=== PATIENT | male | born 1950 | race Caucasian/White ===

== ENCOUNTER 2024-08-19 20:29 | Emergency (ER) | payer OTHER, SELFPAY ==
[2024-08-19 20:30] VITALS: BMI 20.9
[2024-08-19 21:09] VITALS: BP 119/71; PULSE 85; RESP 18; TEMP 37.1; O2SAT 99
--- NOTE | 2024-08-19 22:33 | EDNOTE_ITS ---
ED General RME/HPI General Chief complaint: General Adult/Misc Complain Stated complaint: SENT BY PCP FOR BLOOD TRANSFUSION Time Seen by Provider: 08/19/24 21:24 Arrival date/time: 08/19/24 20:29 73M with no known PMH presents to ED with sister for blood transfusion after outpatient Hgb was 6.5. Patient has outpatient EGD/colonoscopy and other evaluation in the process. Patient has no complaints and does not want to be admitted. Sister does note he's had increased weakness and unintentional weight loss in the past year. Patient does not note his stool to be abnormal. Limitations: no limitations Related Data Allergies Allergy/AdvReac Type Severity Reaction Status Date / Time No Known Allergies Allergy Verified 08/19/24 20:30 Review of Systems Review of Systems Systems Reviewed: All systems reviewed, normal except as documented Constitutional Constitutional: Reports system reviewed and no additional complaints, except as documented, Denies fever(s), Denies headache(s) and Reports weakness ENT Ears, Nose, Mouth, and Throat: Denies disequilibrium and Denies headache(s) Cardiovascular Cardiovascular: Reports system reviewed and no additional complaints, except as documented, Denies chest pain and Denies dyspnea Respiratory Respiratory: Reports system reviewed and no additional complaints, except as documented, Denies cough and Denies dyspnea Gastrointestinal Gastrointestinal: Reports system reviewed and no additional complaints, except as documented, Denies abdominal pain, Denies nausea and Denies vomiting Neurologic Neurologic: Reports system reviewed and no additional complaints, except as documented, Reports as per HPI, Denies confusion, Denies disequilibrium, Denies headache(s) and Reports weakness Psychiatric Psychiatric: Denies confusion Past Medical History Social History SMOKING STATUS: Current every day smoker ED Exam General Limitations: Present no limitations General appearance: Present alert and in no apparent distress Head Head exam: Present atraumatic Eye Eye exam: Present normal appearance, PERRL and EOMI ENT ENT exam: Present normal exam, normal oropharynx and mucous membranes moist Neck Neck exam: Present normal inspection, full ROM and trachea midline Chest Chest inspection: Present normal inspection and symmetric chest wall rise Respiratory Respiratory exam: Present normal lung sounds bilaterally Cardiovascular Cardiovascular exam: Present regular rate, normal rhythm and normal heart sounds Abdominal Exam Abdominal exam: Present soft and normal bowel sounds Extremities Exam Extremities exam: Present normal inspection and full ROM Back Exam Back exam: Present normal inspection and full ROM Neurological Exam Neurological exam: Present alert, oriented X3 and CN II-XII intact Psychiatric Psychiatric exam: Present normal affect and normal mood Skin Skin exam: Present warm, dry, intact and normal color Course Course Course Narrative: 73M with no known PMH presents to ED with sister for blood transfusion after outpatient Hgb was 6.5. Patient has outpatient EGD/colonoscopy and other evaluation in the process. Patient has no complaints and does not want to be a dmitted. Sister does note he's had increased weakness and unintentional weight loss in the past year. Patient does not note his stool to be abnormal. Physical exam reveals no ab tenderness/mass. Patient is afebrile, calm, and alert. Patient given 2 units. Patient again wants to be discharged and will follow-up outpatient. Patient and his sister would prefer another GI specialist. Quality Measures none Orders Category Date Time Status Insert IV NOW Care 08/19/24 21:25 Active Transfuse,blood/blood products ONCE Care 08/19/24 22:49 Active Type and Screen Stat Lab 08/19/24 21:47 Completed prbc [Red Blood Cells] Stat Lab 08/19/24 21:47 Completed Vital Signs Vital signs: Vital Signs Temperature 98.8 F 08/19/24 21:09 Pulse Rate 85 08/19/24 21:09 Respiratory Rate 18 08/19/24 21:09 Blood Pressure 119/71 08/19/24 21:09 Pulse Oximetry (%) 99 08/19/24 21:09 Oxygen Delivery Method Room Air 08/19/24 21:09 O2 at 99% on RA and WNLs MDM Patient data External records reviewed:: [facility] previous records Clinical information provided by:: patient and family Social determinants that could affect healthcare access:: none Patient has the following chronic illnesses:: none How is presenting disease/condition affected by chronic disease/condition?: no chronic disease Evaluation data The following diagnostics were reviewed and interpreted by me:: lab results Lab and/or radiology exams considered but not ordered:: ordered Interpretation Summary: above Medications Medications considered but not ordered:: not ordered Medication administrations:: n/a Consultations Consultation(s) initiated? (list below): No Diagnosis Differential Diagnosis ED Complaint MDM: anemia, colon cancer, GERALD, gastritis Most likely diagnosis given after review of the tests above:: anemia Admission Indicated Admission indicated?: not indicated Explain why admission is indicated or not indicated:: outpatient Admission Request Was there a request for admission?: No Disposition Plan Disposition Plan: Discharge Discharge Attestation Discharge Attestation: The patient and all family members were given an opportunity to ask questions and understood the discharge instructions. Discharge instructions specifically effects, indications for sooner follow up or return to the emergency department, and the expected course of current diagnosis. Patient condition: Stable Medical Decision Making Differential Diagnosis Differential Diagnosis: anemia, colon cancer, GERALD, gastritis Lab Data Labs: Lab Results 08/19/24 Range/Units 21:47 Blood Type O Positive Antibody Screen NEGATIVE Crossmatch See Detail Blood Bank Wristband ID Yes Discharge Plan Plan Patient Disposition: HOME (Self Care) Disposition Comment: Stable Prescriptions/Referrals Referrals: Ashwin Hammer MD [Primary Care Provider] - In 1 week Problem List Clinical Impression: Anemia Patient/Caregiver Discharge Instructions Education Materials: Anemia Additional Instructions: Please follow-up with PCP within 24-48 hours and return immediately if symptoms worsen. Print Language: Uzbek Stand Alone Forms: Patient Portal Info Letter TAMY/WILDA Supervising Physician YECENIA Supervising Physician: Dr. Sandy
[2024-08-20] VITALS (8 sets, daily range): BP systolic 101–168; BP diastolic 48–90; PULSE 64–75; RESP 18; TEMP 36.8–37.1; O2SAT 99–100
--- NOTE | 2024-08-20 06:40 | PC.NURSE ---
pt tolerated 2 units of blood. No advers reactions. Pt feels better.
== END 2024-08-20 06:43 | disposition home or self-care (01) ==
PROVIDERS: Emergency Provider Emergency Medicine; PCP Family Medicine
DX: D64.9 Anemia, unspecified (principal)
CPT/HCPCS: 36415; 36430; 86850; 86900; 86901; 86923; 99285; P9016

== ENCOUNTER → 2024-08-19 | Outpatient (CLI) | payer MEDICARE, SELFPAY ==
--- NOTE | 2024-08-19 16:08 | XR_ITS ---
Examination: Lumbar spine, 5 views Technique: Lumbar spine AP, lateral, coned lateral lower lumbar spine, bilateral obliques 5 views Exam date and time: August 19, 2024 1620 hours INDICATIONS: Patient fell last year with injury to the lower back, lower back pain FINDINGS: Moderate narrowing hip joints Moderate to advanced diffuse facet arthropathy Grade 1 anterolisthesis L4 on L5 No lumbar fracture Mild lumbar spondylosis Mild to moderate diffuse lumbar degenerative disc disease, most prominent L4-L5, L5-S1 IMPRESSION: Mild to moderate diffuse lumbar degenerative disc disease, most prominent L4-L5, L5-S1 with significant spinal stenosis
[2024-08-19 17:11] LABS: Collection Type, Urine Clean Catch; Squamous Epithelial Cell,Urine 0 /hpf (0-5)
[2024-08-19 17:31] LABS: Basophils # (Auto) 0.1 Thou/mm3 (0.0-0.2); Basophils % (Auto) 1 % (0-2.5); Eosinophils # (Auto) 0.1 Thou/mm3 (0.0-0.5); Eosinophils % (Auto) 1 % (0-10); Hematocrit 22.3 % (41.0-53.0); Immature Granulocytes % (Auto) 0 % (0-0); Immature Granulocytes Auto 0.05 Thou/mm3 (0.00-0.00); Lymphocytes # (Auto) 1.5 Thou/mm3 (1.0-4.8); Lymphocytes % (Auto) 13 % (10-50); Mean Corpuscular HGB Conc 29.1 g/dl (31.0-37.0); Mean Corpuscular Hemoglobin 19.3 pg (25.0-35.0); Mean Corpuscular Volume 66 fL (80-100); Monocytes # (Auto) 0.8 Thou/mm3 (0.0-0.8); Monocytes % (Auto) 7 % (0-12); Neutrophils # (Auto) 8.8 Thou/mm3 (1.8-7.7); Neutrophils % (Auto) 78 % (37-80); Nucleated Red Blood Cell % 0 /100 WBC (0); Platelet Count 353 Thou/mm3 (140-440); RDW Standard Deviation 42.5 fL (35.1-43.9); Red Blood Count 3.37 Miln/mm3 (4.50-5.90); White Blood Count 11.4 Thou/mm3 (3.8-10.6)
[2024-08-19 17:55] LABS: Bilirubin,Urine Negative (Negative); Blood,Urine Negative (Negative); Clarity,Urine Clear (Clear/Hazy); Color,Urine Colorless (Lt Yel-Yel); Culture Indicated,Urine Not Indicated; Glucose, Urine Negative (Negative); Hyaline Casts,Urine < 1 /hpf (0-1); Ketones,Urine Negative (Negative); Leukocyte Esterase,Urine Negative (Negative); Nitrite,Urine Negative (Negative); Protein,Urine Trace (Neg - Trace); RBC,Urine < 1 /hpf (0-3); Specific Gravity,Urine 1.008 (1.001-1.035); Urobilinogen,Urine Negative mg/dL (0.0-1.0); WBC,Urine < 1 /hpf (0-5)
[2024-08-19 18:02] LABS: Alanine Aminotransferase < 7 U/L (10-49); Albumin, Serum 3.9 gm/dL (3.4-4.8); Albumin/Globulin Ratio 1.9 (1.2-2.2); Alkaline Phosphatase 90 U/L (46-116); Anion Gap 10 (7-16); Aspartate Amino Transferase 11 U/L (0-34); BUN/Creatinine Ratio 13 Ratio (12-20); Bilirubin,Total 0.4 mg/dL (0.3-1.2); Blood Urea Nitrogen 12 mg/dL (9-23); Calcium 9.3 mg/dL (8.3-10.6); Calcium (Corrected) 9.4 mg/dL (8.5-10.1); Carbon Dioxide 25.6 mMol/L (20.0-31.0); Chloride 104 mMol/L (98-107); Creatinine (Component) 0.9 mg/dL (0.6-1.3); Globulin 2.1 gm/dL (2.3-3.5); Glucose 197 mg/dL (74-106); Osmolality,Calculated 284 (275-295); Potassium 3.7 mMol/L (3.4-5.1); Sodium 140 mMol/L (136-145); eGFR > 60 See Note
[2024-08-19 18:03] LABS: AFP Non-Pregnant < 1.30 ng/mL (<8.10); CA 15-3 5.4 U/mL (<32.4); Carcinoembryonic Antigen 2.2 ng/mL (0.0-5.0)
[2024-08-19 18:03] LABS: Creatinine MALB Rnd Ur 32 mg/dL (30-125); Microalbumin Creat Ratio 309 mg/gCrea (<30); Microalbumin, Random Urine 99 mg/L (0-300)
[2024-08-19 18:11] LABS: Glucose Estimated Average 146 mg/dL (80-131); Hemoglobin A1C 6.7 % Hgb (4.8-6.0)
[2024-08-19 18:27] LABS: Hemoglobin 6.5 g/dL (13.5-16.0)
[2024-08-19 18:56] LABS: PSA Medicare Annual Scrn 1.34 ng/mL (0-4.00)
[2024-08-29 06:47] LABS: CA 19-9 Antigen* 54 U/mL (<34)
== END | disposition home or self-care (01) ==
LOC: CDIM 16:02 → COPL 16:42
PROVIDERS: Referring Provider Internal Medicine; Visit Provider Radiology Diagnostic Radiology
DX: M51.369 Other intervertebral disc degeneration, lumbar region without mention of lumbar back pain or lower extremity pain (principal); M48.061 Spinal stenosis, lumbar region without neurogenic claudication; R63.4 Abnormal weight loss; R05.3 Chronic cough; R42 Dizziness and giddiness; R32 Unspecified urinary incontinence; E11.65 Type 2 diabetes mellitus with hyperglycemia
CPT/HCPCS: 36415; 72110; 80053; 81001; 82043; 82105; 82378; 82570; 83036; 84153; 85025; 86300; 86301; G0103

== ENCOUNTER → 2024-08-26 | Outpatient (CLI) | payer OTHER, SELFPAY ==
--- NOTE | 2024-08-26 | XR_ITS ---
Examination: CT chest, without intravenous contrast. Sagittal and coronal 2-D reconstructions. Exam date and time: August 26, 2024 1536 hours INDICATIONS: Smoking history 60 years D dependence CTDI:vol (mGy) 10.3 DLP: (mGycm) 415 Technique: Multiple 3.0 mm axial sections of the chest to been obtained. Bone and lung density settings are obtained. Sagittal and coronal 2-D reconstructions have been obtained. Low dose protocols were performed. One or more of the following dose reduction techniques were used; automated exposure control, adjustment of the mA and/or KV according to patient size, use of iterative reconstruction technique. Findings: Thoracic aortic calcification no aneurysmal dilatation Pulmonary artery segments are not enlarged No paratracheal tracheobronchial or bronchopulmonary adenopathy 4 mm pleural-based pulmonary nodule left upper lobe image 17 2 mm pulmonary nodule left upper lobe image 20 2 mm pulmonary nodule right upper lobe image 40 3 mm pulmonary nodule left lower lobe image 54 COPD with areas of airspace destruction No focal liver or splenic lesion Please see the CT abdomen pelvis report IMPRESSION: COPD Noncalcified pulmonary nodules as above, with this study as baseline recommend 6 month follow-up CT chest without contrast
--- NOTE | 2024-08-26 15:13 | XR_ITS ---
Examination: CT abdomen and pelvis without contrast. Coronal 3-D reconstructions. Sagittal 2-D reconstructions. Date and time of exam:August 26, 2024 1536 hours INDICATIONS: 30 pound Weight loss in 3 months, abdominal pain beginning one week ago CTDI: vol (mGy): 6.52 DLP: (mGycm): 396 Technique: Axial images of the abdomen have been obtained, 3 mm slice thickness Intravenous contrast material has not been administered. Low dose protocols were performed. One or more of the following dose reduction techniques were used; automated exposure control, adjustment of the mA and/or KV according to patient size, use of iterative reconstruction technique. Findings: Liver mildly irregular in contour No focal liver or splenic lesions Possible gallbladder wall thickening Retrocardiac gastric hernia No pancreatic mass No renal or ureteral calculi Mild ascites 3 cm fat-containing umbilical hernia Normal appendix No bladder mass or bladder calculi Moderate osteopenia IMPRESSION: Suspect primary hepatocellular disease Mild ascites Recommend hepatobiliary sonography to exclude gallbladder wall thickening Normal appendix No bowel obstruction Suspicious for bilateral hydroceles, consider testicular sonography follow-up
[2024-08-26 15:17] LABS: Basophils # (Auto) 0.1 Thou/mm3 (0.0-0.2); Basophils % (Auto) 1 % (0-2.5); Eosinophils # (Auto) 0.2 Thou/mm3 (0.0-0.5); Eosinophils % (Auto) 2 % (0-10); Hematocrit 29.1 % (41.0-53.0); Immature Granulocytes % (Auto) 1 % (0-0); Immature Granulocytes Auto 0.06 Thou/mm3 (0.00-0.00); Lymphocytes # (Auto) 2.1 Thou/mm3 (1.0-4.8); Lymphocytes % (Auto) 16 % (10-50); Mean Corpuscular HGB Conc 29.6 g/dl (31.0-37.0); Mean Corpuscular Hemoglobin 21.1 pg (25.0-35.0); Mean Corpuscular Volume 71 fL (80-100); Monocytes # (Auto) 0.8 Thou/mm3 (0.0-0.8); Monocytes % (Auto) 6 % (0-12); Neutrophils # (Auto) 9.7 Thou/mm3 (1.8-7.7); Neutrophils % (Auto) 75 % (37-80); Nucleated Red Blood Cell % 0 /100 WBC (0); Platelet Count 340 Thou/mm3 (140-440); RDW Standard Deviation 57.2 fL (35.1-43.9); Red Blood Count 4.08 Miln/mm3 (4.50-5.90)
[2024-08-26 15:58] LABS: Hemoglobin 8.6 g/dL (13.5-16.0)
== END | disposition home or self-care (01) ==
PROVIDERS: PCP Internal Medicine; Referring Provider Internal Medicine; Visit Provider Radiology Diagnostic Radiology
DX: R18.8 Other ascites (principal); J44.9 Chronic obstructive pulmonary disease, unspecified; R91.1 Solitary pulmonary nodule; D64.9 Anemia, unspecified
CPT/HCPCS: 36415; 71271; 74176; 85025

== ENCOUNTER 2024-09-01 21:30 | Inpatient (IN) | payer OTHER, MEDICARE, SELFPAY ==
[2024-09-01 21:34] VITALS: BP 139/66; PULSE 72; RESP 19; TEMP 36.8; O2SAT 98
--- NOTE | 2024-09-01 22:47 | EKG_ITS ---
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
[2024-09-01 23:36] LABS: Basophils # (Auto) 0.1 Thou/mm3 (0.0-0.2); Basophils % (Auto) 1 % (0-2.5); Eosinophils # (Auto) 0.3 Thou/mm3 (0.0-0.5); Eosinophils % (Auto) 2 % (0-10); Hematocrit 26.7 % (41.0-53.0); Immature Granulocytes % (Auto) 0 % (0-0); Immature Granulocytes Auto 0.05 Thou/mm3 (0.00-0.00); Lymphocytes # (Auto) 2.2 Thou/mm3 (1.0-4.8); Lymphocytes % (Auto) 20 % (10-50); Mean Corpuscular Hemoglobin 21.6 pg (25.0-35.0); Mean Corpuscular Volume 72 fL (80-100); Monocytes # (Auto) 0.8 Thou/mm3 (0.0-0.8); Monocytes % (Auto) 7 % (0-12); Neutrophils # (Auto) 7.9 Thou/mm3 (1.8-7.7); Neutrophils % (Auto) 70 % (37-80); Nucleated Red Blood Cell % 0 /100 WBC (0); Platelet Count 323 Thou/mm3 (140-440); RDW Standard Deviation 61.3 fL (35.1-43.9); White Blood Count 11.4 Thou/mm3 (3.8-10.6)
[2024-09-01 23:46] VITALS: BMI 23.1
[2024-09-01 23:54] LABS: Partial Thromboplastin Time 23.9 Seconds (22.0-36.0); Prothrombin Time 11.3 Seconds (9.0-12.2)
[2024-09-02] VITALS (17 sets, daily range): BP systolic 104–163; BP diastolic 49–92; PULSE 65–90; RESP 12–19; TEMP 36.2–36.6; O2SAT 94–100; BMI 23.6
[2024-09-02 00:05] LABS: Alanine Aminotransferase 7 U/L (10-49); Albumin, Serum 3.8 gm/dL (3.4-4.8); Albumin/Globulin Ratio 1.7 (1.2-2.2); Alkaline Phosphatase 89 U/L (46-116); Anion Gap 8 (7-16); Aspartate Amino Transferase 12 U/L (0-34); BUN/Creatinine Ratio 19 Ratio (12-20); Bilirubin,Total 0.3 mg/dL (0.3-1.2); Blood Urea Nitrogen 15 mg/dL (9-23); Calcium 9.1 mg/dL (8.3-10.6); Calcium (Corrected) 9.3 mg/dL (8.5-10.1); Chloride 101 mMol/L (98-107); Creatinine (Component) 0.8 mg/dL (0.6-1.3); Estimated Creatinine Clearance 79.6 mL/min (>60); Globulin 2.3 gm/dL (2.3-3.5); Glucose 194 mg/dL (74-106); Osmolality,Calculated 277 (275-295); Potassium 3.5 mMol/L (3.4-5.1); Sodium 136 mMol/L (136-145); Total Protein 6.1 gm/dL (5.7-8.2); Troponin I < 0.020 ng/mL (0.0-0.045); eGFR > 60 See Note
--- NOTE | 2024-09-02 00:40 | PD.EDADDENDU ---
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 Heme positive dark stool No hemorrhoids.
--- NOTE | 2024-09-02 00:48 | PD.EDADULT ---
ED General RME/HPI General Chief complaint: Dizziness Stated complaint: DIZZINESS/LOW HR/HYPOTENSION Time Seen by Provider: 09/01/24 22:47 Arrival date/time: 09/01/24 21:30 73M with history of afib (doesn't take meds) presents to ED with son for low HgB outpatient. Patient was here 2 weeks ago with HgB 6.5 and was given 2 units. At that time, patient did not want to be admitted for EGD/colonoscopy and wanted to wait for outpatient process. Family was able to convince him today. Patient has no complaints but does note that he's been feeling increased weakness and unintentional weight loss in the past year. Recent outpatient CT w/o contrast was unremarkable. Limitations: no limitations Related Data Allergies Allergy/AdvReac Type Severity Reaction Status Date / Time No Known Allergies Allergy Verified 09/01/24 21:36 Review of Systems Review of Systems Systems Reviewed: All systems reviewed, normal except as documented Constitutional Constitutional: Reports system reviewed and no additional complaints, except as documented, Reports as per HPI, Denies fever(s), Denies headache(s), Reports weakness and Reports weight loss ENT Ears, Nose, Mouth, and Throat: Denies disequilibrium and Denies headache(s) Cardiovascular Cardiovascular: Reports system reviewed and no additional complaints, except as documented, Denies chest pain and Denies dyspnea Respiratory Respiratory: Reports system reviewed and no additional complaints, except as documented, Denies cough and Denies dyspnea Gastrointestinal Gastrointestinal: Reports system reviewed and no additional complaints, except as documented, Denies abdominal pain, Denies nausea and Denies vomiting Neurologic Neurologic: Reports system reviewed and no additional complaints, except as documented, Reports as per HPI, Denies confusion, Denies disequilibrium, Denies headache(s) and Reports weakness Psychiatric Psychiatric: Denies confusion Past Medical History Past Medical History CARDIAC: Positive Atrial Fibrillation and Hypertension; Negative Congestive Heart Failure RESPIRATORY: Negative Chronic Obstructive Pulmonary Disease (COPD) GENITOURINARY: Negative Renal Disease ENDOCRINE: Negative Diabetes Mellitus Type 1 or Diabetes Mellitus Type 2 Social History SMOKING STATUS: Light (< 1 pack/day) ED Exam General Limitations: Present no limitations General appearance: Present alert and in no apparent distress Head Head exam: Present atraumatic Eye Eye exam: Present normal appearance, PERRL and EOMI ENT ENT exam: Present normal exam, normal oropharynx and mucous membranes moist Neck Neck exam: Present normal inspection, full ROM and trachea midline Chest Chest inspection: Present normal inspection and symmetric chest wall rise Respiratory Respiratory exam: Present normal lung sounds bilaterally Cardiovascular Cardiovascular exam: Present regular rate, normal rhythm and normal heart sounds Abdominal Exam Abdominal exam: Present soft and normal bowel sounds Extremities Exam Extremities exam: Present normal inspection and full ROM Back Exam Back exam: Present normal inspection and full ROM Neurological Exam Neurological exam: Present alert, oriented X3 and CN II-XII intact Psychiatric Psychiatric exam: Present normal affect and normal mood Skin Skin exam: Present warm, dry, intact and normal color Course Course Course Narrative: 73M with history of afib (doesn't take meds) presents to ED with son for low HgB outpatient. Patient was here 2 weeks ago with HgB 6.5 and was given 2 units. At that time, patient did not want to be admitted for EGD/colonoscopy and wanted to wait for outpatient process. Family was able to convince him today. Patient has no complaints but does note that he's been feeling increased weakness and unintentional weight loss in the past year. Recent outpatient CT w/o contrast was unremarkable. Physical exam reveals no ab tenderness/mass. Patient is afebrile, calm, and alert. Hgb 8.0 today. Coags and CMP unremarkable. Guaiac stool positive. EKG shows afib w/o RVR. Trop normal. Spoke to Dr. Rapp who will consult and IM (spoke to Dr. Huerta) will admit. Quality Measures none Orders Category Date Time Status COVID-19 Screening Questionnaire NOW Care 09/02/24 00:58 Active Decision to Admit X1 Care 09/02/24 00:58 Active EKG (ED ONLY) *Do not use* NOW Care 09/01/24 22:47 Completed Insert IV NOW Care 09/01/24 22:47 Active guaiac [Occult Blood,Stool (Nursing)] NOW Care 09/02/24 00:33 Active Consult to Gastroenterology Stat Cons 09/02/24 00:58 Ordered EKG (ED Only) Stat Exams 09/01/24 22:47 Draft CBC Stat Lab 09/01/24 23:11 Completed CMP [Comprehensive Metabolic Panel] Stat Lab 09/01/24 23:11 Completed INR [Prothrombin Time with INR] Stat Lab 09/01/24 23:11 Completed PTT [Partial Thromboplastin Time] Stat Lab 09/01/24 23:11 Completed Troponin I Stat Lab 09/01/24 23:11 Completed Type and Screen Stat Lab 09/01/24 23:11 Results Vital Signs Vital signs: Vital Signs Temperature 98.3 F 09/01/24 21:34 Pulse Rate 72 09/01/24 21:34 Respiratory Rate 19 09/01/24 21:34 Blood Pressure 139/66 H 09/01/24 21:34 Pulse Oximetry (%) 98 09/01/24 21:34 Oxygen Delivery Method Room Air 09/01/24 21:34 O2 at 98% on RA and WNLs MDM Patient data External records reviewed:: [facility] previous records Clinical information provided by:: patient Social determinants that could affect healthcare access:: none Patient has the following chronic illnesses:: afib How is presenting disease/condition affected by chronic disease/condition?: exacerbated by Evaluation data The following diagnostics were reviewed and interpreted by me:: lab results and EKG tracing(s) Lab and/or radiology exams considered but not ordered:: ordered Interpretation Summary: above Medications Medications considered but not ordered:: ordered Medication administrations:: above Consultations Consultation(s) initiated? (list below): Yes Diagnosis Differential Diagnosis ED Complaint MDM: GI bleed, CKD, anemia Most likely diagnosis given after review of the tests above:: anemia Admission Indicated Admission indicated?: indicated Explain why admission is indicated or not indicated:: low hGB and GI bleed Admission Request Was there a request for admission?: Yes Admission Attestation Admission request attestation: Discussed case with [Bradley] from Hospitalist service regarding admission. Discussed patients ED course, exam findings, labs, and radiology results. The Hospitalist [agrees] to accept the patient for admission. Disposition Plan Disposition Plan: Admit Medical Decision Making Differential Diagnosis Differential Diagnosis: GI bleed, CKD, anemia Lab Data 09/01/24 23:11 09/01/24 23:11 Labs: Lab Results 09/01/24 Range/Units 23:11 WBC 11.4 H (3.8-10.6) Thou/mm3 RBC 3.70 L (4.50-5.90) Miln/mm3 Hgb 8.0 L (13.5-16.0) g/dL Hct 26.7 L (41.0-53.0) % MCV 72 L (80-100) fL MCH 21.6 L (25.0-35.0) pg MCHC 30.0 L (31.0-37.0) g/dl RDW Std Deviation 61.3 H (35.1-43.9) fL Plt Count 323 (140-440) Thou/mm3 Neut % (Auto) 70 (37-80) % Lymph % (Auto) 20 (10-50) % [place] % (Auto) 7 (0-12) % Eos % (Auto) 2 (0-10) % Baso % (Auto) 1 (0-2.5) % Neut # (Auto) 7.9 H (1.8-7.7) Thou/mm3 Lymph # (Auto) 2.2 (1.0-4.8) Thou/mm3 [place] # (Auto) 0.8 (0.0-0.8) Thou/mm3 Eos # (Auto) 0.3 (0.0-0.5) Thou/mm3 Baso # (Auto) 0.1 (0.0-0.2) Thou/mm3 Immature Gran # (Auto) 0.05 H (0.00-0.00) Thou/mm3 Absolute Nucleated RBC 0.00 (0.00-0.00) Thou/mm3 Immature Gran % 0 (0-0) % Nucleated RBC % 0 (0) /100 WBC PT 11.3 (9.0-12.2) Seconds INR 1.0 (0.9-1.3) APTT 23.9 (22.0-36.0) Seconds Sodium 136 (136-145) mMol/L Potassium 3.5 (3.4-5.1) mMol/L Chloride 101 (98-107) mMol/L Carbon Dioxide 27.0 (20.0-31.0) mMol/L Anion Gap 8 (7-16) BUN 15 (9-23) mg/dL Creatinine 0.8 (0.6-1.3) mg/dL Estim Creat Clear Calc 79.6 (>60) mL/min eGFR > 60 (60 - ) See Note BUN/Creatinine Ratio 19 (12-20) Ratio Glucose 194 H (74-106) mg/dL Calculated Osmolality 277 (275-295) Calcium 9.1 (8.3-10.6) mg/dL Corrected Calcium 9.3 (8.5-10.1) mg/dL Total Bilirubin 0.3 (0.3-1.2) mg/dL AST 12 (0-34) U/L ALT 7 L (10-49) U/L Alkaline Phosphatase 89 (46-116) U/L Troponin I < 0.020 (0.0-0.045) ng/mL Total Protein 6.1 (5.7-8.2) gm/dL Albumin 3.8 (3.4-4.8) gm/dL Globulin 2.3 (2.3-3.5) gm/dL Albumin/Globulin Ratio 1.7 (1.2-2.2) Blood Bank Wristband ID Yes Discharge Plan Plan Patient Disposition: Admit Acute Care w/in Hospital Problem List Clinical Impression: Anemia Patient/Caregiver Discharge Instructions Print Language: Taiwanese Stand Alone Forms: Jodie Award Info., Patient Portal Info Letter
--- NOTE | 2024-09-02 01:39 | ESHP_ITS ---
Documentation for date of: 09/02/24 [facility] History of Present Illness History of present illness: This is a 73-year-old male with PMHx of A-fib, currently not medicated, presenting after ground-level fall and history of dark stool. He is hard of hearing, lives at home with his son. Stated he has been feeling dizzy and lightheaded while getting up from a seated position. Evidently last night he fell while getting up from his couch. He did not hit his head or lose consciousness. States he remembers the event, did not pass out or lose consciousness. However, history is unclear, he is a poor historian, and will need to discuss this with his son in the AM. Had history of ongoing dark stool over the last few months. He was in the ED 2 weeks ago with a hemoglobin of 6.5. He was transfused 2 units in the ED, posttransfusion hemoglobin was 8.6, he refused admission for workup at that time. He is still having daily dark stool. He was seen by his PCP earlier today who recommended hospital visit. He has a history of A-fib but currently not taking any medication. Has a longstanding history of tobacco smoking, about 3 pack a day, recently cut down to 1 pack daily. He previously used to drink alcohol, but not currently. Denies or illicit drug use. Reports substantial weight loss since his daughter 1 year ago. Evidently he is to weigh 250 lbs, his current weight is 152 lbs. I did ask if this was unintentional, purposeful, or due to lack of appetite, but he refused to comment, stated he is not depressed, denied night sweats or chills. Denied fever, chills, head trauma, chest pain, shortness of breath, palpitation, abdominal pain, N/V/D/C, dysuria, hematuria, urinary frequency or urgency. ED COURSE: Afebrile, BP 139/66, HR 72, RR 19, satting 98% on room air. Hgb 8.0, MCV 72, HCT 26.7, WBC 11.4, platelets 323. Normal coag studies. CHEM panel significant for GLUCOSE 194, otherwise normal including LFTs, troponin, and creatinine. EKG showed A-fib, HR 84, no acute ST changes. PMHx: A-fib. PSHx: Left pinky partial amputation. MEDS: None. ALLERGIES: NKA. FHx: No significant history. SH: Current heavy smoker, previous alcohol use, no marijuana or illicit drug use. Exam Vital Signs Temp Pulse Resp BP Pulse Ox O2 Del Method 98.3 F 70 16 156/81 H 97 Room Air 09/01/24 21:34 09/02/24 00:29 09/02/24 00:29 09/02/24 00:29 09/02/24 00:29 09/02/24 00:29 Narrative Exam GENERAL * Normal appearing adult male, no apparent distress. HEENT * NCAT.?SUGAR. Oral mucosa is moist. Patent Nares NECK * Supple, nontender, no thyromegaly, no meningismus, no JVD, no step offs CHEST * RRR, no m/g/r * CTAB, no w/r/r. Symmetrical chest rise. No intercostal subcostal retraction * Atraumatic, nontender, no crepitus, symmetrical expansion. ABDOMEN * Soft, flat, nontender. No guarding/rebound tenderness/masses. * Bowel sounds presents EXTREMITIES * No edema/cyanosis.? SKIN * Warm and dry, no jaundice/rashes. * Chronic senile purpura. NEUROMUSCULAR * No lumbar or midline, no CVA, no paraspinal muscle spasm or tenderness. * Moves all 4 extremities well, with full ROM and good CSM. * PIZANO x4, CN II-XII grossly intact. * No focal neurologic deficits. PSYCHIATRY * Normal mood and affect, cooperative, no SI or HI or hallucinations. Results: Labs 09/02/24 05:14 09/01/24 23:11 Labs: Short CBC 09/01/24 Range/Units 23:11 WBC 11.4 H (3.8-10.6) Thou/mm3 Hgb 8.0 L (13.5-16.0) g/dL Hct 26.7 L (41.0-53.0) % Plt Count 323 (140-440) Thou/mm3 BMP 09/01/24 23:11 Sodium 136 Potassium 3.5 Chloride 101 Carbon Dioxide 27.0 BUN 15 Creatinine 0.8 Glucose 194 H Calcium 9.1 Cardiac Enzymes 09/01/24 Range/Units 23:11 Troponin I < 0.020 (0.0-0.045) ng/mL Liver Function 09/01/24 Range/Units 23:11 Total Bilirubin 0.3 (0.3-1.2) mg/dL AST 12 (0-34) U/L ALT 7 L (10-49) U/L Alkaline Phosphatase 89 (46-116) U/L Albumin 3.8 (3.4-4.8) gm/dL Quality Measures Quality Measures none Advance care planning discussed with:: patient Medications Home Medications and Allergies Allergies Allergy/AdvReac Type Severity Reaction Status Date / Time No Known Allergies Allergy Verified 09/01/24 21:36 Visit Medications Acetaminophen (Acetaminophen 325 Mg Tablet) 650 mg PO Q6H PRN PRN Reason: PAIN SCALE 1-3 (mild Stop: 10/02/24 01:26 Acetaminophen (Acetaminophen 325 Mg Tablet) 650 mg PO Q6H PRN PRN Reason: Fever >100.4 Stop: 10/02/24 01:26 Ondansetron HCl (Ondansetron Inj 2 Mg/Ml Inj 2 Ml) 4 mg IV Q6H PRN; Protocol PRN Reason: NAUSEA OR VOMITING Stop: 10/02/24 01:26 Pantoprazole Sodium (Pantoprazole Inj 40 Mg Vial) 40 mg IVP QDAY ANTONI Stop: 10/02/24 08:59 Assessment & Plan Plan In summary: 73-year-old male with past medical history of atrial fibrillation, admitted for presyncope in settings of GI blood loss anemia. Appreciate recommendation from GI team. Presyncope DDx: Orthostatics 2/2 blood loss, possible arrhythmia. Reports ongoing dizziness and lightheadedness when rising from seated position. Presyncopal episode last night while getting up from couch. Denied head trauma, loss consciousness. Remember events clearly, no seizure-like activities, no postictal symptoms or confusion. Vitals and labs relatively WNL except for WBC 11.4, Hgb 8.0 and GLUCOSE 196. No focal neurological deficits, low suspicion for CVA. ? Treating underlying cause as below ? Refer to physical therapy when able ? Pending lipid panel ? Pending TSH, T4 ? Consider echocardiogram Acute GI blood loss anemia Unintentional weight loss He has history of dark stool, was in the ED 2 weeks ago with hemoglobin 6.4, transfuse 1 unit, refused admission at that time, discharged with hemoglobin 8.6 Returning with persistent dark stool, Hgb 8.0. Reports 100 lb weight loss over the last year, following the of his daughter. FOBT positive. Normal coag studies. Abdominal CT from last week showed no evidence of acute GI bleed. No previous endoscopy or colonoscopy. No B symptoms. Dr. Rapp was consulted by ED, recommended admission for endoscopy. ? NPO ? Ordered type and screening, and 1 unit PRBC ? Transfuse if Hgb less than 7 ? Continue PROTONIX 40 mg BID ? Pending GI recommendations Atrial fibrillation, rate controlled Seen on EKG, HR 84. Currently does not take any medications. Possibly contributing to [id number] 2 indicate 2-5% CVA risk annually. HAS-BLED to indicate 4.1% risk of bleed. ? Consider anticoagulation once anemia resolved Elevated GLUCOSE Admission GLUCOSE 194. A1c 6.7 from last week. No home glycemic control agents. ? INSULIN sliding scale ? Accu-Cheks Health maintenance Diet: NPO GI prophylaxis: PROTONIX DVT prophylaxis: SCD Antibiotics: Not indicated CODE STATUS: DNR Disposition: Presyncope workup, acute GI bleed, GI recommendations. Patient case was discussed with attending, Aldo Peterson MD. Myrtle Butler DO PGYI Attending Provider Attestation/Addendum I attest that I was physically present for the evaluation, physical examination, lab and imaging review of the patient with the residents. I discussed the case with the residents and agree with the findings and plans of care as documented above. Patient is a 73-year-old male with past medical history of A-fib presented to the ED following ground-level fall. Patient had a fall yesterday while getting up from the couch. Denies hitting his head. Patient had a recent visit to the ED about 2 weeks ago where he was found to have hemoglobin of 6.5. He received 2 units of PRBC, refused admission at that time. He does have a history of dark stool, was seen by his PCP earlier today who recommended to visit the ED. He also mentioned about weight loss from 250 to 150 pounds over last few years since his daughter . In the ED, vital signs are within normal limits. Hemoglobin is 8.0. Glucose level at 194, rest of the labs are nonconcerning. EKG was obtained in the ED which shows A-fib, rate controlled. GI was consulted by the ED, who recommended admission for further management. We will admit the patient for acute blood loss anemia secondary to GI bleeding. We will keep patient n.p.o., obtain type and cross, start on Protonix IV and obtain GI consult. We will also obtain orthostatic vitals, TSH, physical therapy for possible presyncope. Patient is currently not on any medication for A-fib. His [id number] score is 2, unable to anticoagulate for due to GI bleed. Started on insulin sliding scale for elevated glucose. Denice Peterson MD
--- NOTE | 2024-09-02 03:00 | PC.NURSE ---
0300 Hold PRBC for HG below 7.[address] Butler
[2024-09-02 05:53] LABS: Basophils # (Auto) 0.1 Thou/mm3 (0.0-0.2); Basophils % (Auto) 1 % (0-2.5); Eosinophils # (Auto) 0.4 Thou/mm3 (0.0-0.5); Eosinophils % (Auto) 4 % (0-10); Hematocrit 24.3 % (41.0-53.0); Immature Granulocytes % (Auto) 0 % (0-0); Immature Granulocytes Auto 0.03 Thou/mm3 (0.00-0.00); Lymphocytes # (Auto) 2.1 Thou/mm3 (1.0-4.8); Lymphocytes % (Auto) 19 % (10-50); Mean Corpuscular Hemoglobin 21.5 pg (25.0-35.0); Mean Corpuscular Volume 72 fL (80-100); Monocytes % (Auto) 9 % (0-12); Neutrophils # (Auto) 7.9 Thou/mm3 (1.8-7.7); Neutrophils % (Auto) 68 % (37-80); Nucleated Red Blood Cell % 0 /100 WBC (0); Platelet Count 294 Thou/mm3 (140-440); RDW Standard Deviation 60.9 fL (35.1-43.9); Red Blood Count 3.39 Miln/mm3 (4.50-5.90); White Blood Count 11.6 Thou/mm3 (3.8-10.6)
[2024-09-02 05:55] LABS: Hemoglobin 7.3 g/dL (13.5-16.0)
[2024-09-02 06:33] LABS: Alanine Aminotransferase < 7 U/L (10-49); Albumin, Serum 3.3 gm/dL (3.4-4.8); Albumin/Globulin Ratio 1.7 (1.2-2.2); Alkaline Phosphatase 78 U/L (46-116); Anion Gap 7 (7-16); Aspartate Amino Transferase 12 U/L (0-34); BUN/Creatinine Ratio 20 Ratio (12-20); Bilirubin,Total 0.3 mg/dL (0.3-1.2); Blood Urea Nitrogen 14 mg/dL (9-23); Calcium 8.6 mg/dL (8.3-10.6); Calcium (Corrected) 9.2 mg/dL (8.5-10.1); Carbon Dioxide 28.7 mMol/L (20.0-31.0); Cardiac Risk Estimate 2.2 RATIO (4.0-6.7); Chloride 103 mMol/L (98-107); Cholesterol 114 mg/dL (132-200); Creatinine (Component) 0.7 mg/dL (0.6-1.3); Estimated Creatinine Clearance 90.9 mL/min (>60); Free T4 (Free Thyroxine) 1.22 ng/dL (0.89-1.76); Glucose 115 mg/dL (74-106); HDL Cholesterol 53 mg/dL (40-60); LDL Cholesterol,Calculated 44 mg/dL (0-130); Magnesium 1.9 mg/dL (1.6-2.6); Osmolality,Calculated 279 (275-295); Phosphorous 3.3 mg/dL (2.4-5.1); Potassium 3.7 mMol/L (3.4-5.1); Sodium 139 mMol/L (136-145); Thyroid Stimulating Hormone 2.36 uIU/mL (0.55-4.78); Total Protein 5.3 gm/dL (5.7-8.2); Triglycerides 87 mg/dL (30-150); eGFR > 60 See Note
[2024-09-02] MEDS: PANTOPRAZOLE INJ 40 MG VIAL IVP ×2 (08:58→21:22)
--- NOTE | 2024-09-02 10:23 | ESPR_ITS ---
<Statement entered by Stacia Damon MD - 09/04/24 13:24> I reviewed above note and agree with findings and plans. I have also personally examined the patient with medicine team and went over assessment and plan with medical team including multicultural internship and resident physician. Documentation for date of: 09/02/24 Subjective Subjective Interval history: No overnight events. Patient seen and examined at bedside, resting comfortably. Patient denies weakness, fatigue, shortness of breath, chest pain, abdominal pain. Patient is minimally compliant with questioning. Expresses desire to get this over with . Recheck hemoglobin this afternoon, will transfuse if needed. Holding anticoagulation. Started on insulin sliding scale for diabetes. Follow-up with GI. Exam Vital Signs Temp Pulse Resp BP Pulse Ox O2 Del Method 97.8 F 76 18 135/49 H 96 Room Air 09/02/24 08:00 09/02/24 08:00 09/02/24 08:00 09/02/24 08:00 09/02/24 08:00 09/02/24 08:00 Narrative Exam PE: Gen: Well-developed and well-nourished. Minimally cooperative with exam. HEENT: NCAT, PERRLA, EOMI, MMM, anicteric conjunctivae. CVS: normal S1 and S2. RRR. No M/R/G. Resp: CTA B/L. No rhonchi, rales, crackles or wheezing. Abd: soft, non-tender, non-distended. Umbilical hernia. MSK: Good ROM in BUE & BLE. No edema or rash. Neuro: CN II-XII grossly intact. Strength 5/5 in BUE & BLE. Alert and oriented x3. Objective Labs 09/02/24 05:14 09/02/24 05:14 Labs: Laboratory Results - last 24 hr 09/01/24 09/02/24 23:11 05:14 WBC 11.4 H 11.6 H RBC 3.70 L 3.39 L Hgb 8.0 L 7.3 L Hct 26.7 L 24.3 L MCV 72 L 72 L MCH 21.6 L 21.5 L MCHC 30.0 L 30.0 L RDW Std Deviation 61.3 H 60.9 H Plt Count 323 294 Neut % (Auto) 70 68 Lymph % (Auto) 20 19 [place] % (Auto) 7 9 Eos % (Auto) 2 4 Baso % (Auto) 1 1 Neut # (Auto) 7.9 H 7.9 H Lymph # (Auto) 2.2 2.1 [place] # (Auto) 0.8 1.0 H Eos # (Auto) 0.3 0.4 Baso # (Auto) 0.1 0.1 Immature Gran # (Auto) 0.05 H 0.03 H Absolute Nucleated RBC 0.00 0.00 Immature Gran % 0 0 Nucleated RBC % 0 0 PT 11.3 INR 1.0 APTT 23.9 Sodium 136 139 Potassium 3.5 3.7 Chloride 101 103 Carbon Dioxide 27.0 28.7 Anion Gap 8 7 BUN 15 14 Creatinine 0.8 0.7 Estim Creat Clear Calc 79.6 90.9 eGFR > 60 > 60 BUN/Creatinine Ratio 19 20 Glucose 194 H 115 H D Calculated Osmolality 277 279 Calcium 9.1 8.6 Corrected Calcium 9.3 9.2 Phosphorus 3.3 Magnesium 1.9 Total Bilirubin 0.3 0.3 AST 12 12 ALT 7 L < 7 L Alkaline Phosphatase 89 78 Troponin I < 0.020 Total Protein 6.1 5.3 L Albumin 3.8 3.3 L D Globulin 2.3 2.0 L Albumin/Globulin Ratio 1.7 1.7 Triglycerides 87 Cholesterol 114 L LDL Cholesterol, Calc 44 HDL Cholesterol 53 Cholesterol/HDL Ratio 2.2 L TSH 2.36 Free T4 1.22 Blood Type O Positive Antibody Screen NEGATIVE Crossmatch See Detail Blood Bank Wristband ID Yes Quality Measures Quality Measures VTE prophylaxis Advance care planning discussed with:: patient Assessment & Plan Assessment Current Active Medications: Generic Name Dose Route Start Last Admin Trade Name Freq PRN Reason Stop Dose Admin Acetaminophen 650 mg 09/02/24 01:27 Acetaminophen 325 Mg Tablet PO 10/02/24 01:26 Q6H PRN PAIN SCALE 1-3 (mild Acetaminophen 650 mg 09/02/24 01:27 Acetaminophen 325 Mg Tablet PO 10/02/24 01:26 Q6H PRN Fever >100.4 Dextrose 25 ml 09/02/24 02:15 Dextrose 50%-Water Inj 50 Ml Syringe IV 10/02/24 02:14 Q15MIN PRN BG 50-70 responsive npo pt Dextrose 50 ml 09/02/24 02:15 Dextrose 50%-Water Inj 50 Ml Syringe IV 10/02/24 02:14 Q15MIN PRN BG <50 OR BG <70 & pt unresponsive Glucagon 1 mg 09/02/24 02:15 Glucagon Inj 1 Mg Vial IM Q15MIN PRN BG <70, and no IV access Insulin Human Lispro 0 unit 09/02/24 07:30 09/02/24 07:31 Insulin Lispro (Admelog) 1 Unit/0.01 Ml Unit SC 10/02/24 07:29 Not Given ACHS [facility] Protocol Ondansetron HCl 4 mg 09/02/24 01:27 Ondansetron Inj 2 Mg/Ml Inj 2 Ml IV 10/02/24 01:26 Q6H PRN NAUSEA OR VOMITING Protocol Pantoprazole Sodium 40 mg 09/02/24 09:00 09/02/24 08:58 Pantoprazole Inj 40 Mg Vial IVP 10/02/24 08:59 40 mg BID [facility] Administration Plan 73-year-old male with past medical history of atrial fibrillation without medications, admitted for presyncope in settings of GI blood loss anemia. #Symptomatic anemia, presyncope #Acute GI blood loss anemia He has history of dark stool, was in the ED 2 weeks ago with hemoglobin 6.4, transfuse 1 unit, refused admission at that time, discharged with hemoglobin 8.6. Returning with persistent dark stool, Hgb 8.0. Patient also with complaint of ongoing dizziness and lightheadedness when rising from seated position, had presyncopal episode prior to admission. Denies head trauma or loss of consciousness. FOBT positive. Normal coag studies. Abdominal CT from last week showed no evidence of acute GI bleed. No previous endoscopy or colonoscopy. No B symptoms. Dr. Rapp was consulted by ED, recommended admission for endoscopy. Patient hemoglobin dropped from 8.0 to 7.3. Will recheck hemoglobin in the afternoon and transfuse if needed. -NPO -Ordered type and screening, and 1 unit PRBC -Tansfuse if Hgb less than 7 -Continue PROTONIX 40 mg BID -Pending GI recommendations -Follow-up afternoon hemoglobin check. -Orthostatic vitals ordered, follow-up #Atrial fibrillation, rate controlled Seen on EKG, HR 84. Currently does not take any medications. Remains in rate control. [id number] 2 indicate 2-5% CVA risk annually. HAS-BLED to indicate 4.1% risk of bleed. -Holding anticoagulation due to acute GI bleed with symptomatic anemia #Diabetes Admission GLUCOSE 194. A1c 6.7 from last week. No home glycemic control agents, no previous diagnosis of diabetes. -INSULIN sliding scale -Accu-Cheks #Possible COPD on imaging Patient had a low-dose CT scan performed as screening for lung cancer due to long history of smoking. CT scan showed imaging findings potentially concerning for COPD. Patient denies shortness of breath, cough, wheeze. Lung sounds clear to auscultation bilaterally. -Follow-up outpatient DVT prophylaxis: SCDs GI prophylaxis: Protonix twice daily Diet: N.p.o. pending endoscopy Lines: Peripheral IV Code status: DNR Plan of care discussed with attending Dr. Damon. Mansoor Aleman MD PGY-1
--- NOTE | 2024-09-02 11:52 | PC.SS ---
Initial assessment: this is 73 year old male admitted for GI bleed. Patient's sister, Alexandria Contreras assisted with providing information. Patient's home address confirmed. Patient resides at home with son, Ankit. Patient's sister identified self as the emergency contact. Patient is reported to be normally independent with ADL's. Patient has a walker at home if necessary. Patient PCP is Dr. Arias at [facility]'s office. Patient pharmacy [facility] in [place]. Plan is for the patient to return home with home health, previously with [facility] health and wish to continue with them. Family able to transport patient at discharge. D/c plan: Home health- [facility] preferred Next of kin: sisterAlexandria
--- NOTE | 2024-09-02 12:01 | PC.SS ---
Initial assessment: this is 73 year old male admitted for GI bleed. Patient's sister, Alexandria Contreras assisted with providing information. Patient's home address confirmed. Patient resides at home with son, Ankit. Patient's sister identified self as the emergency contact. Patient is reported to be normally independent with ADL's. Patient has a walker at home if necessary. Patient PCP is Dr. Arias at [facility]'s office. Patient pharmacy [facility] in [place]. Plan is for the patient to return home with home health, previously with [facility] health and wish to continue with them. Family able to transport patient at discharge. D/c plan: Home health- [facility] preferred Next of kin: sisterAlexandria
--- NOTE | 2024-09-02 14:32 | PC.SS ---
Rounding note: Plan is to d/c in 1-2 days back home.
[2024-09-02 15:45] LABS: Hematocrit 25.6 % (41.0-53.0)
[2024-09-02 16:03] LABS: Hemoglobin 7.6 g/dL (13.5-16.0)
[2024-09-02] MEDS: ACETAMINOPHEN 325 MG TABLET 650 MG PO (17:07)
--- NOTE | 2024-09-02 18:43 | PC.NURSE ---
Patient transported to endoscopy via gurney per school bus mechanicMarge. Patient is awake, alert and oriented with no signs of acute distress. Patients sister is present.
--- NOTE | 2024-09-02 19:49 | PD.IMCONS ---
HPI Data of Consult Requesting Physician: Stacia Damon MD Primary Care Provider: Physician No Primary/Family Consult Narrative Reason for consult: Hemoccult positive stool, posthemorrhagic anemia History of present illness: 73-year-old male evaluated at the request of the internal medicine team and the ER physician Patient presented with the chief complaint of feeling weak hemoglobin [place] was 8.0 and 26% which is gone down to 7.6 and 21.8 2 weeks ago he came to the ER his hemoglobin hematocrit on 08/19/2024 was 6.5 and 22.3 he was given 2 units of blood At that time EGD and colonoscopy was recommended by the ER team but he chose to follow it as an outpatient which she did not CT scan of the abdomen pelvis without contrast on 08/26/2024 showed bilateral hydrocele mild ascites otherwise negative with mild hepatocellular disease Patient was found to be Hemoccult positive rectal examination by the ER physician licensed occupational therapy assistant cc:: cc: Stacia Damon MD Meds Home Medications and Allergies Home Medications ?Medication ?Instructions ?Recorded ?Confirmed ?Type No Known Home Medications 09/02/24 09/02/24 History Allergies Allergy/AdvReac Type Severity Reaction Status Date / Time No Known Allergies Allergy Verified 09/01/24 21:36 Exam Vital Signs Temp Pulse Resp BP Pulse Ox O2 Del Method O2 Flow Rate 97.6 F 68 17 163/92 H 98 Room Air 3 09/02/24 16:00 09/02/24 19:40 09/02/24 19:40 09/02/24 19:40 09/02/24 19:40 09/02/24 16:00 09/02/24 19:40 Constitutional Comments: Hard of hearing alert and oriented Routine Respiratory Exam Comments: Normal to auscultation Routine Abdominal Exam Comments: Soft nontender Results Labs 09/02/24 15:31 09/02/24 05:14 Labs: Short CBC 09/01/24 09/02/24 09/02/24 Range/Units 23:11 05:14 15:31 WBC 11.4 H 11.6 H (3.8-10.6) Thou/mm3 Hgb 8.0 L 7.3 L 7.6 L (13.5-16.0) g/dL Hct 26.7 L 24.3 L 25.6 L (41.0-53.0) % Plt Count 323 294 (140-440) Thou/mm3 BMP 09/01/24 09/02/24 23:11 05:14 Sodium 136 139 Potassium 3.5 3.7 Chloride 101 103 Carbon Dioxide 27.0 28.7 BUN 15 14 Creatinine 0.8 0.7 Glucose 194 H 115 H D Calcium 9.1 8.6 Cardiac Enzymes 09/01/24 Range/Units 23:11 Troponin I < 0.020 (0.0-0.045) ng/mL Liver Function 09/01/24 09/02/24 Range/Units 23:11 05:14 Total Bilirubin 0.3 0.3 (0.3-1.2) mg/dL AST 12 12 (0-34) U/L ALT 7 L < 7 L (10-49) U/L Alkaline Phosphatase 89 78 (46-116) U/L Albumin 3.8 3.3 L D (3.4-4.8) gm/dL Assessment and Plan Additional Assessment & Plan Additional Plan: # Acute posthemorrhagic anemia # Abnormal weight loss # Dysphagia Plan Consent obtained from the patient and the daughter in the room for fiberoptic esophagogastroduodenoscopy with possible guidewire savory dilatation possible biopsies under intravenous moderate sedation In case the EGD is negative we will consider doing a fibrotic colonoscopy prior to discharge Thank you for the opportunity to participate in care of this patient
--- NOTE | 2024-09-02 20:17 | SUR.PHASEI ---
2017: report received from OR via [employer]. received report from SONY Hernandez. pt sleepy but arousable when called his name. no s/s of pain or discomfort. no s/s of resp. distress or discomfort.
--- NOTE | 2024-09-02 20:55 | SUR.PHASEI ---
2054: pt transferred back to room via gurney. pt alert and oriented. son at the bedside. no s/s of pain or discomfort. no s/s of resp. distress or discomfort.
--- NOTE | 2024-09-02 21:00 | PC.NURSE ---
PT BACK FROM ENDO, AO3. SON AT BEDSIDE. NO SIGNS OF DISTRESS.
[2024-09-03] VITALS (11 sets, daily range): BP systolic 133–175; BP diastolic 68–86; PULSE 59–97; RESP 14–22; TEMP 36.1–36.6; O2SAT 0–100; BMI 22.4
[2024-09-03 05:41] LABS: Basophils # (Auto) 0.1 Thou/mm3 (0.0-0.2); Basophils % (Auto) 1 % (0-2.5); Eosinophils # (Auto) 0.3 Thou/mm3 (0.0-0.5); Eosinophils % (Auto) 3 % (0-10); Immature Granulocytes % (Auto) 0 % (0-0); Immature Granulocytes Auto 0.02 Thou/mm3 (0.00-0.00); Lymphocytes # (Auto) 2.4 Thou/mm3 (1.0-4.8); Lymphocytes % (Auto) 22 % (10-50); Mean Corpuscular HGB Conc 29.6 g/dl (31.0-37.0); Mean Corpuscular Hemoglobin 21.4 pg (25.0-35.0); Mean Corpuscular Volume 72 fL (80-100); Monocytes # (Auto) 0.9 Thou/mm3 (0.0-0.8); Monocytes % (Auto) 8 % (0-12); Neutrophils # (Auto) 7.4 Thou/mm3 (1.8-7.7); Neutrophils % (Auto) 67 % (37-80); Nucleated Red Blood Cell % 0 /100 WBC (0); Platelet Count 319 Thou/mm3 (140-440); RDW Standard Deviation 60.3 fL (35.1-43.9); Red Blood Count 3.32 Miln/mm3 (4.50-5.90); White Blood Count 11.1 Thou/mm3 (3.8-10.6)
[2024-09-03 05:42] LABS: Hemoglobin 7.1 g/dL (13.5-16.0)
[2024-09-03 06:20] LABS: Alanine Aminotransferase < 7 U/L (10-49); Albumin, Serum 3.2 gm/dL (3.4-4.8); Albumin/Globulin Ratio 1.6 (1.2-2.2); Alkaline Phosphatase 81 U/L (46-116); Anion Gap 5 (7-16); Aspartate Amino Transferase 12 U/L (0-34); BUN/Creatinine Ratio 16 Ratio (12-20); Bilirubin,Total 0.3 mg/dL (0.3-1.2); Blood Urea Nitrogen 13 mg/dL (9-23); Calcium 8.6 mg/dL (8.3-10.6); Calcium (Corrected) 9.2 mg/dL (8.5-10.1); Carbon Dioxide 28.2 mMol/L (20.0-31.0); Chloride 107 mMol/L (98-107); Creatinine (Component) 0.8 mg/dL (0.6-1.3); Estimated Creatinine Clearance 79.6 mL/min (>60); Glucose 122 mg/dL (74-106); Osmolality,Calculated 280 (275-295); Phosphorous 3.6 mg/dL (2.4-5.1); Potassium 3.3 mMol/L (3.4-5.1); Sodium 140 mMol/L (136-145); Total Protein 5.2 gm/dL (5.7-8.2); eGFR > 60 See Note
[2024-09-03] MEDS: PANTOPRAZOLE INJ 40 MG VIAL IVP ×2 (08:12→20:31)
[2024-09-03] MEDS: NICOTINE PATCH 21 MG/24 HR PATCH.TD24 TOP (08:12)
[2024-09-03] MEDS: POTASSIUM CHLORIDE 10% 20 MEQ/15 ML UDC 40 MEQ PO (08:16)
--- NOTE | 2024-09-03 11:12 | ESPR_ITS ---
<Statement entered by Stacia Damon MD - 09/08/24 04:07> I reviewed above note and agree with findings and plans. I have also personally examined the patient with medicine team and went over assessment and plan with medical team including photography intern and resident physician. Documentation for date of: 09/03/24 Subjective Subjective Interval history: Patient was seen and examined at the bedside. Patient was not appropriately responding to questions asked. He appeared to be mildly delirious in answering questions. Morning vitals showed blood pressure mildly elevated. Patient was afebrile and saturating well on room air. No acute overnight events were reported. Hemoglobin down trended as 7.1. WBC downtrending. Platelets stable. Chemistry panel showed mild hypokalemia which was repleted. 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 Gastritis characterized by erythema. Distal esophageal mass is circumferential. Polyp in proximal esophagus. Biopsies were taken. Recommendations were to have consult for oncology, Dr. Sandy. Currently transfusing 1 unit PRBC and will follow-up with H&H. Continuing current management with Protonix IV twice daily. All labs and orders were reviewed. Exam Vital Signs Temp Pulse Resp BP Pulse Ox O2 Del Method O2 Flow Rate 97.5 F 65 18 158/85 H 99 Room Air 3 09/03/24 11:09/03/24 11:09/03/24 11:09/03/24 11:09/03/24 11:09/03/24 11:09/02/24 20:05 Narrative Exam Gen: Well-developed and well-nourished. Minimally cooperative with exam. HEENT: NCAT, PERRLA, EOMI, MMM, anicteric conjunctivae. CVS: normal S1 and S2. RRR. No M/R/G. Resp: CTA B/L. No rhonchi, rales, crackles or wheezing. Abd: soft, non-tender, non-distended. Umbilical hernia. MSK: Good ROM in BUE & BLE. No edema or rash. Neuro: CN II-XII grossly intact. Strength 5/5 in BUE & BLE. Alert however not oriented to time and place. Objective Labs 09/03/24 04:54 09/03/24 04:54 Labs: Laboratory Results - last 24 hr 02/09/02/24 09/03/24 23:11 15:31 04:54 WBC 11.1 H RBC 3.32 L Hgb 7.6 L 7.1 L Hct 25.6 L 24.0 L MCV 72 L MCH 21.4 L MCHC 29.6 L RDW Std Deviation 60.3 H Plt Count 319 Neut % (Auto) 67 Lymph % (Auto) 22 [place] % (Auto) 8 Eos % (Auto) 3 Baso % (Auto) 1 Neut # (Auto) 7.4 Lymph # (Auto) 2.4 [place] # (Auto) 0.9 H Eos # (Auto) 0.3 Baso # (Auto) 0.1 Immature Gran # (Auto) 0.02 H Absolute Nucleated RBC 0.00 Immature Gran % 0 Nucleated RBC % 0 Sodium 140 Potassium 3.3 L Chloride 107 Carbon Dioxide 28.2 Anion Gap 5 L BUN 13 Creatinine 0.8 Estim Creat Clear Calc 79.6 eGFR > 60 BUN/Creatinine Ratio 16 Glucose 122 H Calculated Osmolality 280 Calcium 8.6 Corrected Calcium 9.2 Phosphorus 3.6 Magnesium 2.0 Total Bilirubin 0.3 AST 12 ALT < 7 L Alkaline Phosphatase 81 Total Protein 5.2 L Albumin 3.2 L Globulin 2.0 L Albumin/Globulin Ratio 1.6 Blood Type O Positive Antibody Screen NEGATIVE Crossmatch See Detail Blood Bank Wristband ID Yes Quality Measures Quality Measures VTE prophylaxis (SCDs) Advance care planning discussed with:: other Assessment & Plan Assessment Current Active Medications: Generic Name Dose Route Start Last Admin Trade Name Freq PRN Reason Stop Dose Admin Acetaminophen 650 mg 09/02/24 01:27 09/02/24 17:07 Acetaminophen 325 Mg Tablet PO 10/02/24 01:26 650 mg Q6H PRN Administration PAIN SCALE 1-3 (mild Acetaminophen 650 mg 09/02/24 01:27 Acetaminophen 325 Mg Tablet PO 10/02/24 01:26 Q6H PRN Fever >100.4 Dextrose 25 ml 09/02/24 02:15 Dextrose 50%-Water Inj 50 Ml Syringe IV 10/02/24 02:14 Q15MIN PRN BG 50-70 responsive npo pt Dextrose 50 ml 09/02/24 02:15 Dextrose 50%-Water Inj 50 Ml Syringe IV 10/02/24 02:14 Q15MIN PRN BG <50 OR BG <70 & pt unresponsive Glucagon 1 mg 09/02/24 02:15 Glucagon Inj 1 Mg Vial IM Q15MIN PRN BG <70, and no IV access Insulin Human Lispro 0 unit 09/02/24 07:30 09/03/24 07:59 Insulin Lispro (Admelog) 1 Unit/0.01 Ml Unit SC 10/02/24 07:29 Not Given ACHS ANTONI Protocol Nicotine 21 mg 09/03/24 09:00 09/03/24 08:12 Nicotine Patch 21 Mg/24 Hr Patch.Td24 TOP 10/03/24 08:59 21 mg QDAY ANTONI Administration Ondansetron HCl 4 mg 09/02/24 01:27 Ondansetron Inj 2 Mg/Ml Inj 2 Ml IV 10/02/24 01:26 Q6H PRN NAUSEA OR VOMITING Protocol Pantoprazole Sodium 40 mg 09/02/24 09:00 09/03/24 08:12 Pantoprazole Inj 40 Mg Vial IVP 10/02/24 08:59 40 mg BID ANTONI Administration Plan This 73-year-old male with past medical history of atrial fibrillation without medications, admitted for presyncope in settings of GI blood loss anemia. 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 Returning with persistent dark stool, Hgb 8.0. Patient also with complaint of ongoing dizziness and lightheadedness when rising from seated position, had presyncopal episode prior to admission. Denies head trauma or loss of consciousness. FOBT positive. Normal coag studies. Abdominal CT from last week showed no evidence of acute GI bleed. 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 Gastritis characterized by erythema. Distal esophageal mass is circumferential. Polyp in proximal esophagus. Biopsies were taken. ?Orthostatic vitals were negative ? On 09/03/24, hemoglobin down trended to 7.1, transfusing 1 unit Plan: ? Transfusing 1 unit PRBC and post H&H follow-up ? Clear liquid diet ? Transfuse hemoglobin if PRBC drops below 7 ? Continue PROTONIX 40 mg BID ? GI following the case ? Oncology consulted for further recommendations, pathology pending ? Follow-up on CBC ? Replete electrolytes as necessary #Atrial fibrillation, rate controlled Seen on EKG, HR 84. Currently does not take any medications. Remains in rate control. [id number] 2 indicate 2-5% CVA risk annually. HAS-BLED to indicate 4.1% risk of bleed. Plan: -Holding anticoagulation due to acute GI bleed with symptomatic anemia #Type II diabetes Admission GLUCOSE 194. A1c 6.7 from last week. No home glycemic control agents, no previous diagnosis of diabetes. Plan: -INSULIN sliding scale with hypoglycemia protocol -Accu-Cheks #Possible COPD on imaging Patient had a low-dose CT scan performed as screening for lung cancer due to long history of smoking. CT scan showed imaging findings potentially concerning for COPD. Patient denies shortness of breath, cough, wheeze. Lung sounds clear to auscultation bilaterally. Plan: -Follow-up outpatient Health maintenance: DVT prophylaxis: SCDs GI prophylaxis: Protonix twice daily Diet: N.p.o. pending endoscopy Lines: Peripheral IV Code status: DNR Disposition: Patient is currently being transfused 1 unit of PRBC for drop in hemoglobin. Post H&H follow-up. Patient was found to have esophageal tumor and distal esophagus. Oncology consulted. Patient was seen and discussed with attending physician, Dr.Obad Dr. Tracee MD, PGY 2
[2024-09-03] MEDS: INSULIN LISPRO (AdmeLOG) 1 UNIT/0.01 ML UNIT SC (12:21)
[2024-09-03] MEDS: ACETAMINOPHEN 325 MG TABLET 650 MG PO (16:48)
[2024-09-03 17:02] LABS: Hematocrit 29.4 % (41.0-53.0); Hemoglobin 9.2 g/dL (13.5-16.0)
[2024-09-03] MEDS: SIMETHICONE 80 MG CHEW PO (17:25)
--- NOTE | 2024-09-03 22:40 | ESPR_ITS ---
Documentation for date of: 09/03/24 Subjective Subjective Interval history: Patient evaluated Family in the room Patient's son were care he was there Biopsies are on a stat basis of the distal esophageal tumor most likely malignant squamous versus adenocarcinoma Exam Vital Signs Temp Pulse Resp BP Pulse Ox O2 Del Method O2 Flow Rate 97.6 F 82 22 H 138/74 H 98 Room Air 0 09/03/24 20:00 09/03/24 20:00 09/03/24 20:00 09/03/24 20:00 09/03/24 20:00 09/03/24 20:00 09/03/24 16:00 Objective Labs 09/03/24 16:05 09/03/24 04:54 Labs: Laboratory Results - last 24 hr 09/01/24 09/03/24 09/03/24 23:11 04:54 16:05 WBC 11.1 H RBC 3.32 L Hgb 7.1 L 9.2 L D Hct 24.0 L 29.4 L MCV 72 L MCH 21.4 L MCHC 29.6 L RDW Std Deviation 60.3 H Plt Count 319 Neut % (Auto) 67 Lymph % (Auto) 22 [place] % (Auto) 8 Eos % (Auto) 3 Baso % (Auto) 1 Neut # (Auto) 7.4 Lymph # (Auto) 2.4 [place] # (Auto) 0.9 H Eos # (Auto) 0.3 Baso # (Auto) 0.1 Immature Gran # (Auto) 0.02 H Absolute Nucleated RBC 0.00 Immature Gran % 0 Nucleated RBC % 0 Sodium 140 Potassium 3.3 L Chloride 107 Carbon Dioxide 28.2 Anion Gap 5 L BUN 13 Creatinine 0.8 Estim Creat Clear Calc 79.6 eGFR > 60 BUN/Creatinine Ratio 16 Glucose 122 H Calculated Osmolality 280 Calcium 8.6 Corrected Calcium 9.2 Phosphorus 3.6 Magnesium 2.0 Total Bilirubin 0.3 AST 12 ALT < 7 L Alkaline Phosphatase 81 Total Protein 5.2 L Albumin 3.2 L Globulin 2.0 L Albumin/Globulin Ratio 1.6 Blood Type O Positive Antibody Screen NEGATIVE Crossmatch See Detail Blood Bank Wristband ID Yes Impressions Impression: 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 Oncology consult Continue current management Assessment & Plan A&P Narrative # Acute posthemorrhagic anemia # Abnormal weight loss # Dysphagia Plan Consent obtained from the patient and the daughter in the room for fiberoptic esophagogastroduodenoscopy with possible guidewire savory dilatation possible biopsies under intravenous moderate sedation In case the EGD is negative we will consider doing a fibrotic colonoscopy prior to discharge Thank you for the opportunity to participate in care of this patient Time Spent With Patient Time: Total time spent is greater than 50% in coordination of care (as documented) at patient's floor/unit and/or counseling patient:
[2024-09-04] VITALS (7 sets, daily range): BP systolic 107–167; BP diastolic 57–81; PULSE 65–85; RESP 17–27; TEMP 36.1–36.8; O2SAT 97–100
[2024-09-04] MEDS: ACETAMINOPHEN 325 MG TABLET 650 MG PO ×2 (00:04→19:16)
[2024-09-04 05:58] LABS: Alanine Aminotransferase < 7 U/L (10-49); Albumin, Serum 3.3 gm/dL (3.4-4.8); Albumin/Globulin Ratio 1.7 (1.2-2.2); Alkaline Phosphatase 78 U/L (46-116); Anion Gap 7 (7-16); Aspartate Amino Transferase 11 U/L (0-34); BUN/Creatinine Ratio 16 Ratio (12-20); Bilirubin,Total 0.4 mg/dL (0.3-1.2); Blood Urea Nitrogen 13 mg/dL (9-23); Calcium 8.6 mg/dL (8.3-10.6); Calcium (Corrected) 9.2 mg/dL (8.5-10.1); Carbon Dioxide 25.9 mMol/L (20.0-31.0); Chloride 106 mMol/L (98-107); Creatinine (Component) 0.8 mg/dL (0.6-1.3); Estimated Creatinine Clearance 77.9 mL/min (>60); Globulin 1.9 gm/dL (2.3-3.5); Glucose 87 mg/dL (74-106); Magnesium 1.8 mg/dL (1.6-2.6); Osmolality,Calculated 276 (275-295); Phosphorous 3.1 mg/dL (2.4-5.1); Potassium 3.1 mMol/L (3.4-5.1); Sodium 139 mMol/L (136-145); Total Protein 5.2 gm/dL (5.7-8.2); eGFR > 60 See Note
[2024-09-04 06:03] LABS: Basophils # (Auto) 0.1 Thou/mm3 (0.0-0.2); Basophils % (Auto) 1 % (0-2.5); Eosinophils # (Auto) 0.4 Thou/mm3 (0.0-0.5); Eosinophils % (Auto) 3 % (0-10); Immature Granulocytes % (Auto) 0 % (0-0); Immature Granulocytes Auto 0.03 Thou/mm3 (0.00-0.00); Lymphocytes # (Auto) 2.1 Thou/mm3 (1.0-4.8); Lymphocytes % (Auto) 18 % (10-50); Mean Corpuscular HGB Conc 30.4 g/dl (31.0-37.0); Mean Corpuscular Hemoglobin 22.6 pg (25.0-35.0); Mean Corpuscular Volume 75 fL (80-100); Monocytes % (Auto) 9 % (0-12); Neutrophils % (Auto) 69 % (37-80); Nucleated Red Blood Cell % 0 /100 WBC (0); Platelet Count 293 Thou/mm3 (140-440); RDW Standard Deviation 63.6 fL (35.1-43.9); Red Blood Count 3.76 Miln/mm3 (4.50-5.90); White Blood Count 11.6 Thou/mm3 (3.8-10.6)
[2024-09-04 06:23] LABS: Hemoglobin 8.5 g/dL (13.5-16.0)
[2024-09-04] MEDS: NICOTINE PATCH 21 MG/24 HR PATCH.TD24 TOP (07:59)
[2024-09-04] MEDS: PANTOPRAZOLE INJ 40 MG VIAL IVP ×2 (08:08→20:25)
[2024-09-04] MEDS: POTASSIUM CHLORIDE 20 mEq TABCR 40 MEQ PO (09:23)
--- NOTE | 2024-09-04 15:03 | PD.IMPROG ---
Documentation for date of: 09/04/24 Subjective Subjective Interval history: Patient evaluated Hemoglobin hematocrit 8.5 and 28.0 Exam Vital Signs Temp Pulse Resp BP Pulse Ox O2 Del Method O2 Flow Rate 97.4 F 65 17 167/65 H 100 Room Air 0 09/04/24 12:00 09/04/24 12:00 09/04/24 12:00 09/04/24 12:00 09/04/24 12:00 09/04/24 12:00 09/03/24 16:00 Objective Labs 09/04/24 04:10 09/04/24 04:10 Labs: Laboratory Results - last 24 hr 09/03/24 09/04/24 16:05 04:10 WBC 11.6 H RBC 3.76 L Hgb 9.2 L D 8.5 L Hct 29.4 L 28.0 L MCV 75 L MCH 22.6 L MCHC 30.4 L RDW Std Deviation 63.6 H Plt Count 293 Neut % (Auto) 69 Lymph % (Auto) 18 [place] % (Auto) 9 Eos % (Auto) 3 Baso % (Auto) 1 Neut # (Auto) 8.0 H Lymph # (Auto) 2.1 [place] # (Auto) 1.0 H Eos # (Auto) 0.4 Baso # (Auto) 0.1 Immature Gran # (Auto) 0.03 H Absolute Nucleated RBC 0.00 Immature Gran % 0 Nucleated RBC % 0 Sodium 139 Potassium 3.1 L Chloride 106 Carbon Dioxide 25.9 Anion Gap 7 BUN 13 Creatinine 0.8 Estim Creat Clear Calc 77.9 eGFR > 60 BUN/Creatinine Ratio 16 Glucose 87 Calculated Osmolality 276 Calcium 8.6 Corrected Calcium 9.2 Phosphorus 3.1 Magnesium 1.8 Total Bilirubin 0.4 AST 11 ALT < 7 L Alkaline Phosphatase 78 Total Protein 5.2 L Albumin 3.3 L Globulin 1.9 L Albumin/Globulin Ratio 1.7 Impressions Impression: 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 Sandy to evaluate the patient in the morning and have a outpatient plan If patient continues have dysphagia he should have a placement of a gastrostomy tube which will depend upon Dr. Sandy's decision and the patient's decision Assessment & Plan A&P Narrative # Acute posthemorrhagic anemia # Abnormal weight loss # Dysphagia Plan Consent obtained from the patient and the daughter in the room for fiberoptic esophagogastroduodenoscopy with possible guidewire savory dilatation possible biopsies under intravenous moderate sedation In case the EGD is negative we will consider doing a fibrotic colonoscopy prior to discharge Thank you for the opportunity to participate in care of this patient Time Spent With Patient Time: Total time spent is greater than 50% in coordination of care (as documented) at patient's floor/unit and/or counseling patient:
[2024-09-04] MEDS: INSULIN LISPRO (AdmeLOG) 1 UNIT/0.01 ML UNIT SC ×2 (16:30→20:26)
--- NOTE | 2024-09-04 17:16 | ESPR_ITS ---
<Statement entered by Stacia Damon MD - 09/10/24 21:50> I reviewed above note and agree with findings and plans. I have also personally examined the patient with medicine team and went over assessment and plan with medical team including internet application developer and resident physician. Documentation for date of: 09/04/24 Subjective Subjective Interval history: No acute overnight events reported. Patient seen and examined at bedside this morning patient. Denies any chest pain or abdominal pain. Patient denies shortness of breath or dizziness currently saturating above 95% on room air. Patient states he would like to go home he is alert oriented x 3 however patient is very hard of hearing. Per GI recommendation patient is recommended to be seen by oncologist in light of new suspicion for esophageal malignancy findings on EGD. Patient has no complaints. Exam Vital Signs Temp Pulse Resp BP Pulse Ox O2 Del Method O2 Flow Rate 98.2 F 85 18 155/76 H 98 Room Air 0 09/04/24 16:00 09/04/24 16:00 09/04/24 16:00 09/04/24 16:00 09/04/24 16:00 09/04/24 16:00 09/03/24 16:00 Narrative Exam GENERAL: A&Ox3 . Awake, Not in acute distress NEURO: no focal neurological deficits HEENT: Atraumatic, Normocephalic. mucous membranes moist. Eyes open, symmetrical, & clear HEART: Normal Heart Sounds LUNGS: Clear to auscultation with no wheezing or crackles. ABDOMEN: soft, non-distended, non-tender, bowel sounds heard, no guarding or rebound tenderness SKIN: No Rash or ecchymoses EXTREMITIES: No edema, tenderness, able to move all 4 extremities, pedal pulses palpated Objective Labs 09/04/24 04:10 09/04/24 04:10 Labs: Laboratory Results - last 24 hr 09/04/24 04:10 WBC 11.6 H RBC 3.76 L Hgb 8.5 L Hct 28.0 L MCV 75 L MCH 22.6 L MCHC 30.4 L RDW Std Deviation 63.6 H Plt Count 293 Neut % (Auto) 69 Lymph % (Auto) 18 [place] % (Auto) 9 Eos % (Auto) 3 Baso % (Auto) 1 Neut # (Auto) 8.0 H Lymph # (Auto) 2.1 [place] # (Auto) 1.0 H Eos # (Auto) 0.4 Baso # (Auto) 0.1 Immature Gran # (Auto) 0.03 H Absolute Nucleated RBC 0.00 Immature Gran % 0 Nucleated RBC % 0 Sodium 139 Potassium 3.1 L Chloride 106 Carbon Dioxide 25.9 Anion Gap 7 BUN 13 Creatinine 0.8 Estim Creat Clear Calc 77.9 eGFR > 60 BUN/Creatinine Ratio 16 Glucose 87 Calculated Osmolality 276 Calcium 8.6 Corrected Calcium 9.2 Phosphorus 3.1 Magnesium 1.8 Total Bilirubin 0.4 AST 11 ALT < 7 L Alkaline Phosphatase 78 Total Protein 5.2 L Albumin 3.3 L Globulin 1.9 L Albumin/Globulin Ratio 1.7 Quality Measures Quality Measures VTE prophylaxis (SCDs) Advance care planning discussed with:: other Assessment & Plan Assessment Current Active Medications: Generic Name Dose Route Start Last Admin Trade Name Freq PRN Reason Stop Dose Admin Acetaminophen 650 mg 09/02/24 01:27 09/04/24 00:04 Acetaminophen 325 Mg Tablet PO 10/02/24 01:26 650 mg Q6H PRN Administration PAIN SCALE 1-3 (mild Acetaminophen 650 mg 09/02/24 01:27 Acetaminophen 325 Mg Tablet PO 10/02/24 01:26 Q6H PRN Fever >100.4 Dextrose 25 ml 09/02/24 02:15 Dextrose 50%-Water Inj 50 Ml Syringe IV 10/02/24 02:14 Q15MIN PRN BG 50-70 responsive npo pt Dextrose 50 ml 09/02/24 02:15 Dextrose 50%-Water Inj 50 Ml Syringe IV 10/02/24 02:14 Q15MIN PRN BG <50 OR BG <70 & pt unresponsive Glucagon 1 mg 09/02/24 02:15 Glucagon Inj 1 Mg Vial IM Q15MIN PRN BG <70, and no IV access Insulin Human Lispro 0 unit 09/02/24 07:30 09/04/24 16:30 Insulin Lispro (Admelog) 1 Unit/0.01 Ml Unit SC 10/02/24 07:29 1 unit ACHS ANTONI Administration Protocol Nicotine 21 mg 09/03/24 09:00 09/04/24 07:59 Nicotine Patch 21 Mg/24 Hr Patch.Td24 TOP 10/03/24 08:59 21 mg QDAY ANTONI Administration Ondansetron HCl 4 mg 09/02/24 01:27 Ondansetron Inj 2 Mg/Ml Inj 2 Ml IV 10/02/24 01:26 Q6H PRN NAUSEA OR VOMITING Protocol Pantoprazole Sodium 40 mg 09/02/24 09:00 09/04/24 08:08 Pantoprazole Inj 40 Mg Vial IVP 10/02/24 08:59 40 mg BID ANTONI Administration Simethicone 80 mg 09/03/24 16:59 09/03/24 17:25 Simethicone 80 Mg Chew PO 10/03/24 16:58 80 mg QID PRN Administration GAS Plan Mr. Martinez is a 73-year-old male with past medical history of atrial fibrillation without medications, admitted for presyncope in settings of GI blood loss anemia. 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 Returning with persistent dark stool, Hgb 8.0. -Patient also with complaint of ongoing dizziness and lightheadedness when rising from seated position, had presyncopal episode prior to admission. Denies head trauma or loss of consciousness. -FOBT positive. Normal coag studies. -Abdominal CT from last week showed no evidence of acute GI bleed. 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 Gastritis characterized by erythema. Distal esophageal mass is circumferential. Polyp in proximal esophagus. Biopsies were taken. -Orthostatic vitals were negative -On 09/03/24, hemoglobin down trended to 7.1, transfusing 1 unit Plan: -Clear liquid diet -Monitor daily CBC, transfuse hemoglobin if PRBC drops below 7 -Continue PROTONIX 40 mg BID -GI following the case -Oncology consulted for further recommendations, pathology pending -Replete electrolytes as necessary #Atrial fibrillation, rate controlled -Seen on EKG, HR 84. Currently does not take any medications. Remains in rate control. -[id number] 2 indicate 2-5% CVA risk annually. -HAS-BLED to indicate 4.1% risk of bleed. Plan: -Holding anticoagulation due to acute GI bleed with symptomatic anemia #Type II diabetes- new diagnosis -Admission GLUCOSE 194. A1c 6.7 from last week. No home glycemic control agents, no previous diagnosis of diabetes. Plan: -INSULIN sliding scale with hypoglycemia protocol -Accu-[place] #Possible COPD on imaging -Patient had a low-dose CT scan performed as screening for lung cancer due to long history of smoking. -CT scan showed imaging findings potentially concerning for COPD. -Patient denies shortness of breath, cough, wheeze. Lung sounds clear to auscultation bilaterally. Plan: -Follow-up outpatient Health maintenance: DVT prophylaxis: SCDs GI prophylaxis: Protonix twice daily Diet: dysphagia 1-pureed Lines: Peripheral IV Code status: DNR Disposition: Patient was found to have esophageal tumor and distal esophagus. Oncology consulted.
[2024-09-05] VITALS (7 sets, daily range): BP systolic 118–150; BP diastolic 58–84; PULSE 65–80; RESP 16–20; TEMP 36.2–36.8; O2SAT 95–99; BMI 23.6
[2024-09-05 04:44] LABS: Basophils # (Auto) 0.1 Thou/mm3 (0.0-0.2); Basophils % (Auto) 1 % (0-2.5); Eosinophils # (Auto) 0.4 Thou/mm3 (0.0-0.5); Eosinophils % (Auto) 3 % (0-10); Hematocrit 25.4 % (41.0-53.0); Immature Granulocytes % (Auto) 0 % (0-0); Immature Granulocytes Auto 0.05 Thou/mm3 (0.00-0.00); Lymphocytes # (Auto) 2.4 Thou/mm3 (1.0-4.8); Lymphocytes % (Auto) 21 % (10-50); Mean Corpuscular HGB Conc 30.3 g/dl (31.0-37.0); Mean Corpuscular Hemoglobin 22.4 pg (25.0-35.0); Mean Corpuscular Volume 74 fL (80-100); Monocytes # (Auto) 0.9 Thou/mm3 (0.0-0.8); Monocytes % (Auto) 8 % (0-12); Neutrophils # (Auto) 7.6 Thou/mm3 (1.8-7.7); Neutrophils % (Auto) 66 % (37-80); Nucleated Red Blood Cell % 0 /100 WBC (0); Platelet Count 274 Thou/mm3 (140-440); RDW Standard Deviation 63.4 fL (35.1-43.9); Red Blood Count 3.44 Miln/mm3 (4.50-5.90); White Blood Count 11.5 Thou/mm3 (3.8-10.6)
[2024-09-05 04:46] LABS: Hemoglobin 7.7 g/dL (13.5-16.0)
[2024-09-05 05:16] LABS: Alanine Aminotransferase < 7 U/L (10-49); Albumin/Globulin Ratio 1.6 (1.2-2.2); Alkaline Phosphatase 72 U/L (46-116); Anion Gap 7 (7-16); Aspartate Amino Transferase 11 U/L (0-34); BUN/Creatinine Ratio 18 Ratio (12-20); Bilirubin,Total 0.3 mg/dL (0.3-1.2); Blood Urea Nitrogen 14 mg/dL (9-23); Calcium 8.3 mg/dL (8.3-10.6); Calcium (Corrected) 9.1 mg/dL (8.5-10.1); Carbon Dioxide 25.4 mMol/L (20.0-31.0); Chloride 108 mMol/L (98-107); Creatinine (Component) 0.8 mg/dL (0.6-1.3); Estimated Creatinine Clearance 79.6 mL/min (>60); Globulin 1.9 gm/dL (2.3-3.5); Glucose 100 mg/dL (74-106); Magnesium 1.8 mg/dL (1.6-2.6); Osmolality,Calculated 279 (275-295); Phosphorous 2.9 mg/dL (2.4-5.1); Potassium 3.6 mMol/L (3.4-5.1); Sodium 140 mMol/L (136-145); Total Protein 4.9 gm/dL (5.7-8.2); eGFR > 60 See Note
--- NOTE | 2024-09-05 08:19 | PD.ONCCONS ---
HPI Data of Consult Requesting Physician: Stacia Damon MD Primary Care Provider: Physician No Primary/Family Consult Narrative Reason for consult: Suspected esophageal malignancy History of present illness: Patient is a 73-year-old gentleman admitted with history of low hemoglobin of 6.5 which required 2 units of blood and admitted with 7.6 hemoglobin and feeling weak. Patient had been scheduled for prior EGD colonoscopy but did not follow through. Abdominal pelvis CT on 08/26/2024 revealed hepatocellular disease mild ascites and suspicions for bilateral hydroceles. Underwent upper endoscopy performed by Dr. Rapp on 08/25/2024. This revealed large ulcerating mass with bleeding on lower third of the esophagus with mass partially obstructing and circumferential. Biopsy pending. Additional mass with appearance of polyp in proximal esophagus with biopsy performed. Patient receiving insulin sliding scale for type 2 diabetes which is a new diagnosis and being observed for A-fib with rate controlled. Patient now referred for oncological consultation. cc:: cc: Stacia Damon MD Past Medical History Family History OTHER FAMILY HX: No malignancy in family Social History SOCIAL: Current heavy smoker history of previous alcohol use. No illicit med use. Past Medical History Comments PMH COMMENT: History of A-fib not on any meds, deafness, history of heavy smoking history of left pinky partial amputation Meds Home Medications and Allergies Allergies Allergy/AdvReac Type Severity Reaction Status Date / Time No Known Allergies Allergy Verified 09/02/24 20:46 Exam Vital Signs Temp Pulse Resp BP Pulse Ox O2 Del Method O2 Flow Rate 98.0 F 75 18 144/66 H 95 Room Air 0 09/05/24 08:00 09/05/24 08:00 09/05/24 08:00 09/05/24 08:00 09/05/24 08:00 09/05/24 08:00 09/05/24 08:00 Results Labs 09/05/24 04:03 09/05/24 04:03 Labs: Short CBC 09/05/24 Range/Units 04:03 WBC 11.5 H (3.8-10.6) Thou/mm3 Hgb 7.7 L (13.5-16.0) g/dL Hct 25.4 L (41.0-53.0) % Plt Count 274 (140-440) Thou/mm3 BMP 09/05/24 04:03 Sodium 140 Potassium 3.6 D Chloride 108 H Carbon Dioxide 25.4 BUN 14 Creatinine 0.8 Glucose 100 Calcium 8.3 Liver Function 09/05/24 Range/Units 04:03 Total Bilirubin 0.3 (0.3-1.2) mg/dL AST 11 (0-34) U/L ALT < 7 L (10-49) U/L Alkaline Phosphatase 72 (46-116) U/L Albumin 3.0 L (3.4-4.8) gm/dL Assessment and Plan Additional Assessment & Plan Additional Plan: 1. Likely malignancy involving the distal esophagus biopsy pending. 2 Multiple comorbidities, including A-fib diabetes COPD deafness 3. Spoke with Sister Alexandria Contreras about follow-up at the cancer treatment center next week. 4. Thank you for allowing me to evaluate this patient.
[2024-09-05] MEDS: NICOTINE PATCH 21 MG/24 HR PATCH.TD24 TOP (08:35)
[2024-09-05] MEDS: PANTOPRAZOLE INJ 40 MG VIAL IVP ×2 (08:38→23:16)
--- NOTE | 2024-09-05 11:11 | ESPR_ITS ---
<Statement entered by Stacia Damon MD - 09/10/24 21:52> I reviewed above note and agree with findings and plans. I have also personally examined the patient with medicine team and went over assessment and plan with medical team including validation intern and resident physician. <Statement entered by Obey Easley MD - 09/05/24 18:17> Patient was seen and examined at the bedside. Labs revealed hemoglobin around 7.7. White count stable. Patient was doing well. Will keep an eye on patient's hemoglobin today and continue with Protonix and clear liquid diet. Oncology, Dr. Sandy stated that he will see the patient outpatient once pathology report is out. All labs and orders were reviewed. I saw and examined the patient, and I agree with current management stated by Dr Tk MD,PGY1. Plan of care was discussed with the attending physician and resident physician. Disclaimer: Despite multiple revisions, due to the dictation software being used, the document bellow may not be free of grammatical errors including phonetic/typographic errors. However, this does not deter from our commitment to providing health care in the patient's best interest in mind. Dr. Tracee MD, PGY 2 Documentation for date of: 09/05/24 Subjective Subjective Interval history: No acute overnight events reported. Patient seen and examined at bedside this morning. Patient's sister and son are at bedside stated patient had a visit with the radiation oncologist Dr. Sandy who suggested patient to be seen in the cancer center as soon as possible patient's primary care is Dr. Paredes who requested an urgent colonoscopy as patient previously was ordered due to concerns from a malignancy. Patient's son reported that his brother passed in his 40s due to stage IV colon cancer. Patient's son also reported patient used to smoke 2-1/2 packs of cigarettes daily since the age of [age] and recently have decreased due to 1 pack daily. Patient is eager to leave and wants to go home however today his labs show drop in hemoglobin. Patient denies any dizziness shortness of breath chest pain or abdominal pain. Patient has no complaints. Exam Vital Signs Temp Pulse Resp BP Pulse Ox O2 Del Method O2 Flow Rate 98.0 F 75 18 144/66 H 95 Room Air 0 09/05/24 08:00 09/05/24 08:00 09/05/24 08:00 09/05/24 08:00 09/05/24 08:00 09/05/24 08:00 09/05/24 08:00 Narrative Exam GENERAL: A&Ox3 . Awake, Not in acute distress NEURO: no focal neurological deficits HEENT: Atraumatic, Normocephalic. mucous membranes moist. Eyes open, symmetrical, & clear HEART: Normal Heart Sounds LUNGS: Clear to auscultation with no wheezing or crackles. ABDOMEN: soft, non-distended, non-tender, bowel sounds heard, no guarding or rebound tenderness SKIN: No Rash or ecchymoses EXTREMITIES: No edema, tenderness, able to move all 4 extremities, pedal pulses palpated Objective Labs 09/05/24 04:03 09/05/24 04:03 Labs: Laboratory Results - last 24 hr 09/05/24 04:03 WBC 11.5 H RBC 3.44 L Hgb 7.7 L Hct 25.4 L MCV 74 L MCH 22.4 L MCHC 30.3 L RDW Std Deviation 63.4 H Plt Count 274 Neut % (Auto) 66 Lymph % (Auto) 21 Wilson % (Auto) 8 Eos % (Auto) 3 Baso % (Auto) 1 Neut # (Auto) 7.6 Lymph # (Auto) 2.4 Wilson # (Auto) 0.9 H Eos # (Auto) 0.4 Baso # (Auto) 0.1 Immature Gran # (Auto) 0.05 H Absolute Nucleated RBC 0.00 Immature Gran % 0 Nucleated RBC % 0 Sodium 140 Potassium 3.6 D Chloride 108 H Carbon Dioxide 25.4 Anion Gap 7 BUN 14 Creatinine 0.8 Estim Creat Clear Calc 79.6 eGFR > 60 BUN/Creatinine Ratio 18 Glucose 100 Calculated Osmolality 279 Calcium 8.3 Corrected Calcium 9.1 Phosphorus 2.9 Magnesium 1.8 Total Bilirubin 0.3 AST 11 ALT < 7 L Alkaline Phosphatase 72 Total Protein 4.9 L Albumin 3.0 L Globulin 1.9 L Albumin/Globulin Ratio 1.6 Quality Measures Quality Measures VTE prophylaxis (SCDs) Advance care planning discussed with:: patient Assessment & Plan Assessment Current Active Medications: Generic Name Dose Route Start Last Admin Trade Name Freq PRN Reason Stop Dose Admin Acetaminophen 650 mg 09/02/24 01:27 09/04/24 19:16 Acetaminophen 325 Mg Tablet PO 10/02/24 01:26 650 mg Q6H PRN Administration PAIN SCALE 1-3 (mild Acetaminophen 650 mg 09/02/24 01:27 Acetaminophen 325 Mg Tablet PO 10/02/24 01:26 Q6H PRN Fever >100.4 Dextrose 25 ml 09/02/24 02:15 Dextrose 50%-Water Inj 50 Ml Syringe IV 10/02/24 02:14 Q15MIN PRN BG 50-70 responsive npo pt Dextrose 50 ml 09/02/24 02:15 Dextrose 50%-Water Inj 50 Ml Syringe IV 10/02/24 02:14 Q15MIN PRN BG <50 OR BG <70 & pt unresponsive Glucagon 1 mg 09/02/24 02:15 Glucagon Inj 1 Mg Vial IM Q15MIN PRN BG <70, and no IV access Insulin Human Lispro 0 unit 09/02/24 07:30 09/05/24 08:12 Insulin Lispro (Admelog) 1 Unit/0.01 Ml Unit SC 10/02/24 07:29 Not Given ACHS ANTONI Protocol Nicotine 21 mg 09/03/24 09:00 09/05/24 08:35 Nicotine Patch 21 Mg/24 Hr Patch.Td24 TOP 10/03/24 08:59 21 mg QDAY ANTONI Administration Ondansetron HCl 4 mg 09/02/24 01:27 Ondansetron Inj 2 Mg/Ml Inj 2 Ml IV 10/02/24 01:26 Q6H PRN NAUSEA OR VOMITING Protocol Pantoprazole Sodium 40 mg 09/02/24 09:00 09/05/24 08:38 Pantoprazole Inj 40 Mg Vial IVP 10/02/24 08:59 40 mg BID ANTONI Administration Simethicone 80 mg 09/03/24 16:59 09/03/24 17:25 Simethicone 80 Mg Chew PO 10/03/24 16:58 80 mg QID PRN Administration GAS Plan Mr. Martinez is a 73-year-old male with past medical history of atrial fibrillation without medications, admitted for presyncope in settings of GI blood loss anemia. 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 #Symptomatic microcytic anemia #presyncope #Acute blood loss anemia- lower vs. 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 Returning with persistent dark stool, Hgb 8.0. -Patient also with complaint of ongoing dizziness and lightheadedness when rising from seated position, had presyncopal episode prior to admission. Denies head trauma or loss of consciousness. -FOBT positive. Normal coag studies. -Abdominal CT from last week showed no evidence of acute GI bleed. 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 Gastritis characterized by erythema. Distal esophageal mass is circumferential. Polyp in proximal esophagus. Biopsies were taken. -Orthostatic vitals were negative -On 09/03/24, hemoglobin down trended to 7.1, transfusing 1 unit Plan: -Clear liquid diet -Monitor daily CBC, transfuse hemoglobin if PRBC drops below 7 -Continue PROTONIX 40 mg BID -GI following the case -Oncology consulted for further recommendations, pathology pending however high concern for malignancy -Requested GI to consider colonoscopy while pt is inpatient to rule out malignancy -Replete electrolytes as necessary #Atrial fibrillation, rate controlled -Seen on EKG, HR 84. Currently does not take any medications. Remains in rate control. -[id number] 2 indicate 2-5% CVA risk annually. -HAS-BLED to indicate 4.1% risk of bleed. Plan: -Holding anticoagulation due to acute GI bleed with symptomatic anemia #Type II diabetes- new diagnosis -Admission GLUCOSE 194. A1c 6.7 from last week. No home glycemic control agents, no previous diagnosis of diabetes. Plan: -INSULIN sliding scale with hypoglycemia protocol -Accu-Cheks #Possible COPD on imaging -Patient had a low-dose CT scan performed as screening for lung cancer due to long history of smoking. -CT scan showed imaging findings potentially concerning for COPD. -Patient denies shortness of breath, cough, wheeze. Lung sounds clear to auscultation bilaterally. Plan: -Follow-up outpatient Health maintenance: DVT prophylaxis: SCDs GI prophylaxis: Protonix twice daily Diet: dysphagia 1-pureed Lines: Peripheral IV Code status: DNR Disposition: Patient was found to have esophageal tumor and distal esophagus. Oncology consulted.
[2024-09-05] MEDS: ACETAMINOPHEN 325 MG TABLET 650 MG PO (11:24)
--- NOTE | 2024-09-05 11:46 | PC.CC ---
Pt entered into [facility], pt open to [facility]
[2024-09-05] MEDS: HYDROcodone/APAP 5/325 TABLET 1 TAB PO (13:48)
[2024-09-05] MEDS: LIDOCAINE 5% 1 PATCH TOP (13:48)
--- NOTE | 2024-09-05 15:00 | PC.SS ---
SS follow up note; SS met with patient's son, Christopher and patient' sister, Alexandria, requesting [facility] informtion. SS informed them that SS would submit [facility] referral and fax to the [facility] office. SS provided [facility] contact information.
--- NOTE | 2024-09-05 15:49 | PD.IMPROG ---
Documentation for date of: 09/05/24 Subjective Subjective Interval history: Patient evaluated Radiation oncology consultation by Dr. Sandy highly appreciated Now the patient is plugged into the system As far as the primary care physician wanted colonoscopy which is a good idea however patient is at the very high risk of aspiration because of the obstructing malignancy at the GE junction I will postpone the colonoscopy till patient improves with the symptoms dysphagia He may eventually require gastrostomy tube placement or may need stenting of the esophagus to help with the dysphagia Exam Vital Signs Temp Pulse Resp BP Pulse Ox O2 Del Method O2 Flow Rate 97.8 F 68 16 150/84 H 96 Room Air 0 09/05/24 12:00 09/05/24 12:00 09/05/24 12:00 09/05/24 12:00 09/05/24 12:00 09/05/24 12:00 09/05/24 12:00 Objective Labs 09/05/24 04:03 09/05/24 04:03 Labs: Laboratory Results - last 24 hr 09/05/24 04:03 WBC 11.5 H RBC 3.44 L Hgb 7.7 L Hct 25.4 L MCV 74 L MCH 22.4 L MCHC 30.3 L RDW Std Deviation 63.4 H Plt Count 274 Neut % (Auto) 66 Lymph % (Auto) 21 [place] % (Auto) 8 Eos % (Auto) 3 Baso % (Auto) 1 Neut # (Auto) 7.6 Lymph # (Auto) 2.4 [place]ison # (Auto) 0.9 H Eos # (Auto) 0.4 Baso # (Auto) 0.1 Immature Gran # (Auto) 0.05 H Absolute Nucleated RBC 0.00 Immature Gran % 0 Nucleated RBC % 0 Sodium 140 Potassium 3.6 D Chloride 108 H Carbon Dioxide 25.4 Anion Gap 7 BUN 14 Creatinine 0.8 Estim Creat Clear Calc 79.6 eGFR > 60 BUN/Creatinine Ratio 18 Glucose 100 Calculated Osmolality 279 Calcium 8.3 Corrected Calcium 9.1 Phosphorus 2.9 Magnesium 1.8 Total Bilirubin 0.3 AST 11 ALT < 7 L Alkaline Phosphatase 72 Total Protein 4.9 L Albumin 3.0 L Globulin 1.9 L Albumin/Globulin Ratio 1.6 Impressions Impression: # Obstructing mass distal esophagus biopsies pending Plan Hold off the colonoscopy as it is highly risky for aspiration Case discussed with internal medicine team I will call his PCP to let him know that and I am sure he will understand reasons of not doing a colonoscopy during this hospitalization Assessment & Plan A&P Narrative 1. Likely malignancy involving the distal esophagus biopsy pending. 2 Multiple comorbidities, including A-fib diabetes COPD deafness 3. Spoke with Sister Alexandria Contreras about follow-up at the cancer treatment center next week. 4. Thank you for allowing me to evaluate this patient. Time Spent With Patient Time: Total time spent is greater than 50% in coordination of care (as documented) at patient's floor/unit and/or counseling patient:
[2024-09-06] VITALS (12 sets, daily range): BP systolic 137–172; BP diastolic 69–92; PULSE 61–80; RESP 16–21; TEMP 36.2–37; O2SAT 96–100; BMI 23.6
[2024-09-06] MEDS: ACETAMINOPHEN 325 MG TABLET 650 MG PO (01:49)
[2024-09-06 05:43] LABS: Basophils # (Auto) 0.1 Thou/mm3 (0.0-0.2); Basophils % (Auto) 1 % (0-2.5); Eosinophils # (Auto) 0.4 Thou/mm3 (0.0-0.5); Eosinophils % (Auto) 3 % (0-10); Immature Granulocytes % (Auto) 0 % (0-0); Immature Granulocytes Auto 0.03 Thou/mm3 (0.00-0.00); Lymphocytes # (Auto) 2.3 Thou/mm3 (1.0-4.8); Lymphocytes % (Auto) 18 % (10-50); Mean Corpuscular Hemoglobin 22.3 pg (25.0-35.0); Mean Corpuscular Volume 74 fL (80-100); Monocytes # (Auto) 0.9 Thou/mm3 (0.0-0.8); Monocytes % (Auto) 7 % (0-12); Neutrophils # (Auto) 8.8 Thou/mm3 (1.8-7.7); Neutrophils % (Auto) 70 % (37-80); Nucleated Red Blood Cell % 0 /100 WBC (0); Platelet Count 328 Thou/mm3 (140-440); RDW Standard Deviation 64.3 fL (35.1-43.9); White Blood Count 12.5 Thou/mm3 (3.8-10.6)
[2024-09-06 06:12] LABS: Hemoglobin 8.7 g/dL (13.5-16.0)
[2024-09-06 06:22] LABS: Anion Gap 6 (7-16); BUN/Creatinine Ratio 14 Ratio (12-20); Blood Urea Nitrogen 10 mg/dL (9-23); Calcium 8.9 mg/dL (8.3-10.6); Carbon Dioxide 29.3 mMol/L (20.0-31.0); Chloride 106 mMol/L (98-107); Creatinine (Component) 0.7 mg/dL (0.6-1.3); Estimated Creatinine Clearance 90.9 mL/min (>60); Glucose 104 mg/dL (74-106); Osmolality,Calculated 280 (275-295); Potassium 3.8 mMol/L (3.4-5.1); Sodium 141 mMol/L (136-145); eGFR > 60 See Note
[2024-09-06] MEDS: PANTOPRAZOLE INJ 40 MG VIAL IVP (08:11)
[2024-09-06] MEDS: NICOTINE PATCH 21 MG/24 HR PATCH.TD24 TOP (08:12)
[2024-09-06] MEDS: Magnesium Sulfate 2 GM Ivpb 2 GM/50 ML BAG IV (08:12)
--- NOTE | 2024-09-06 11:50 | ESPR_ITS ---
<Statement entered by Obey Easley MD - 09/06/24 17:06> Patient was seen and examined at the bedside. Patient is hard of hearing however was alert and responsive to questions. Per patient's family, they are concerned that they will be able to take care of the patient at home. Physical therapy evaluation was ordered for possible SNF placement. Hemoglobin remained stable at 8.7. Physical therapy reported that the patient has deviation of angle of mouth. Stroke alert was initiated. We ordered CT brain and MRI imaging. 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 Steroids were started per oncology recommendations. Family was updated. Pending neurology recommendations. All labs and orders were reviewed. I saw and examined the patient, and I agree with current management stated by Dr Tk MD,PGY1. Plan of care was discussed with the attending physician and resident physician. Disclaimer: Despite multiple revisions, due to the dictation software being used, the document bellow may not be free of grammatical errors including phonetic/typographic errors. However, this does not deter from our commitment to providing health care in the patient's best interest in mind. Dr. Tracee MD, PGY 2 Documentation for date of: 09/06/24 Subjective Subjective Interval history: No acute overnight events reported, patient seen and examined at bedside this morning. Patient is alert and oriented to self, time and place. Patient is requesting to be discharged home because he would like to go home and smoke cigarettes. Blood pressure is stable at 141/74 patient denies any chest pain, abdominal pain or shortness of breath. CBC is stable Hgb improved to 8.7 and CMP is unremarkable. Per discussion with patient's sister and son yesterday they do not want the patient in a rehab acute care facility but instead wanting to take the patient home however today patient's son expressed that he is unable to care for him at home and other family members are also unable to care for him. Will reconsider acute rehab facility for the patient for the time being. Physical therapy is ordered. Patient primary care requested patient undergo colonoscopy however patient is unable to drink the GoLytely prep for colonoscopy due to dysphagia and aspiration risk, per GI specialist recommend against it unless the family wants a PEG tube placed for GoLytely prep which the family has refused. Patient has no other complaints. Exam Vital Signs Temp Pulse Resp BP Pulse Ox O2 Del Method O2 Flow Rate 97.3 F 61 18 145/92 H 100 Room Air 0 09/06/24 08:00 09/06/24 08:00 09/06/24 08:00 09/06/24 08:00 09/06/24 08:00 09/06/24 08:00 09/06/24 08:00 Narrative Exam GENERAL: A&Ox3 . Awake, Not in acute distress NEURO: no focal neurological deficits HEENT: Atraumatic, Normocephalic. mucous membranes moist. Eyes open, symmetrical, & clear HEART: Normal Heart Sounds LUNGS: Clear to auscultation with no wheezing or crackles. ABDOMEN: soft, non-distended, non-tender, bowel sounds heard, no guarding or rebound tenderness SKIN: No Rash or ecchymoses EXTREMITIES: No edema, tenderness, able to move all 4 extremities, pedal pulses palpated Objective Labs 09/06/24 05:30 09/06/24 05:30 Labs: Laboratory Results - last 24 hr 09/06/24 05:30 WBC 12.5 H RBC 3.90 L Hgb 8.7 L Hct 29.0 L MCV 74 L MCH 22.3 L MCHC 30.0 L RDW Std Deviation 64.3 H Plt Count 328 D Neut % (Auto) 70 Lymph % (Auto) 18 [place] % (Auto) 7 Eos % (Auto) 3 Baso % (Auto) 1 Neut # (Auto) 8.8 H Lymph # (Auto) 2.3 [place] # (Auto) 0.9 H Eos # (Auto) 0.4 Baso # (Auto) 0.1 Immature Gran # (Auto) 0.03 H Absolute Nucleated RBC 0.00 Immature Gran % 0 Nucleated RBC % 0 Sodium 141 Potassium 3.8 Chloride 106 Carbon Dioxide 29.3 Anion Gap 6 L BUN 10 Creatinine 0.7 Estim Creat Clear Calc 90.9 eGFR > 60 BUN/Creatinine Ratio 14 Glucose 104 Calculated Osmolality 280 Calcium 8.9 Quality Measures Quality Measures VTE prophylaxis (SCDs) Advance care planning discussed with:: child Assessment & Plan Assessment Current Active Medications: Generic Name Dose Route Start Last Admin Trade Name Freq PRN Reason Stop Dose Admin Acetaminophen 650 mg 09/02/24 01:27 09/06/24 01:49 Acetaminophen 325 Mg Tablet PO 10/02/24 01:26 650 mg Q6H PRN Administration PAIN SCALE 1-3 (mild Acetaminophen 650 mg 09/02/24 01:27 Acetaminophen 325 Mg Tablet PO 10/02/24 01:26 Q6H PRN Fever >100.4 Hydrocodone Bitart/Acetaminophen 1 tab 09/05/24 13:38 09/05/24 13:48 Hydrocodone/Apap 5/325 Tablet PO 09/10/24 13:37 1 tab Q6HR PRN Administration PAIN SCALE 4-10(Mod-Sev Dextrose 25 ml 09/02/24 02:15 Dextrose 50%-Water Inj 50 Ml Syringe IV 10/02/24 02:14 Q15MIN PRN BG 50-70 responsive npo pt Dextrose 50 ml 09/02/24 02:15 Dextrose 50%-Water Inj 50 Ml Syringe IV 10/02/24 02:14 Q15MIN PRN BG <50 OR BG <70 & pt unresponsive Glucagon 1 mg 09/02/24 02:15 Glucagon Inj 1 Mg Vial IM Q15MIN PRN BG <70, and no IV access Insulin Human Lispro 0 unit 09/02/24 07:30 09/06/24 11:26 Insulin Lispro (Admelog) 1 Unit/0.01 Ml Unit SC 10/02/24 07:29 Not Given ACHS ANTONI Protocol Nicotine 21 mg 09/03/24 09:00 09/06/24 08:12 Nicotine Patch 21 Mg/24 Hr Patch.Td24 TOP 10/03/24 08:59 21 mg QDAY ANTONI Administration Ondansetron HCl 4 mg 09/02/24 01:27 Ondansetron Inj 2 Mg/Ml Inj 2 Ml IV 10/02/24 01:26 Q6H PRN NAUSEA OR VOMITING Protocol Pantoprazole Sodium 40 mg 09/02/24 09:00 09/06/24 08:11 Pantoprazole Inj 40 Mg Vial IVP 10/02/24 08:59 40 mg BID ANTONI Administration Simethicone 80 mg 09/03/24 16:59 09/03/24 17:25 Simethicone 80 Mg Chew PO 10/03/24 16:58 80 mg QID PRN Administration GAS Plan Mr. Martinez is a 73-year-old male with past medical history of atrial fibrillation without medications, admitted for presyncope in settings of GI blood loss anemia. 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 #Symptomatic microcytic anemia #presyncope- improved #Acute blood loss anemia- lower vs. 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 Returning with persistent dark stool, Hgb 8.0. -Patient also with complaint of ongoing dizziness and lightheadedness when rising from seated position, had presyncopal episode prior to admission. Denies head trauma or loss of consciousness. -FOBT positive. Normal coag studies. -Abdominal CT from last week showed no evidence of acute GI bleed. 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 Gastritis characterized by erythema. Distal esophageal mass is circumferential. Polyp in proximal esophagus. Biopsies were taken. -Orthostatic vitals were negative -On 09/03/24, hemoglobin down trended to 7.1, transfusing 1 unit Plan: -Clear liquid diet -Monitor daily CBC, transfuse hemoglobin if PRBC drops below 7 -Continue PROTONIX 40 mg BID -GI following the case -Oncology consulted for further recommendations, pathology pending however high concern for malignancy -Primary care physician requested stat colonoscopy however per GI recommendation patient is not a candidate to undergo GoLytely prep as, he is at risk of aspiration due to dysphagia and patient's family does not want PEG tube. Patient will need to follow-up outpatient with radiation oncologist Dr. Sandy for further recommendation and treatment plan based on the final pathology reports. -Physical therapy is ordered #Atrial fibrillation, rate controlled -Seen on EKG, HR 84. Currently does not take any medications. Remains in rate control. -[id number] 2 indicate 2-5% CVA risk annually. -HAS-BLED to indicate 4.1% risk of bleed. Plan: -Holding anticoagulation due to acute GI bleed with symptomatic anemia #Type II diabetes- new diagnosis -Admission GLUCOSE 194. A1c 6.7 from last week. No home glycemic control agents, no previous diagnosis of diabetes. Plan: -INSULIN sliding scale with hypoglycemia protocol -Accu-Cheks #Possible COPD on imaging -Patient had a low-dose CT scan performed as screening for lung cancer due to long history of smoking. -CT scan showed imaging findings potentially concerning for COPD. -Patient denies shortness of breath, cough, wheeze. Lung sounds clear to auscultation bilaterally. Plan: -Follow-up outpatient Health maintenance: DVT prophylaxis: SCDs GI prophylaxis: Protonix twice daily Diet: dysphagia 1-pureed Lines: Peripheral IV Code status: DNR Disposition: PT evaluation and decision for acute rehab facility Assessment and plan discussed with my senior resident Dr. Easley & attending physician Dr. Mary Frey (PGY-1)- Internal medicine resident
--- NOTE | 2024-09-06 14:41 | PC.SS ---
Addendum entered by Alexandria Hernández 09/06/24 15:11: SS folow up note; [facility] contacted SS and informed SS they are not contracted with patient's insurance, therefore are not able to accept patient. [facility] is pending Insurance verification as well as [facility] is pending Nurse evaluation at the time. Addendum entered by Alexandria Hernández 09/06/24 14:56: SS follow up note; Pending PT notes for Acute Rehabs to accept patient. SS will send PT notes to Acute rehab when available. Original Note: SS follow up note; SS was contacted by Kylie from PT recommending for patient to discharge to a Acute Rehab. SS submitted Acute Rehab through [employer]. Family agreeable to have patient discharge to an acute rehab.
--- NOTE | 2024-09-06 15:00 | XR_ITS ---
Examination: CT brain head without contrast. 2-D sagittal coronal reconstructions Date and time of exam:September 06, 2024 1512 hours INDICATIONS: Stroke alert, onset left-sided facial weakness today. CTDI: vol (mGy):53.8 DLP: (mGycm):1120 Technique: Multiple CT axial sections of the brain have been obtained, 5 mm slice thickness. Contrast has not been administered. 2-D sagittal, coronal reconstructions have been obtained Low dose protocols were performed. One or more of the following dose reduction techniques were used; automated exposure control, adjustment of the mA and/or KV according to patient size, use of iterative reconstruction technique. Findings: Multiple tumor masses in the right cerebral hemisphere Right frontal hyperdense pneumonitis 18 mm with prominent surrounding edema Right occipital lobe tumor mass 4.5 cm with surrounding edema Suspicious for soft tissue tumor mass right basal ganglia 3 cm Severe mass effect, shift of the frontal horns to the left 10 mm Significant edema in the temporal lobe Cranial vault appears intact IMPRESSION: Multiple right cerebral tumor masses with significant mass effect as above Recommend MRI brain pre and post contrast follow-up
--- NOTE | 2024-09-06 15:00 | XR_ITS ---
Examinations: MRI Brain without intravenous contrast. MRA brain without intravenous contrast. MRA carotids without intravenous contrast 3-D vascular reconstructions Date and time of exam: September 06, [id number] hrs. Indications: History atrial fibrillation, dizziness lightheadedness today, stroke alert Technique: Multiple axial and sagittal images of the brain have been obtained MRA brain carotid images without contrast obtained, including 3-D postprocessing, vascular maximum intensity projection images Findings: Diffuse generalized right cerebral edema Especially severe edema in the right frontal and posterior right parietal occipital lobes Severe mass effect, truncation of the anterior right frontal horn and shift of the frontal horns to the left at least 12 mm Diffuse effacement of the cortical sulcal markings Restricted diffusion in the right occipital lobe, 10 mm with signal deficit on the ADC map MRA images are severely degraded by patient motion Impression: Generalized diffuse right cerebral edema Lesions with marked edema in the right frontal lobe posterior right parietal occipital lobes producing significant mass effect Follow-up brain MRI post contrast would be critical in assessing for cerebral neoplastic lesions Restricted diffusion in the right occipital lobe, 10 mm with signal deficit on the ADC map which may represent limited acute infarction
--- NOTE | 2024-09-06 15:12 | XR_ITS ---
Examination: CTA carotids with intravenous contrast CTA brain, head with intravenous contrast. 2-D sagittal, coronal reconstructions. 3-D reconstructions. Exam date and time: September 06, 2024 1526 hours INDICATIONS: Stroke alert, onset left facial numbness slurred speech altered mental status today CTDI: vol (mGy) 24.8 DLP: (mGycm) 522 Technique: Multiple CTA axial brain, head carotid images post intravenous contrast injection 75 cc, Isovue-370. 2-D sagittal, coronal reconstructions. 3-D reconstructions, 3-D post processing including vascular maximum intensity projection images. Low dose protocols were performed. One or more of the following dose reduction techniques were used; automated exposure control, adjustment of the mA and/or KV according to patient size, use of iterative reconstruction technique. Findings: Please see the CT stroke alert brain scan today with multiple right cerebral masses and severe mass effect No significant common carotid carotid bifurcation or internal carotid artery stenoses Codominant vertebral arteries with no critical stenoses No cerebral large vessel arterial occlusions or thrombus IMPRESSION: No significant neck arterial stenoses No cerebral large vessel arterial occlusions or thrombus
[2024-09-06 15:17] LABS: Basophils # (Auto) 0.1 Thou/mm3 (0.0-0.2); Basophils % (Auto) 1 % (0-2.5); Eosinophils # (Auto) 0.2 Thou/mm3 (0.0-0.5); Eosinophils % (Auto) 2 % (0-10); Hematocrit 30.6 % (41.0-53.0); Hemoglobin 9.2 g/dL (13.5-16.0); Immature Granulocytes % (Auto) 0 % (0-0); Immature Granulocytes Auto 0.04 Thou/mm3 (0.00-0.00); Lymphocytes # (Auto) 1.5 Thou/mm3 (1.0-4.8); Lymphocytes % (Auto) 11 % (10-50); Mean Corpuscular HGB Conc 30.1 g/dl (31.0-37.0); Mean Corpuscular Hemoglobin 22.3 pg (25.0-35.0); Mean Corpuscular Volume 74 fL (80-100); Monocytes # (Auto) 0.9 Thou/mm3 (0.0-0.8); Monocytes % (Auto) 7 % (0-12); Neutrophils # (Auto) 10.3 Thou/mm3 (1.8-7.7); Neutrophils % (Auto) 79 % (37-80); Nucleated Red Blood Cell % 0 /100 WBC (0); Platelet Count 388 Thou/mm3 (140-440); RDW Standard Deviation 65.3 fL (35.1-43.9); Red Blood Count 4.12 Miln/mm3 (4.50-5.90); White Blood Count 13.1 Thou/mm3 (3.8-10.6)
--- NOTE | 2024-09-06 15:41 | PD.TNEURO ---
Tele Neuro Consultation Consultation Date 09/06/24 Most Recent Vital Signs Last Vital Signs Temp 98.3 F 09/06/24 11:58 Pulse 76 09/06/24 12:00 Resp 18 09/06/24 11:58 BP 141/74 H 09/06/24 11:58 Pulse Ox 100 09/06/24 11:58 O2 Del Method Room Air 09/06/24 11:58 O2 Flow Rate 0 09/06/24 08:00 Laboratory-Coagulation Panel PT 11.3 Seconds (9.0-12.2) 09/01/24 23:11 INR 1.0 (0.9-1.3) 09/01/24 23:11 APTT 23.9 Seconds (22.0-36.0) 09/01/24 23:11 Consultation Narrative [facility] Tele[facility]urology Consult Services Patient Name: Gordon Martinez Date of : 1950 Identification Number: Date of Service: 09/06/2024 15:02:35 Diagnosis: ? D49.6 - Brain tumor Impression: 73 yo M with PMH of Atrial fibrillation (not on anticoagulation), admitted on 09/02/24 after presenting to ED with ground level fall, unintentional weight loss, and dark stools, found to have anemia due to upper GI bleeding requiring transfusion, with esophageal mass, and stroke alert called for ataxia and altered mental status. NIHSS of 8 due to confusion, moderate aphasia, left sided upper and lower facial weakness. CTH with several masses in right cerebral hemispheres with surrounding edema, midline shift and concern of intracranial hemorrhage. Syndrome is most concerning for increased ICP due to brain tumors with mass effect and midline shift. Recommend strict blood pressure control, stat NGSY consult for ICP management, holding any anti thrombotics and MRI brain w/wo for suspected hemorrhagic metastatic disease. Recommendation: Diagnostic Studies: ? Repeat CT head in first 8-12hrs ? CTA head and neck with contrast Laboratory Studies: ? INR/PT ? aPTT ? CBC Medications: ? Hold antiplatelet therapy/NSAIDS/Anticoagulation Nursing Recommendations: ? Telemetry, IV Fluids, Avoid dextrose containing fluids, Maintain euglycemia ? Head of bed 30 degrees ? Neuro checks q1-2 hrs during ICU stay ? Once stable neuro checks q4 hrs ? keep BP less than 140/90's with goal of 130/80s Consultations: ? Need Neurosurgery consultation?STAT ? Recommend Speech therapy if failed dysphagia screen DVT Prophylaxis: ? SCDs Disposition: ? Neurology will Follow Metrics: Last Known Well: 09/06/2024 09:15:15 Dispatch Time: 09/06/2024 15:02:35 Initial Response Time: 09/06/2024 15:06:57 Symptoms: trouble walking. Initial patient interaction: 09/06/2024 15:13:40 NIHSS Assessment Completed: 09/06/2024 15:27:39 Patient is not a candidate for Thrombolytic. Thrombolytic Medical Decision: 09/06/2024 15:27:42 Patient was not deemed candidate for Thrombolytic because of following reasons: History of previous intracranial hemorrhage, intracranial neoplasm . I personally Reviewed the CT Head Primary Provider Notified of Diagnostic Impression and Management Plan on: 09/06/2024 15:38:23 Spoke With: Dr. Becker Able to Reach 09/06/2024 15:38:23 History of Present Illness: Patient is a 73 year old Male. Inpatient stroke alert was called for symptoms of trouble walking. 73 yo M with PMH of Atrial fibrillation (not on anticoagulation), presented to ED with ground level fall, unintentional weight loss, and dark stools, found to have anemia due to GI bleeding requiring transfusion, with esophageal mass, with stroke alert called for ataxia and altered mental status. Patient was working with therapies when he was found to be unable to ambulate and leaning to one side and had a facial droop. Patient endorses a KRAUSE but is a limited historian. Past Medical History: ? Atrial Fibrillation Medications: No Anticoagulant use No Antiplatelet use Reviewed EMR for current medications Allergies: NKDA Social History: Smoking: Yes Family History: There is no family history of premature cerebrovascular disease pertinent to this consultation ROS : 14 Points Review of Systems was performed and was negative except mentioned in HPI. Past Surgical History: There Is No Surgical History Contributory To Today?s Visit Examination: BP(142/85), Pulse(80), Blood Glucose(118) 1A: Level of Consciousness - Alert; keenly responsive + 0 1B: Ask Month and Age - 1 Question Right + 1 1C: Blink Eyes & Squeeze Hands - Performs 1 Task + 1 2: Test Horizontal Extraocular Movements - Normal + 0 3: Test Visual Moser - Partial Hemianopia + 1 4: Test Facial Palsy (Use Grimace if Obtunded) - Unilateral Complete paralysis (upper/lower face) + 3 5A: Test Left Arm Motor Drift - No Drift for 10 Seconds + 0 5B: Test Right Arm Motor Drift - No Drift for 10 Seconds + 0 6A: Test Left Leg Motor Drift - No Drift for 5 Seconds + 0 6B: Test Right Leg Motor Drift - No Drift for 5 Seconds + 0 7: Test Limb Ataxia (FNF/Heel-Velazco) - No Ataxia + 0 8: Test Sensation - Normal; No sensory loss + 0 9: Test Language/Aphasia - Mild-Moderate Aphasia: Some Obvious Changes, Without Significant Limitation + 1 10: Test Dysarthria - Mild-Moderate Dysarthria: Slurring but can be understood + 1 11: Test Extinction/Inattention - No abnormality + 0 NIHSS Score: 8 ICH Score: 1 Neel Coma Score: 13-15 (0) Age >= 80: No (0) ICH volume >= 30mL: Yes (+1) Intraventricular hemorrhage: No (0) Infratentorial origin of hemorrhage: No (0) Pre-Morbid Modified Pennington Scale: 7 Points = Unable to assess This consult was conducted in real time using interactive audio and video technology. Patient was informed of the technology being used for this visit and agreed to proceed. Patient located in hospital and provider located at home/office setting. Due to the immediate potential for life-threatening deterioration due to underlying acute neurologic illness, I spent 51 minutes providing critical care. This time includes time for face to face visit via telemedicine, review of medical records, imaging studies and discussion of findings with providers, the patient and/or family. Dr Elsa Dalton [facility] For Inpatient follow-up with [facility] physician please call [facility] at . As we are not an outpatient service for any post hospital discharge needs please contact the hospital for assistance. If you have any questions for the [facility] physicians or need to reconsult for clinical or diagnostic changes please contact us via [facility] at .[facility] Tele[facility]rology Consult [facility] Patient Name: Gordon Martinez Date of : 1950 Identification Number: Date of Service: 09/06/2024 15:02:35 Diagnosis: ? D49.6 - Brain tumor Impression: 73 yo M with PMH of Atrial fibrillation (not on anticoagulation), presented to ED with ground level fall, unintentional weight loss, and dark stools, found to have anemia due to GI bleeding requiring transfusion, with esophageal mass, with stroke alert called for ataxia and altered mental status. NIHSS of 8 due to confusion, moderate aphasia, left sided upper and lower facial weakness. CTH with several masses in right cerebral hemispheres with surrounding edema, midline shift and concern of intracranial hemorrhage. Syndrome is most concerning for increased ICP due to brain tumors with mass effect and midline shift. Recommend strict blood pressure control, stat NGSY consult for ICP management, holding any anti thrombotics and MRI brain w/wo for suspected metastatic disease. Recommendation: Diagnostic Studies: ? Repeat CT head in first 8-12hrs ? CTA head and neck with contrast Laboratory Studies: ? INR/PT ? aPTT? ? CBC Medications: ? Hold?antiplatelet?therapy/NSAIDS/Anticoagulation Nursing Recommendations: ? Telemetry, IV Fluids?Avoid dextrose containing fluids, Maintain euglycemia ? Head of bed 30 degrees ? Neuro checks q1-2?hrs?during ICU stay ? Once stable neuro checks q4?hrs ? keep BP less than 140/90's with goal of 130/80s Consultations: ? Need Neurosurgery consultation?STAT ? Recommend Speech therapy if failed dysphagia screen DVT Prophylaxis: ? SCDs Disposition: ? Neurology will Follow Metrics: Last Known Well: 09/06/2024 09:15:15 Dispatch Time: 09/06/2024 15:02:35 Initial Response Time: 09/06/2024 15:06:57 Symptoms: trouble walking. Initial patient interaction: 09/06/2024 15:13:40 NIHSS Assessment Completed: 09/06/2024 15:27:39 Patient is not a candidate for Thrombolytic. Thrombolytic Medical Decision: 09/06/2024 15:27:42 Patient was not deemed candidate for Thrombolytic because of following reasons: History of previous intracranial hemorrhage, intracranial neoplasm . I personally Reviewed the CT Head Primary Provider Notified of Diagnostic Impression and Management Plan on: 09/06/2024 15:38:23 Spoke With: Dr. Becker Able to Reach 09/06/2024 15:38:23 History of Present Illness: Patient is a 73 year old Male. Inpatient stroke alert was called for symptoms of trouble walking. 73 yo M with PMH of Atrial fibrillation (not on anticoagulation), presented to ED with ground level fall, unintentional weight loss, and dark stools, found to have anemia due to GI bleeding requiring transfusion, with esophageal mass, with stroke alert called for ataxia and altered mental status. Patient was working with therapies when he was found to be unable to ambulate and leaning to one side and had a facial droop. Patient endorses a KRAUSE but is a limited historian. Past Medical History: ? Atrial Fibrillation Medications: No Anticoagulant use No Antiplatelet use Reviewed EMR for current medications Allergies: NKDA Social History: Smoking: Yes Family History: There is no family history of premature cerebrovascular disease pertinent to this consultation ROS : 14 Points Review of Systems was performed and was negative except mentioned in HPI. Past Surgical History: There Is No Surgical History Contributory To Today?s Visit Examination: BP(142/85), Pulse(80), Blood Glucose(118) 1A: Level of Consciousness - Alert; keenly responsive + 0 1B: Ask Month and Age - 1 Question Right + 1 1C: Blink Eyes & Squeeze Hands - Performs 1 Task + 1 2: Test Horizontal Extraocular Movements - Normal + 0 3: Test Visual Moser - Partial Hemianopia + 1 4: Test Facial Palsy (Use Grimace if Obtunded) - Unilateral Complete paralysis (upper/lower face) + 3 5A: Test Left Arm Motor Drift - No Drift for 10 Seconds + 0 5B: Test Right Arm Motor Drift - No Drift for 10 Seconds + 0 6A: Test Left Leg Motor Drift - No Drift for 5 Seconds + 0 6B: Test Right Leg Motor Drift - No Drift for 5 Seconds + 0 7: Test Limb Ataxia (FNF/Heel-Velazco) - No Ataxia + 0 8: Test Sensation - Normal; No sensory loss + 0 9: Test Language/Aphasia - Mild-Moderate Aphasia: Some Obvious Changes, Without Significant Limitation + 1 10: Test Dysarthria - Mild-Moderate Dysarthria: Slurring but can be understood + 1 11: Test Extinction/Inattention - No abnormality + 0 NIHSS Score: 8 ICH Score: 1 Neel Coma Score: 13-15 (0) Age >= 80: No (0) ICH volume >= 30mL: Yes (+1) Intraventricular hemorrhage: No (0) Infratentorial origin of hemorrhage: No (0) Pre-Morbid Modified Pennington Scale: 7 Points = Unable to assess This consult was conducted in real time using interactive audio and video technology. Patient was informed of the technology being used for this visit and agreed to proceed. Patient located in hospital and provider located at home/office setting. Due to the immediate potential for life-threatening deterioration due to underlying acute neurologic illness, I spent 51 minutes providing critical care. This time includes time for face to face visit via telemedicine, review of medical records, imaging studies and discussion of findings with providers, the patient and/or family. Dr Elsa Dalton [facility] For Inpatient follow-up with [facility] physician please call [facility] at . As we are not an outpatient service for any post hospital discharge needs please contact the hospital for assistance. If you have any questions for the [facility] physicians or need to reconsult for clinical or diagnostic changes please contact us via [facility] at .
[2024-09-06] MEDS: dexAMETHasone 4 MG TABLET 10 MG PO (15:52)
--- NOTE | 2024-09-06 15:54 | PC.CC ---
Addendum entered by Ben Bolton RN 09/06/24 19:09: 1907 Called [facility] to inform picket [employer] time, left VM. Addendum entered by Ben Bolton RN 09/06/24 19:05: 1904 pt is off unit for his MRI. I won't be able to make CD. director decision support is 1999. Addendum entered by Ben Bolton RN 09/06/24 19:03: 1902 transfer packet is complete with CD inside including all signatures. Notified bedside nurse of the transfer packet and number to call for report. Addendum entered by Ben Bolton RN 09/06/24 18:47: 1840 sent paperwork to [facility] through [employer]. Called [facility], spoke to Ceci and setup the transport. director decision support time is 1999. Addendum entered by Ben Bolton RN 09/06/24 18:13: [id number] received call from Gretta at [facility] that pt is accepted for inpatient to ED transfer. Accepted by Dr. Shore. Call report at [phone]. Addendum entered by Ben Bolton RN 09/06/24 16:56: 1648 received call from Gretta at [facility] TC wants to speak with Dr. Humphreys. Conference call connected. Addendum entered by Ben Bolton RN 09/06/24 16:34: 1632 called [facility], spoke to Gretta and initiated the transfer. Addendum entered by Ben Bolton RN 09/06/24 16:31: [facility] spoke [facility] Marina and initiated the transfer. She stated she will review and call me back. Addendum entered by Ben Bolton RN 09/06/24 16:22: 1620 images pushed over to [facility]. Original Note: 1555 clinicals sent to Mem[facility] and [facility]. [address] Humphreys that pt needs to be transferred for multiple right cerebral tumor masses with significant mass effect needs neuro-surgical services. Pt was stroke alert today.
[2024-09-06] MEDS: HYDROcodone/APAP 5/325 TABLET 1 TAB PO (16:19)
[2024-09-06 16:21] LABS: Albumin, Serum 3.4 gm/dL (3.4-4.8); Albumin/Globulin Ratio 1.5 (1.2-2.2); Alkaline Phosphatase 91 U/L (46-116); Anion Gap 8 (7-16); Aspartate Amino Transferase < 10 U/L (0-34); BUN/Creatinine Ratio 13 Ratio (12-20); Bilirubin,Total 0.4 mg/dL (0.3-1.2); Blood Urea Nitrogen 10 mg/dL (9-23); Calcium 8.7 mg/dL (8.3-10.6); Calcium (Corrected) 9.2 mg/dL (8.5-10.1); Carbon Dioxide 27.3 mMol/L (20.0-31.0); Chloride 104 mMol/L (98-107); Creatinine (Component) 0.8 mg/dL (0.6-1.3); Estimated Creatinine Clearance 79.6 mL/min (>60); Globulin 2.2 gm/dL (2.3-3.5); Glucose 172 mg/dL (74-106); Osmolality,Calculated 280 (275-295); Potassium 4.3 mMol/L (3.4-5.1); Sodium 139 mMol/L (136-145); Total Protein 5.6 gm/dL (5.7-8.2); eGFR > 60 See Note
[2024-09-06] MEDS: INSULIN LISPRO (AdmeLOG) 1 UNIT/0.01 ML UNIT SC (16:24)
--- NOTE | 2024-09-06 16:38 | PD.RESEVENT ---
Documentation for date of: 09/06/24 Event Note Event Note: Received a call from physical therapy while they were working with Mr. Martinez. There was concern for facial droop and gait deviation. I presented to bedside and performed a neurological exam, which was significant for abnormal [id number] testing. Facial droop appeared worse due to patient's asymmetrical mustache. Remainder of neuroexam was within normal limits. Due to significant smoking history and recent esophageal mass noted on EGD, stroke alert was initiated. Telemetry neuro was consulted. NIHSS was 8. Stat Head CT was significant for multiple right cerebral tumor masses with significant mass effect (18 mm mass in right frontal lobe with edema; 4.5 cm right occipital lobe mass with edema; suspicious for 3 cm soft tissue tumor mass in right basal ganglia). CTA head and neck was negative for LVO. Case was discussed with teleneurologist who recommended MRI with/without contrast, strict blood pressure control with SBP <140, neurosurgical consult, avoid antiplatelets, repeat head CT in first 8 to 12 hours (ordered for midnight), labs including CBC, PTT, PT/INR. In-house neurology was consulted. Transfer nurse consulted for neurosurgical transfer/eval. Additionally I spoke with oncology who had seen patient yesterday, and he recommended to start patient on steroids for cerebral edema. Patient is already on Protonix twice daily for GI bleed, as noted earlier. Patient's son and patient's sister were notified and updated with plan of action at this time. Lisandra Humphreys MD PGY-3
[2024-09-06 16:53] LABS: Alanine Aminotransferase < 7 U/L (10-49)
[2024-09-06 17:02] LABS: Partial Thromboplastin Time 26.2 Seconds (22.0-36.0); Prothrombin Time 11.3 Seconds (9.0-12.2)
[2024-09-06] MEDS: LABETALOL INJ 5 MG/ML VIAL 20 ML 10 MG IVP (17:21)
--- NOTE | 2024-09-06 18:24 | PD.RESDS ---
Planned Discharge Date 09/06/24 DS: Providers Provider Date of admission: 09/02/24 01:27 Primary care physician: Physician No Primary/Family Admitting Provider: Denice Peterson MD Attending Provider on Admission: Stacia Damon MD Consults: 09/02/24 00:58 Consult to Gastroenterology Stat Comment: Consulting Provider: Zoya Rapp 09/03/24 07:16 Consult to Oncology Routine Comment: Consulting Provider: Gómez Sandy 09/03/24 22:41 Consult to Oncology Routine Comment: Consulting Provider: Gómez Sandy 09/06/24 11:36 Referral Physical Therapy Urgent Comment: eval Physician Instructions: 09/06/24 16:18 Consult to Neurology / Tele-Neurology Urgent Comment: CHEF PASSENGER VESSEL mets, edema, mass effect Consulting Provider: Tl Berry Attending Provider on DC: Lisandra Humphreys MD Discharging Provider: Lisandra Humphreys MD DS: Diagnosis Problem List Completed Was Problem List Reviewed/Reconciled?: Yes Hospital Course Hospital Course Hospital course: Patient is a 73-year-old male with A-fib not on anticoagulation, new T2DM, chronic smoker (~120 pack years) and deafness/hard of hearing who initially presented on 09/02/2024 with presyncope/GLF. He was seen 2 weeks prior with a hemoglobin of 6.5 and received 2 pRBC transfusions in the ER. During this visit, patient endorsed having dark stool, and underwent an EGD which was significant for esophageal mass in the lower third of esophagus. Biopsy returned today 09/06/2024 with well-differentiated invasive adenocarcinoma. Patient was seen by oncology on 09/05/2024, with plan for follow-up next week. Initial plan was to discharge home however family requested SNF placement, therefore PT eval was ordered today (09/06). During PT eval, there was concern for gait abnormality and facial droop, therefore stroke alert initiated. Head CT was significant for multiple tumor masses with significant mass effect, midline shift and cerebral edema (right frontal lobe, right occipital lobe, right basal ganglia). There is also concern for possible bleed within the mass. MRI ordered, but not done at this time due to tech availability. Teleneuro evaluated patient, NIHSS was 8, and recommended neurosurgical evaluation for increased ICP, steroids, strict BP control with SBP <[address] Vital signs are stable, patient has a GCS of 15 and was following all commands during my physical exam. He is hard of hearing, and does not have his hearing aid at this time. Patient is stable for transfer to [facility] for neurosurgical evaluation. 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 Wagner. Lisandra Humphreys MD PGY-3 Status at Discharge Cognitive/behavioral status at discharge: AAOx3 Time Spent with Patient Time attestation: Total time spent providing and/or coordinating discharge services: Time spent: Greater than 30 minutes Exam Vital Signs Temp Pulse Resp BP Pulse Ox O2 Del Method O2 Flow Rate 998.3 F H 72 18 141/74 H 100 Room Air 0 09/06/24 17:53 09/06/24 17:53 09/06/24 17:53 09/06/24 17:53 09/06/24 17:53 09/06/24 16:00 09/06/24 16:00 Narrative Exam Gen: AAOx3, sitting in bed grimacing from pain HEENT: mild facial droop on left; PERRLA, EOMI, edentulous, ?mass in oral cavity CVS: Irregular rhythm, RR. No MRG Resp: CTA B/L. No rhonchi, rales, crackles or wheezing Abd: soft, non-tender, non-distended. BS+ in all 4 quadrants MSK: Able to move all 4 extremities, no peripheral edema noted Neuro: GCS 15; CN II-XII grossly intact. Strength 4/5 in BUE & BLE. Sensory intact. Abnormal [id number] Discharge Plan Plan Patient Disposition: [facility] Pt Being Transferred to: [facility] Service Needed for Transfer: Neurosurgery Patient condition on transfer: Stable Prescriptions/Referrals Prescriptions/Med Rec: New pantoprazole [Protonix] 40 mg tablet,delayed release (DR/EC) 40 mg PO BID Qty: 60 0RF simethicone 80 mg Tablet,Chewable 80 mg PO QID PRN (Reason: Gas) Qty: 30 0RF nicotine 21 mg/24 hr Patch 24 Hour 21 mg top QDAY Qty: 14 0RF metformin 500 mg tablet 500 mg PO BID Qty: 60 0RF (DME) blood-glucose meter Kit See Rx Instructions .Route Qty: 1 0RF Rx Instructions: As directed to check blood sugar daily (DME) Blood Glucose Test Strip See Rx Instructions .Route Qty: 50 2RF Rx Instructions: As directed to check blood sugar daily (DME) Comfort Touch Ult Thin Lancets 31 gauge misc See Rx Instructions .Route Qty: 100 2RF Rx Instructions: As directed to check blood sugar daily Referrals: Gómez Sandy MD [Physician] - Zoya Rapp MD [Physician] - No Primary/Family,Physician [Primary Care Provider] - Patient/Caregiver Discharge Instructions Education Materials: Managing Type 2 Diabetes, How to Check Your Blood Sugar, Upper GI Endoscopy, Smoking and Diabetes Print Language: Salvadorean Discharge Order Discharge Orders: Discharge (Routine); Ordered 09/06/24 Ordered By: Lisandra Humphreys Quality Discharge Quality Measures VTE prophylaxis (SCDs) Attestestation MD Attestation I have examined the patient, reviewed labs and imaging findings, discussed the case with the resident(s), and reviewed entered orders. I agree with the plan of care as outlined in this note. Dr. Kristy MD
[2024-09-06] MEDS: hydrALAZINE INJ 20 MG/ML VIAL 10 MG IV (20:00)
--- NOTE | 2024-09-06 20:10 | PC.NURSE ---
Gave report to EMT Fahad, pt transferring to [facility]. Pt BP 163/81 HR 69 informed EMT hydralazine 10mg IV was given to pt at 1999. Family at bedside.
--- NOTE | 2024-09-06 20:45 | PC.NURSE ---
2044: Gave report to Nurse Uribe from [facility], Pt BP was 163/81 HR 69, gave Hydralazine 10mg IV before transportation pickup.
--- NOTE | 2024-09-06 21:00 | PD.IMPROG ---
Documentation for date of: 09/06/24 Subjective Subjective Interval history: CT head and neck negative for any occlusion of the major vessels However CT head as well as MRI MRI of the brain shows multiple lesions in the liver with edema patient is getting transferred to [facility] Exam Vital Signs Temp Pulse Resp BP Pulse Ox O2 Del Method O2 Flow Rate 97.7 F 69 16 163/81 H 99 Room Air 0 09/06/24 20:00 09/06/24 20:00 09/06/24 20:00 09/06/24 20:00 09/06/24 20:00 09/06/24 20:00 09/06/24 16:00 Routine Respiratory Exam Comments: Normal to auscultation Routine Abdominal Exam Comments: Soft nontender Objective Labs 09/06/24 15:10 09/06/24 15:10 Labs: Laboratory Results - last 24 hr 09/06/24 09/06/24 05:30 15:10 WBC 12.5 H 13.1 H RBC 3.90 L 4.12 L Hgb 8.7 L 9.2 L Hct 29.0 L 30.6 L MCV 74 L 74 L MCH 22.3 L 22.3 L MCHC 30.0 L 30.1 L RDW Std Deviation 64.3 H 65.3 H Plt Count 328 D 388 D Neut % (Auto) 70 79 Lymph % (Auto) 18 11 [place] % (Auto) 7 7 Eos % (Auto) 3 2 Baso % (Auto) 1 1 Neut # (Auto) 8.8 H 10.3 H Lymph # (Auto) 2.3 1.5 [place] # (Auto) 0.9 H 0.9 H Eos # (Auto) 0.4 0.2 Baso # (Auto) 0.1 0.1 Immature Gran # (Auto) 0.03 H 0.04 H Absolute Nucleated RBC 0.00 0.00 Immature Gran % 0 0 Nucleated RBC % 0 0 PT 11.3 INR 1.0 APTT 26.2 Sodium 141 139 Potassium 3.8 4.3 D Chloride 106 104 Carbon Dioxide 29.3 27.3 Anion Gap 6 L 8 BUN 10 10 Creatinine 0.7 0.8 Estim Creat Clear Calc 90.9 79.6 eGFR > 60 > 60 BUN/Creatinine Ratio 14 13 Glucose 104 172 H D Calculated Osmolality 280 280 Calcium 8.9 8.7 Corrected Calcium 9.2 Total Bilirubin 0.4 AST < 10 ALT < 7 L Alkaline Phosphatase 91 D Total Protein 5.6 L Albumin 3.4 Globulin 2.2 L Albumin/Globulin Ratio 1.5 Impressions Impression: 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 Likely malignancy involving the distal esophagus biopsy pending. 2 Multiple comorbidities, including A-fib diabetes COPD deafness 3. Spoke with Sister Alexandria Contreras about follow-up at the cancer treatment center next week. 4. Thank you for allowing me to evaluate this patient. Time Spent With Patient Time: Total time spent is greater than 50% in coordination of care (as documented) at patient's floor/unit and/or counseling patient:
--- NOTE | 2024-09-06 22:21 | PD.NEUROPROG ---
Documentation for date of: 09/06/24 Subjective Subjective Interval history: Patient was seen in telemetry today with his son at the bedside at dinnertime. He denies any headache dizziness, or weakness or paresthesias in both upper and lower extremities. Exam - Neurology Vital Signs Temp Pulse Resp BP Pulse Ox O2 Del Method O2 Flow Rate 97.7 F 69 16 163/81 H 99 Room Air 0 09/06/24 20:00 09/06/24 20:00 09/06/24 20:00 09/06/24 20:00 09/06/24 20:00 09/06/24 20:00 09/06/24 16:00 Narrative Exam GENERAL APPEARANCE: Well hydrated, well-nourished in no acute distress. HEENT: Normocephalic, atraumatic, extraocular movements intact. Pupils: Equal reacting to light NECK: Supple, no JVD or bruits. CARDIOVASULAR: Heart: S1, S2 heard, regular without S3-S4 or murmur no rubs or gallops. LUNGS/CHEST: Clear to auscultation bilaterally. No rails, rhonchi, or wheezing. Normal inspection. ABDOMEN: Soft, nontender, with normal bowel sounds. No pulsatile masses. No rebound, rigidity, or guarding. Normal inspection and palpation. EXTREMITIES: Normal inspection and palpation. No edema, clubbing or cyanosis. SKIN: Warm and dry without rashes. Normal inspection. MUSCULOSKELETAL: No cervical, thoracic, lumbar or midline bony tenderness. Normal inspection. NEURO: Alert, awake and oriented x3. Cranial nerves: II through XII grossly intact with exception of left facial weakness of upper motor neuron type. Speech and language: Normal with no dysarthria or dysphasia. Motor system: Tone and bulk: Normal: Strength: Moves all 4 extremities; No pronator drift noted. Deep tendon reflexes: 2+ bilaterally symmetrical. Plantar reflex: Downgoing bilaterally. Sensory system: Intact to all modalities of sensation bilaterally. Coordination: Intact to [id number] and [id number] test bilaterally. No ataxia, no dysmetria, or dysdiadochokinesia noted. No intention tremors noted. Gait: Not tested. No signs of meningeal irritation noted. PSYCHIATRIC: Normal mood and affect. Objective Labs 09/06/24 15:10 09/06/24 15:10 Labs: Laboratory Results - last 24 hr 09/06/24 09/06/24 05:30 15:10 WBC 12.5 H 13.1 H RBC 3.90 L 4.12 L Hgb 8.7 L 9.2 L Hct 29.0 L 30.6 L MCV 74 L 74 L MCH 22.3 L 22.3 L MCHC 30.0 L 30.1 L RDW Std Deviation 64.3 H 65.3 H Plt Count 328 D 388 D Neut % (Auto) 70 79 Lymph % (Auto) 18 11 [place] % (Auto) 7 7 Eos % (Auto) 3 2 Baso % (Auto) 1 1 Neut # (Auto) 8.8 H 10.3 H Lymph # (Auto) 2.3 1.5 [place] # (Auto) 0.9 H 0.9 H Eos # (Auto) 0.4 0.2 Baso # (Auto) 0.1 0.1 Immature Gran # (Auto) 0.03 H 0.04 H Absolute Nucleated RBC 0.00 0.00 Immature Gran % 0 0 Nucleated RBC % 0 0 PT 11.3 INR 1.0 APTT 26.2 Sodium 141 139 Potassium 3.8 4.3 D Chloride 106 104 Carbon Dioxide 29.3 27.3 Anion Gap 6 L 8 BUN 10 10 Creatinine 0.7 0.8 Estim Creat Clear Calc 90.9 79.6 eGFR > 60 > 60 BUN/Creatinine Ratio 14 13 Glucose 104 172 H D Calculated Osmolality 280 280 Calcium 8.9 8.7 Corrected Calcium 9.2 Total Bilirubin 0.4 AST < 10 ALT < 7 L Alkaline Phosphatase 91 D Total Protein 5.6 L Albumin 3.4 Globulin 2.2 L Albumin/Globulin Ratio 1.5 Assessment & Plan Assessment and plan (1) Metastasis to brain: Status: Acute Assessment and plan: CT head showed multiple brain masses, MRI brain showed Generalized diffuse right cerebral edema Lesions with marked edema in the right frontal lobe posterior right parietal occipital lobes producing significant mass effect Recommended MRI brain with contrast by radiology continue with the Decadron Monitor for seizures Patient got accepted to [facility] with neurosurgery (2) Anemia: Status: Chronic Assessment and plan: Continue to monitor hemoglobin and hematocrit closely for possible blood transfusion with drop (3) Type 2 diabetes mellitus: Status: Chronic Assessment and plan: Continue to check fingerstick glucose and follow sliding scale insulin protocol
== END 2024-09-06 20:27 | disposition short-term general hospital (02) | DRG 374 ==
LOC: SERX 09-02 02:09 → S2NX 09-02 07:00 → SERHOLD 09-05 06:46 → S2NX 09-05 06:46 → S3SX 09-05 06:46 → S2NX 09-05 06:46
PROVIDERS: Physician Assistant; Specialist; Student in an Organized Health Care Education/Training Program; Admitting Provider Student in an Organized Health Care Education/Training Program; Emergency Provider Emergency Medicine; Visit Provider Internal Medicine
PROC: (CPT 43239; principal; 2024-09-02 19:30)
DX: C15.5 Malignant neoplasm of lower third of esophagus (principal); G93.6 Cerebral edema; C79.31 Secondary malignant neoplasm of brain; D62 Acute posthemorrhagic anemia; R18.8 Other ascites; I48.91 Unspecified atrial fibrillation; I10 Essential (primary) hypertension; E11.9 Type 2 diabetes mellitus without complications; H91.90 Unspecified hearing loss, unspecified ear; K29.70 Gastritis, unspecified, without bleeding; R13.10 Dysphagia, unspecified; J44.9 Chronic obstructive pulmonary disease, unspecified; R63.4 Abnormal weight loss; F17.210 Nicotine dependence, cigarettes, uncomplicated; E87.6 Hypokalemia; W18.30XA Fall on same level, unspecified, initial encounter; Z66 Do not resuscitate; Z63.4 Disappearance and death of family member; Z68.23 Body mass index [BMI] 23.0-23.9, adult; Z79.899 Other long term (current) drug therapy
CPT/HCPCS: 36415; 70450; 70496; 70498; 70544; 80048; 80053; 80061; 83735; 84100; 84439; 84443; 84484; 85014; 85018; 85025; 85610; 85730; 86850; 86900; 86901; 86923; 93005; 93225; 96374; 97163; 99285; A4649; J0360; J1200; J1815; J2250; J2470; J3010; J3475; J3490; J8540; P9016; Q9967; A9270; J1920

== ENCOUNTER 2024-09-12 12:24 | Inpatient (IN) | payer OTHER, MEDICARE, SELFPAY ==
--- NOTE | 2024-09-12 10:17 | PC.NURSE ---
Received report from Candida RN [facility].
[2024-09-12 13:06] VITALS: BMI 21.2
[2024-09-12 15:49] VITALS: BP 167/69; PULSE 63
[2024-09-12] MEDS: PANTOPRAZOLE 40 MG TABLET PO (15:49)
[2024-09-12] MEDS: dexAMETHasone 4 MG TABLET PO ×2 (15:49→23:03)
[2024-09-12] MEDS: LOSARTAN POTASSIUM 25 MG TABLET 50 MG PO (15:49)
[2024-09-12 16:00] VITALS: PULSE 64; RESP 18; TEMP 36.5; O2SAT 94
[2024-09-12 16:09] LABS: Basophils % (Auto) 0 % (0-2.5); Eosinophils % (Auto) 0 % (0-10); Hematocrit 27.8 % (41.0-53.0); Immature Granulocytes % (Auto) 1 % (0-0); Immature Granulocytes Auto 0.14 Thou/mm3 (0.00-0.00); Lymphocytes # (Auto) 1.6 Thou/mm3 (1.0-4.8); Lymphocytes % (Auto) 9 % (10-50); Mean Corpuscular HGB Conc 31.7 g/dl (31.0-37.0); Mean Corpuscular Hemoglobin 23.4 pg (25.0-35.0); Mean Corpuscular Volume 74 fL (80-100); Monocytes # (Auto) 1.4 Thou/mm3 (0.0-0.8); Monocytes % (Auto) 8 % (0-12); Neutrophils % (Auto) 83 % (37-80); Nucleated Red Blood Cell % 0 /100 WBC (0); Platelet Count 300 Thou/mm3 (140-440); RDW Standard Deviation 63.9 fL (35.1-43.9); Red Blood Count 3.76 Miln/mm3 (4.50-5.90); White Blood Count 18.2 Thou/mm3 (3.8-10.6)
[2024-09-12 16:31] VITALS: PULSE 75; RESP 100; RESP 18
[2024-09-12 16:33] LABS: Alanine Aminotransferase < 7 U/L (10-49); Albumin, Serum 3.3 gm/dL (3.4-4.8); Albumin/Globulin Ratio 1.6 (1.2-2.2); Alkaline Phosphatase 76 U/L (46-116); Anion Gap 7 (7-16); Aspartate Amino Transferase 16 U/L (0-34); BUN/Creatinine Ratio 32 Ratio (12-20); Bilirubin,Total 0.4 mg/dL (0.3-1.2); Blood Urea Nitrogen 19 mg/dL (9-23); Calcium 8.5 mg/dL (8.3-10.6); Calcium (Corrected) 9.1 mg/dL (8.5-10.1); Carbon Dioxide 22.7 mMol/L (20.0-31.0); Chloride 105 mMol/L (98-107); Creatinine (Component) 0.6 mg/dL (0.6-1.3); Globulin 2.1 gm/dL (2.3-3.5); Glucose 129 mg/dL (74-106); Osmolality,Calculated 274 (275-295); Potassium 4.1 mMol/L (3.4-5.1); Sodium 135 mMol/L (136-145); Total Protein 5.4 gm/dL (5.7-8.2); eGFR > 60 See Note
[2024-09-12 16:41] LABS: Hemoglobin 8.8 g/dL (13.5-16.0)
[2024-09-12] MEDS: SODIUM CHLORIDE 1 GM TABLET PO (18:30)
[2024-09-12 20:00] VITALS: BP 135/63; PULSE 77; RESP 17; TEMP 36.1; O2SAT 96
[2024-09-12 20:30] VITALS: PULSE 86
--- NOTE | 2024-09-12 21:14 | ESHP_ITS ---
<Statement entered by Obey Easley MD - 09/13/24 07:41> I saw and examined the patient, and I agree with current management stated by Dr Tk MD,PGY1. Plan of care was discussed with the attending physician and resident physician. Disclaimer: Despite multiple revisions, due to the dictation software being used, the document bellow may not be free of grammatical errors including phonetic/typographic errors. However, this does not deter from our commitment to providing health care in the patient's best interest in mind. Dr. Tracee MD, PGY 2 Documentation for date of: 09/12/24 HPI History of Present Illness History of present illness: Mr. melchor is a 73 year old male with past medical history significant for bilateral hearing loss, A-fib rate controlled without any medications and anticoagulations presented to [facility] on 09/02/24 after presoncopal episode in the setting acute blood loss anemia. Pt underwent EGD which showed malignant esophageal tumor in the lower third of esophagus, pathology report was evident of well differentiated invasive adenocarcinoma. On 09/06/24 rapid response was called due to pt's altered mental status and facial asymmetry subsequently stroke alert was called CT head showed Multiple tumor masses in the right cerebral hemisphere, Right frontal hyperdense pneumonitis 18 mm with prominent surrounding edema, Right occipital lobe tumor mass 4.5 cm with surrounding edema, Suspicious for soft tissue tumor mass right basal ganglia 3 cm, Severe mass effect, shift of the frontal horns to the left 10 mm Significant edema in the temporal lobe. Stat neurosurgery transfer was initiated, Pt was transfered to [facility] on 09/06/24. Pt underwent neurosurgical intervention on 09/08/25 and is transfered back from [facility] on 09/12/24. PMH: A-fib. PSH: Left pinky partial amputation SH: Current heavy smoker, previous alcohol use, no marijuana or illicit drug use. MEDS: None ALLERGIES: NKA Review of Systems Review of Systems Systems Reviewed: All systems reviewed, normal except as documented Exam Vital Signs Temp Pulse Resp BP Pulse Ox O2 Del Method 97.0 F 77 17 135/63 H 96 Room Air 09/12/24 20:00 09/12/24 20:00 09/12/24 20:00 09/12/24 20:00 09/12/24 20:00 09/12/24 20:00 Narrative Exam GENERAL: A&Ox3 . Awake, Not in acute distress NEURO: no focal neurological deficits HEENT: Atraumatic, Normocephalic. mucous membranes moist. Eyes open, symmetrical, & clear, incision side on head is clean with bandage HEART: Normal Heart Sounds LUNGS: Clear to auscultation with no wheezing or crackles. ABDOMEN: soft, non-distended, non-tender, bowel sounds heard, no guarding or rebound tenderness SKIN: No Rash or ecchymoses EXTREMITIES: No edema, tenderness, able to move all 4 extremities, pedal pulses palpated Results: Labs 09/13/24 04:45 09/13/24 04:45 Labs: Short CBC 09/12/24 Range/Units 15:43 WBC 18.2 H D (3.8-10.6) Thou/mm3 Hgb 8.8 L (13.5-16.0) g/dL Hct 27.8 L (41.0-53.0) % Plt Count 300 D (140-440) Thou/mm3 BMP 09/12/24 15:43 Sodium 135 L Potassium 4.1 Chloride 105 Carbon Dioxide 22.7 BUN 19 Creatinine 0.6 Glucose 129 H Calcium 8.5 Liver Function 09/12/24 Range/Units 15:43 Total Bilirubin 0.4 (0.3-1.2) mg/dL AST 16 (0-34) U/L ALT < 7 L (10-49) U/L Alkaline Phosphatase 76 (46-116) U/L Albumin 3.3 L (3.4-4.8) gm/dL Quality Measures Quality Measures VTE prophylaxis Advance care planning discussed with:: other Medications Home Medications and Allergies Allergies Allergy/AdvReac Type Severity Reaction Status Date / Time No Known Allergies Allergy Verified 09/02/24 20:46 Visit Medications Acetaminophen (Acetaminophen 325 Mg Tablet) 650 mg PO Q6H PRN; Protocol PRN Reason: Fever >100.4 or pain Stop: 10/12/24 15:20 Dexamethasone (Dexamethasone 4 Mg Tablet) 4 mg PO Q8HR ANTONI Stop: 09/15/24 13:59 Last Admin: 09/12/24 15:49 Dose: 4 mg Dextrose (Dextrose 50%-Water Inj 50 Ml Syringe) 25 ml IV Q15MIN PRN PRN Reason: BG 50-70 responsive npo pt Stop: 10/12/24 15:26 Dextrose (Dextrose 50%-Water Inj 50 Ml Syringe) 50 ml IV Q15MIN PRN PRN Reason: BG <50 OR BG <70 & pt unresponsive Stop: 10/12/24 15:26 Glucagon (Glucagon Inj 1 Mg Vial) 1 mg IM Q15MIN PRN PRN Reason: BG <70, and no IV access Losartan Potassium (Losartan Potassium 25 Mg Tablet) 50 mg PO QDAY ANTONI Stop: 10/12/24 13:59 Last Admin: 09/12/24 15:49 Dose: 50 mg Nicotine (Nicotine Patch 21 Mg/24 Hr Patch.Td24) 21 mg TOP QDAY ANTONI Stop: 10/13/24 08:59 Ondansetron HCl (Ondansetron Inj 2 Mg/Ml Inj 2 Ml) 4 mg IV Q6H PRN; Protocol PRN Reason: NAUSEA OR VOMITING Stop: 10/12/24 15:20 Pantoprazole Sodium (Pantoprazole 40 Mg Tablet) 40 mg PO QDAY ANTONI Stop: 10/12/24 13:59 Last Admin: 09/12/24 15:49 Dose: 40 mg Sennosides (Senna Tablet) 1 tab PO QDAY PRN; Protocol PRN Reason: constipation Stop: 10/12/24 15:20 Sodium Chloride (Sodium Chloride 1 Gm Tablet) 1 gm PO TIDWM ANTONI Stop: 10/12/24 17:29 Last Admin: 09/12/24 18:30 Dose: 1 gm Assessment & Plan Plan Mr. melchor is a 73 year old male with past medical history significant for bilateral hearing loss, A-fib rate controlled without any medications and anticoagulations presented to [facility] on 09/02/24 after presoncopal episode in the setting acute blood loss anemia. 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 Pt is transfered back from [facility] after neurosurgical intervention. #Esophageal adenocarcinoma, undifferentiated #brain masses #Liver masses -EGD with path reported is evident of esophageal adenocarcinoma -CT of head is event of multiple brain masses with midline shift, pt was transfered to [facility]. -Pt is s/p right occipital and right frontal craniotomy for tumor resection by Dr. Shore on 09/08 -CT abdomen with contrast at [facility] done- showed multiple liver masses, liver triphase CT confirms metastatic liver masses. As well as multiple abnormal lymph nodes throughout retroperitoneum consistent with lymph node metastases. plan: -maintain SBP <160 -PT/OT -avoid hyponatremia (goal 135-145) -decadron taper 2mg over one week -pt may showered 48 hrs post op -Incentives spirometry ordered -consult to radio-onc -Upon discharge, Pt will need to follow up with Dr. Shore at [facility] 4 weeks post op -A-fib anticoagulation to be held for 1 week post op, DVT prophylaxis is ok to start #Acute blood loss anemia #upper GI bleed -EGD showing esophageal masses -Protonix 40mg daily -monitor daily CBC, transfuse as needed to keep Hgb > 7 #Atrial fibrillation, rate controlled -Seen on EKG, HR 84. Currently does not take any medications. Remains in rate control. -[id number] 2 indicate 2-5% CVA risk annually. -HAS-BLED to indicate 4.1% risk of bleed. Plan: -Holding anticoagulation due to acute GI bleed with symptomatic anemia and 1 week post op #Type II diabetes- new diagnosis -Admission GLUCOSE 194. A1c 6.7 from last week. No home glycemic control agents, no previous diagnosis of diabetes. Plan: -INSULIN sliding scale with hypoglycemia protocol -Accu-Cheks #Tobacco use disorder -Pt is an active smoker and has 60 packs-year smoking history -nicotine patch ordered #Possible COPD on imaging -Patient had a low-dose CT scan performed as screening for lung cancer due to long history of smoking. -CT scan showed imaging findings potentially concerning for COPD. -Patient denies shortness of breath, cough, wheeze. Lung sounds clear to auscultation bilaterally. Plan: -Follow-up outpatient Health Maintenance Disposition: Medsurg DVT Prophylaxis: none in the setting of recent brain surgery GI Prophylaxis: Pantoprozol-40 PO Qday Diet: dysphagia 1 pureed Lines: Peripheral lines Code status: DNR Assessment and plan discussed with my senior resident Dr. Easley & attending physician Dr. Radha Frey (PGY-1)- Internal medicine resident Attending Provider Attestation/Addendum I have discussed and was present for the essential components of the history, physical examination, diagnosis, and treatment plan with the resident. I agree with the patient's care as documented by the resident and amended herein by me. Jonas Garcia DO. Although this document has been carefully reviewed, there may still be some phonetic and other typographical errors. These errors are purely grammatical due to imperfections in the software program and should not be construed in any way to compromise the substance of the patient's medical care during this visit.
[2024-09-12 21:53] VITALS: PULSE 74; RESP 19; RESP 99
[2024-09-13] VITALS (11 sets, daily range): BP systolic 104–133; BP diastolic 51–83; PULSE 64–81; RESP 16–96; TEMP 36.3–36.5; O2SAT 93–95; BMI 21.2; BMI 13.0
[2024-09-13 06:06] LABS: Basophils % (Auto) 0 % (0-2.5); Eosinophils % (Auto) 0 % (0-10); Hematocrit 25.6 % (41.0-53.0); Immature Granulocytes % (Auto) 1 % (0-0); Lymphocytes # (Auto) 0.9 Thou/mm3 (1.0-4.8); Lymphocytes % (Auto) 5 % (10-50); Mean Corpuscular HGB Conc 31.6 g/dl (31.0-37.0); Mean Corpuscular Hemoglobin 23.5 pg (25.0-35.0); Mean Corpuscular Volume 74 fL (80-100); Monocytes # (Auto) 0.8 Thou/mm3 (0.0-0.8); Monocytes % (Auto) 5 % (0-12); Neutrophils # (Auto) 15.3 Thou/mm3 (1.8-7.7); Neutrophils % (Auto) 89 % (37-80); Nucleated Red Blood Cell % 0 /100 WBC (0); Platelet Count 371 Thou/mm3 (140-440); RDW Standard Deviation 64.6 fL (35.1-43.9); Red Blood Count 3.44 Miln/mm3 (4.50-5.90); White Blood Count 17.2 Thou/mm3 (3.8-10.6)
[2024-09-13 06:15] LABS: Hemoglobin 8.1 g/dL (13.5-16.0)
[2024-09-13] MEDS: dexAMETHasone 4 MG TABLET PO ×3 (06:18→21:28)
[2024-09-13 06:26] LABS: Partial Thromboplastin Time 24.5 Seconds (22.0-36.0)
[2024-09-13 06:40] LABS: Alanine Aminotransferase < 7 U/L (10-49); Albumin, Serum 3.2 gm/dL (3.4-4.8); Albumin/Globulin Ratio 1.6 (1.2-2.2); Alkaline Phosphatase 77 U/L (46-116); Anion Gap 7 (7-16); Aspartate Amino Transferase < 10 U/L (0-34); BUN/Creatinine Ratio 30 Ratio (12-20); Bilirubin,Total 0.4 mg/dL (0.3-1.2); Blood Urea Nitrogen 21 mg/dL (9-23); Calcium 8.7 mg/dL (8.3-10.6); Calcium (Corrected) 9.3 mg/dL (8.5-10.1); Carbon Dioxide 25.3 mMol/L (20.0-31.0); Chloride 103 mMol/L (98-107); Creatinine (Component) 0.7 mg/dL (0.6-1.3); Estimated Creatinine Clearance 86.6 mL/min (>60); Glucose 160 mg/dL (74-106); Magnesium 1.9 mg/dL (1.6-2.6); Osmolality,Calculated 276 (275-295); Phosphorous 2.9 mg/dL (2.4-5.1); Sodium 135 mMol/L (136-145); Total Protein 5.2 gm/dL (5.7-8.2); eGFR > 60 See Note
[2024-09-13] MEDS: NICOTINE PATCH 21 MG/24 HR PATCH.TD24 TOP (08:16)
[2024-09-13] MEDS: PANTOPRAZOLE 40 MG TABLET PO (08:31)
[2024-09-13] MEDS: LOSARTAN POTASSIUM 25 MG TABLET 50 MG PO (08:31)
[2024-09-13] MEDS: SODIUM CHLORIDE 1 GM TABLET PO ×2 (08:32→18:03)
--- NOTE | 2024-09-13 08:49 | PC.SS ---
-Patient Gordon Martinez is 73 year old male admitted for Multiple Cerebral Masses. SS contacted patient's son Ankit Martinez and he reported Patient resides at home with him and his family. Patient's son reported himself and his aunt Alexandria Contreras are medical decision makers. Patient is reported to be normally independent with ADL's. Patient has a walker at home if necessary. Patient PCP is Dr. Arias at [facility]'s office. Patient pharmacy [facility] in [place]. Plan is for the patient discharge to an acute Rehab Facility, patient's son requesting [facility]. SS will submit for acute care rehab. D/c plan: [facility] Next of kin: Son, Ankit Martinez, [phone] sister, Alexandria
--- NOTE | 2024-09-13 12:56 | PC.SS ---
SS follow up note; Patient refusing PT eval. SS submitted inquiry to Acute Rehab facilities, however patient must participate in order to obtain auth.
--- NOTE | 2024-09-13 16:18 | ESPR_ITS ---
<Statement entered by Obey Easley MD - 09/13/24 16:33> Patient seen and examined at the bedside. No acute overnight events were reported. Initially, patient was refusing to work with PT however family arrived and PT recommended SNF placement. Vitals were stable and labs were insignificant. Currently we are waiting on SNF authorization placement. GI specialist recommended that patient can continue Eliquis after a week. All labs and orders were reviewed. I saw and examined the patient, and I agree with current management stated by Dr Tk MD,PGY1. Plan of care was discussed with the attending physician and resident physician. Disclaimer: Despite multiple revisions, due to the dictation software being used, the document bellow may not be free of grammatical errors including phonetic/typographic errors. However, this does not deter from our commitment to providing health care in the patient's best interest in mind. Dr. Tracee MD, PGY 2 Documentation for date of: 09/13/24 Subjective Subjective Interval history: No acute overnight events reported. Patient seen and examined at bedside this morning. Patient appears to be a little agitated and rigid. patient is initially refusing to work with PT however after convincing him he agreed to work with physical therapist. Patient is status post craniotomy and was transferred back from [facility] yesterday. Patient denies any shortness of breath or pain. Vitals are stable with blood pressure 110/56 patient is saturating on room air. Labs are reviewed with leukocytosis is downtrending and hemoglobin is stable. Patient is waiting SNF placement and per neuro surgery recommendation patient may resume anticoagulation for A-fib 1 week postop and per GI rec indication Dr. Rapp is agreeable. Exam Vital Signs Temp Pulse Resp BP Pulse Ox O2 Del Method 97.7 F 81 16 110/56 L 93 L Room Air 09/13/24 08:00 09/13/24 12:00 09/13/24 08:00 09/13/24 08:31 09/13/24 08:00 09/13/24 08:00 Narrative Exam GENERAL: A&Ox3 . Awake, Not in acute distress NEURO: no focal neurological deficits HEENT: Atraumatic, Normocephalic. mucous membranes moist. Eyes open, symmetrical, & clear, incision side on head is clean with bandage HEART: Normal Heart Sounds LUNGS: Clear to auscultation with no wheezing or crackles. ABDOMEN: soft, non-distended, non-tender, bowel sounds heard, no guarding or rebound tenderness SKIN: No Rash or ecchymoses EXTREMITIES: No edema, tenderness, able to move all 4 extremities, pedal pulses palpated Objective Labs 09/13/24 04:45 09/13/24 04:45 Labs: Laboratory Results - last 24 hr 09/12/24 09/13/24 15:43 04:45 WBC 17.2 H RBC 3.44 L Hgb 8.8 L 8.1 L Hct 25.6 L MCV 74 L MCH 23.5 L MCHC 31.6 RDW Std Deviation 64.6 H Plt Count 371 D Neut % (Auto) 89 H Lymph % (Auto) 5 L [place] % (Auto) 5 Eos % (Auto) 0 Baso % (Auto) 0 Neut # (Auto) 15.3 H Lymph # (Auto) 0.9 L [place] # (Auto) 0.8 Eos # (Auto) 0.0 Baso # (Auto) 0.0 Immature Gran # (Auto) 0.10 H Absolute Nucleated RBC 0.00 Immature Gran % 1 H Nucleated RBC % 0 PT 11.0 INR 1.0 APTT 24.5 Sodium 135 L 135 L Potassium 4.1 4.0 Chloride 105 103 Carbon Dioxide 22.7 25.3 Anion Gap 7 7 BUN 19 21 Creatinine 0.6 0.7 Estim Creat Clear Calc 101.0 86.6 eGFR > 60 > 60 BUN/Creatinine Ratio 32 H 30 H Glucose 129 H 160 H Calculated Osmolality 274 L 276 Calcium 8.5 8.7 Corrected Calcium 9.1 9.3 Phosphorus 2.9 Magnesium 2.0 1.9 Total Bilirubin 0.4 0.4 AST 16 < 10 ALT < 7 L < 7 L Alkaline Phosphatase 76 77 Total Protein 5.4 L 5.2 L Albumin 3.3 L 3.2 L Globulin 2.1 L 2.0 L Albumin/Globulin Ratio 1.6 1.6 Quality Measures Quality Measures VTE prophylaxis Advance care planning discussed with:: other Assessment & Plan Assessment Current Active Medications: Generic Name Dose Route Start Last Admin Trade Name Freq PRN Reason Stop Dose Admin Acetaminophen 650 mg 09/12/24 15:21 Acetaminophen 325 Mg Tablet PO 10/12/24 15:20 Q6H PRN Fever >100.4 or pain Protocol Dexamethasone 4 mg 09/12/24 14:00 09/13/24 13:05 Dexamethasone 4 Mg Tablet PO 09/15/24 13:59 4 mg Q8HR ANTONI Administration Dextrose 25 ml 09/12/24 15:27 Dextrose 50%-Water Inj 50 Ml Syringe IV 10/12/24 15:26 Q15MIN PRN BG 50-70 responsive npo pt Dextrose 50 ml 09/12/24 15:27 Dextrose 50%-Water Inj 50 Ml Syringe IV 10/12/24 15:26 Q15MIN PRN BG <50 OR BG <70 & pt unresponsive Dextrose 25 ml 09/13/24 12:11 Dextrose 50%-Water Inj 50 Ml Syringe IV 10/13/24 12:10 Q15MIN PRN BG 50-70 responsive npo pt Dextrose 50 ml 09/13/24 12:11 Dextrose 50%-Water Inj 50 Ml Syringe IV 10/13/24 12:10 Q15MIN PRN BG <50 OR BG <70 & pt unresponsive Glucagon 1 mg 09/12/24 15:27 Glucagon Inj 1 Mg Vial IM Q15MIN PRN BG <70, and no IV access Glucagon 1 mg 09/13/24 12:11 Glucagon Inj 1 Mg Vial IM Q15MIN PRN BG <70, and no IV access Insulin Human Lispro 0 unit 09/13/24 17:00 Insulin Lispro (Admelog) 1 Unit/0.01 Ml Unit SC 10/13/24 16:59 ACHS ANTONI Protocol Losartan Potassium 50 mg 09/12/24 14:00 09/13/24 08:31 Losartan Potassium 25 Mg Tablet PO 10/12/24 13:59 50 mg QDAY ANTONI Administration Nicotine 21 mg 09/13/24 09:00 09/13/24 08:16 Nicotine Patch 21 Mg/24 Hr Patch.Td24 TOP 10/13/24 08:59 21 mg QDAY ANTONI Administration Ondansetron HCl 4 mg 09/12/24 15:21 Ondansetron Inj 2 Mg/Ml Inj 2 Ml IV 10/12/24 15:20 Q6H PRN NAUSEA OR VOMITING Protocol Pantoprazole Sodium 40 mg 09/12/24 14:00 09/13/24 08:31 Pantoprazole 40 Mg Tablet PO 10/12/24 13:59 40 mg QDAY ANTONI Administration Sennosides 1 tab 09/12/24 15:21 Senna Tablet PO 10/12/24 15:20 QDAY PRN constipation Protocol Sodium Chloride 1 gm 09/12/24 17:30 09/13/24 12:03 Sodium Chloride 1 Gm Tablet PO 10/12/24 17:29 Not Given TIDWM ANTONI Plan Mr. melchor is a 73 year old male with past medical history significant for bilateral hearing loss, A-fib rate controlled without any medications and anticoagulations presented to [facility] on 09/02/24 after presoncopal episode in the setting acute blood loss anemia. 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 Pt is transfered back from [facility] after neurosurgical intervention. #Esophageal adenocarcinoma, undifferentiated #brain masses #Liver masses -EGD with path reported is evident of esophageal adenocarcinoma -CT of head is event of multiple brain masses with midline shift, pt was transfered to [facility]. -Pt is s/p right occipital and right frontal craniotomy for tumor resection by Dr. Shore on 09/08 -CT abdomen with contrast at [facility] done- showed multiple liver masses, liver triphase CT confirms metastatic liver masses. As well as multiple abnormal lymph nodes throughout retroperitoneum consistent with lymph node metastases. plan: -maintain SBP <160 -PT/OT -avoid hyponatremia (goal 135-145) -decadron taper 2mg over one week -pt may showered 48 hrs post op -Incentives spirometry ordered -consult to radio-onc -Upon discharge, Pt will need to follow up with Dr. Shore at [facility] 4 weeks post op -A-fib anticoagulation to be held for 1 week post op, DVT prophylaxis is ok to start #Acute blood loss anemia #upper GI bleed -EGD showing esophageal masses -Protonix 40mg daily -monitor daily CBC, transfuse as needed to keep Hgb > 7 #Atrial fibrillation, rate controlled -Seen on EKG, HR 84. Currently does not take any medications. Remains in rate control. -[id number] 2 indicate 2-5% CVA risk annually. -HAS-BLED to indicate 4.1% risk of bleed. Plan: -Holding anticoagulation due to acute GI bleed with symptomatic anemia and 1 week post op #Type II diabetes- new diagnosis -A1c 6.7 on 08/19/24, No home glycemic control agents, no previous diagnosis of diabetes. Plan: -INSULIN sliding scale with hypoglycemia protocol -Accu-Cheks #Tobacco use disorder -Pt is an active smoker and has 60 packs-year smoking history -nicotine patch ordered #Possible COPD on imaging -Patient had a low-dose CT scan performed as screening for lung cancer due to long history of smoking. -CT scan showed imaging findings potentially concerning for COPD. -Patient denies shortness of breath, cough, wheeze. Lung sounds clear to auscultation bilaterally. Plan: -Follow-up outpatient Health Maintenance Disposition: Medsurg DVT Prophylaxis: none in the setting of recent brain surgery GI Prophylaxis: Pantoprozol-40 PO Qday Diet: dysphagia 1 pureed Lines: Peripheral lines Code status: DNR Assessment and plan discussed with my senior resident Dr. Easley & attending physician Dr. Radha Frey (PGY-1)- Internal medicine resident Attending Provider Attestation/Addendum I have discussed and was present for the essential components of the history, physical examination, diagnosis, and treatment plan with the resident. I agree with the patient's care as documented by the resident and amended herein by me. Jonas Garcia DO. Patient seen and evaluated this AM. Pending SNF placement Although this document has been carefully reviewed, there may still be some phonetic and other typographical errors. These errors are purely grammatical due to imperfections in the software program and should not be construed in any way to compromise the substance of the patient's medical care during this visit.
[2024-09-13 16:22] LABS: Phosphorous 3.2 mg/dL (2.4-5.1)
[2024-09-13] MEDS: ACETAMINOPHEN 325 MG TABLET 650 MG PO (18:02)
[2024-09-13] MEDS: INSULIN LISPRO (AdmeLOG) 1 UNIT/0.01 ML UNIT SC ×2 (18:04→20:31)
--- NOTE | 2024-09-13 20:30 | PC.NURSE ---
Patient assisted to bathroom , ambulatory, with 2 person assist. Did pass a lot of gas , but no bowel movement.
[2024-09-14] VITALS (13 sets, daily range): BP systolic 109–133; BP diastolic 57–84; PULSE 64–78; RESP 16–99; TEMP 36.3–36.6; O2SAT 95–99; BMI 13.0
[2024-09-14] MEDS: dexAMETHasone 4 MG TABLET PO ×3 (05:08→21:10)
[2024-09-14 05:57] LABS: Basophils % (Auto) 0 % (0-2.5); Eosinophils % (Auto) 0 % (0-10); Hematocrit 26.3 % (41.0-53.0); Immature Granulocytes % (Auto) 1 % (0-0); Immature Granulocytes Auto 0.13 Thou/mm3 (0.00-0.00); Lymphocytes # (Auto) 1.8 Thou/mm3 (1.0-4.8); Lymphocytes % (Auto) 10 % (10-50); Mean Corpuscular HGB Conc 30.8 g/dl (31.0-37.0); Mean Corpuscular Hemoglobin 23.1 pg (25.0-35.0); Mean Corpuscular Volume 75 fL (80-100); Monocytes # (Auto) 1.5 Thou/mm3 (0.0-0.8); Monocytes % (Auto) 8 % (0-12); Neutrophils # (Auto) 15.6 Thou/mm3 (1.8-7.7); Neutrophils % (Auto) 82 % (37-80); Nucleated Red Blood Cell % 0 /100 WBC (0); Platelet Count 346 Thou/mm3 (140-440); RDW Standard Deviation 64.9 fL (35.1-43.9)
[2024-09-14 06:11] LABS: Hemoglobin 8.1 g/dL (13.5-16.0)
[2024-09-14 06:29] LABS: Alanine Aminotransferase < 7 U/L (10-49); Albumin, Serum 3.2 gm/dL (3.4-4.8); Albumin/Globulin Ratio 1.7 (1.2-2.2); Alkaline Phosphatase 77 U/L (46-116); Anion Gap 6 (7-16); Aspartate Amino Transferase < 10 U/L (0-34); BUN/Creatinine Ratio 29 Ratio (12-20); Bilirubin,Total 0.4 mg/dL (0.3-1.2); Blood Urea Nitrogen 23 mg/dL (9-23); Calcium 8.7 mg/dL (8.3-10.6); Calcium (Corrected) 9.3 mg/dL (8.5-10.1); Carbon Dioxide 26.7 mMol/L (20.0-31.0); Chloride 101 mMol/L (98-107); Creatinine (Component) 0.8 mg/dL (0.6-1.3); Estimated Creatinine Clearance 75.7 mL/min (>60); Globulin 1.9 gm/dL (2.3-3.5); Glucose 134 mg/dL (74-106); Osmolality,Calculated 273 (275-295); Potassium 4.1 mMol/L (3.4-5.1); Sodium 134 mMol/L (136-145); Total Protein 5.1 gm/dL (5.7-8.2); eGFR > 60 See Note
[2024-09-14] MEDS: NICOTINE PATCH 21 MG/24 HR PATCH.TD24 TOP (08:56)
--- NOTE | 2024-09-14 09:23 | PC.SS ---
Addendum entered by JON Dick 09/14/24 17:05: SS follow up: attempted contact with Stefanie at [facility], unable to reach her and provided a voicemail to her. Addendum entered by JON Dick 09/14/24 15:17: [facility] requesting patient's DC summary from [facility] and operative report. SS sent via [employer] to [facility] and notified Stefanie with admissions it was sent. Stefanie informed she will review and determine if able to accept the patient. Addendum entered by JON Dick 09/14/24 10:38: Sent updated notes to [facility] and spoke with Stefanie at the facility to review notes to present case if able to accept the patient. Addendum entered by JON Dick 09/14/24 09:46: SS update: send updated notes to: [facility], [facility] in [place]. Notified [facility] via [employer] that they are the patient's family's preferred and reach out if able to accept the patient. Original Note: SS follow up: spoke with the patient's aunt Alexandria, regarding the d/c plan. She is requesting [facility] for the patient. Also considering the patient is [facility] in [place].
[2024-09-14] MEDS: SODIUM CHLORIDE 1 GM TABLET PO ×2 (11:42→17:15)
[2024-09-14] MEDS: SENNA TABLET 1 TAB PO (11:42)
[2024-09-14] MEDS: INSULIN LISPRO (AdmeLOG) 1 UNIT/0.01 ML UNIT SC ×2 (11:42→21:09)
[2024-09-14] MEDS: PANTOPRAZOLE 40 MG TABLET PO (15:02)
--- NOTE | 2024-09-14 16:24 | ESPR_ITS ---
<Statement entered by Obey Easley MD - 09/14/24 16:50> Patient was seen and examined at the bedside. Patient was angry as he lost his hearing aid. He was explained that he will be discharged to SNF we are waiting on the placement and family was updated regarding the plan. No acute overnight events were reported. Labs were insignificant. Tapering down steroids per neurosurgery recommendations tomorrow. All labs and orders were reviewed. I saw and examined the patient, and I agree with current management stated by Dr Tk MD,PGY1. Plan of care was discussed with the attending physician and resident physician. Disclaimer: Despite multiple revisions, due to the dictation software being used, the document bellow may not be free of grammatical errors including phonetic/typographic errors. However, this does not deter from our commitment to providing health care in the patient's best interest in mind. Dr. Tracee MD, PGY 2 Documentation for date of: 09/14/24 Subjective Subjective Interval history: No acute overnight events reported. Patient seen and examined at bedside this morning. Patient appears to be agitated and is complaining about wanting to leave and would like to get out of bed and use the toilet instead of using the diaper. Patient denies any pain, his hearing aids are found. Vitals are stable, labs are significant for low WBC 19.0 which is likely secondary to steroid use, hemoglobin is stable at 8.1 and hematocrit 26.3 MCV 75 and glucose 134. Will continue steroid taper with 4 mg dexamethasone until tomorrow and then will be tapered to 2 mg for another 3 days. pending authorization for acute rehab facility. Exam Vital Signs Temp Pulse Resp BP Pulse Ox O2 Del Method 97.7 F 73 18 129/78 99 Room Air 09/14/24 15:51 09/14/24 15:51 09/14/24 15:51 09/14/24 15:51 09/14/24 15:51 09/14/24 15:51 Narrative Exam GENERAL: A&Ox3 . Awake, Not in acute distress NEURO: no focal neurological deficits HEENT: Atraumatic, Normocephalic. mucous membranes moist. Eyes open, symmetrical, & clear, incision side on head is clean with bandage HEART: Normal Heart Sounds LUNGS: Clear to auscultation with no wheezing or crackles. ABDOMEN: soft, non-distended, non-tender, bowel sounds heard, no guarding or rebound tenderness SKIN: No Rash or ecchymoses EXTREMITIES: No edema, tenderness, able to move all 4 extremities, pedal pulses palpated Objective Labs 09/14/24 05:43 09/14/24 05:43 Labs: Laboratory Results - last 24 hr 09/14/24 05:43 WBC 19.0 H RBC 3.50 L Hgb 8.1 L Hct 26.3 L MCV 75 L MCH 23.1 L MCHC 30.8 L RDW Std Deviation 64.9 H Plt Count 346 Neut % (Auto) 82 H Lymph % (Auto) 10 [place] % (Auto) 8 Eos % (Auto) 0 Baso % (Auto) 0 Neut # (Auto) 15.6 H Lymph # (Auto) 1.8 [place] # (Auto) 1.5 H Eos # (Auto) 0.0 Baso # (Auto) 0.0 Immature Gran # (Auto) 0.13 H Absolute Nucleated RBC 0.00 Immature Gran % 1 H Nucleated RBC % 0 Sodium 134 L Potassium 4.1 Chloride 101 Carbon Dioxide 26.7 Anion Gap 6 L BUN 23 Creatinine 0.8 Estim Creat Clear Calc 75.7 eGFR > 60 BUN/Creatinine Ratio 29 H Glucose 134 H Calculated Osmolality 273 L Calcium 8.7 Corrected Calcium 9.3 Phosphorus 3.0 Magnesium 2.0 Total Bilirubin 0.4 AST < 10 ALT < 7 L Alkaline Phosphatase 77 Total Protein 5.1 L Albumin 3.2 L Globulin 1.9 L Albumin/Globulin Ratio 1.7 Quality Measures Quality Measures VTE prophylaxis Advance care planning discussed with:: patient Assessment & Plan Assessment Current Active Medications: Generic Name Dose Route Start Last Admin Trade Name Freq PRN Reason Stop Dose Admin Acetaminophen 650 mg 09/12/24 15:21 09/13/24 18:02 Acetaminophen 325 Mg Tablet PO 10/12/24 15:20 650 mg Q6H PRN Administration Fever >100.4 or pain Protocol Dexamethasone 4 mg 09/12/24 14:00 09/14/24 14:04 Dexamethasone 4 Mg Tablet PO 09/15/24 00:00 4 mg Q8HR ANTONI Administration Dexamethasone 4 mg 09/15/24 09:00 Dexamethasone 4 Mg Tablet PO 09/18/24 08:59 Q12H ANTONI Dextrose 25 ml 09/13/24 12:11 Dextrose 50%-Water Inj 50 Ml Syringe IV 10/13/24 12:10 Q15MIN PRN BG 50-70 responsive npo pt Dextrose 50 ml 09/13/24 12:11 Dextrose 50%-Water Inj 50 Ml Syringe IV 10/13/24 12:10 Q15MIN PRN BG <50 OR BG <70 & pt unresponsive Glucagon 1 mg 09/13/24 12:11 Glucagon Inj 1 Mg Vial IM Q15MIN PRN BG <70, and no IV access Insulin Human Lispro 0 unit 09/13/24 17:00 09/14/24 11:42 Insulin Lispro (Admelog) 1 Unit/0.01 Ml Unit SC 10/13/24 16:59 2 unit ACHS ANTONI Administration Protocol Losartan Potassium 50 mg 09/12/24 14:00 09/14/24 09:09 Losartan Potassium 25 Mg Tablet PO 10/12/24 13:59 Not Given QDAY ANTONI Nicotine 21 mg 09/13/24 09:00 09/14/24 08:56 Nicotine Patch 21 Mg/24 Hr Patch.Td24 TOP 10/13/24 08:59 21 mg QDAY ANTONI Administration Ondansetron HCl 4 mg 09/12/24 15:21 Ondansetron Inj 2 Mg/Ml Inj 2 Ml IV 10/12/24 15:20 Q6H PRN NAUSEA OR VOMITING Protocol Pantoprazole Sodium 40 mg 09/12/24 14:00 09/14/24 09:09 Pantoprazole 40 Mg Tablet PO 10/12/24 13:59 Not Given QDAY ANTONI Sennosides 1 tab 09/12/24 15:21 09/14/24 11:42 Senna Tablet PO 10/12/24 15:20 1 tab QDAY PRN Administration constipation Protocol Sodium Chloride 1 gm 09/12/24 17:30 09/14/24 11:42 Sodium Chloride 1 Gm Tablet PO 10/12/24 17:29 1 gm TIDWM ANTONI Administration Plan Mr. melchor is a 73 year old male with past medical history significant for bilateral hearing loss, A-fib rate controlled without any medications and anticoagulations presented to [facility] on 09/02/24 after presoncopal episode in the setting acute blood loss anemia. 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 Pt is transfered back from [facility] after neurosurgical intervention. #Esophageal adenocarcinoma, undifferentiated #brain masses #Liver masses -EGD with path reported is evident of esophageal adenocarcinoma -CT of head is event of multiple brain masses with midline shift, pt was transfered to [facility]. -Pt is s/p right occipital and right frontal craniotomy for tumor resection by Dr. Shore on 09/08 -CT abdomen with contrast at [facility] done- showed multiple liver masses, liver triphase CT confirms metastatic liver masses. As well as multiple abnormal lymph nodes throughout retroperitoneum consistent with lymph node metastases. plan: -maintain SBP <160 -PT/OT -avoid hyponatremia (goal 135-145) -decadron taper 2mg over one week -pt may showered 48 hrs post op -Incentives spirometry ordered -consult to radio-onc -Upon discharge, Pt will need to follow up with Dr. Shore at [facility] 4 weeks post op -A-fib anticoagulation to be held for 1 week post op, DVT prophylaxis is ok to start #Acute blood loss anemia #upper GI bleed -EGD showing esophageal masses -Protonix 40mg daily -monitor daily CBC, transfuse as needed to keep Hgb > 7 #Atrial fibrillation, rate controlled -Seen on EKG, HR 84. Currently does not take any medications. Remains in rate control. -[id number] 2 indicate 2-5% CVA risk annually. -HAS-BLED to indicate 4.1% risk of bleed. Plan: -Holding anticoagulation due to acute GI bleed with symptomatic anemia and 1 week post op #Type II diabetes- new diagnosis -A1c 6.7 on 08/19/24, No home glycemic control agents, no previous diagnosis of diabetes. Plan: -INSULIN sliding scale with hypoglycemia protocol -Accu-Cheks #Tobacco use disorder -Pt is an active smoker and has 60 packs-year smoking history -nicotine patch ordered #Possible COPD on imaging -Patient had a low-dose CT scan performed as screening for lung cancer due to long history of smoking. -CT scan showed imaging findings potentially concerning for COPD. -Patient denies shortness of breath, cough, wheeze. Lung sounds clear to auscultation bilaterally. Plan: -Follow-up outpatient Health Maintenance Disposition: Medsurg DVT Prophylaxis: none in the setting of recent brain surgery GI Prophylaxis: Pantoprozol-40 PO Qday Diet: dysphagia 1 pureed Lines: Peripheral lines Code status: DNR Assessment and plan discussed with my senior resident Dr. Easley & attending physician Dr. Radha Fery (PGY-1)- Internal medicine resident Attending Provider Attestation/Addendum I have discussed and was present for the essential components of the history, physical examination, diagnosis, and treatment plan with the resident. I agree with the patient's care as documented by the resident and amended herein by me. Jonas Garcia, DO. Patient seen and evaluated this AM. Patient pending placement to ARU, currently on a prednisone taper now status post craniotomy at [facility] for metastatic esophageal adenocarcinoma. Can restart Eliquis in approximately 5 days per neurosurgery and gastroenterology. Will continue to monitor closely, patient is doing well, very hard of hearing and gets agitated easily likely because he cannot hear very well. Will continue to monitor closely while he is here, hopeful discharge tomorrow 09/15 Although this document has been carefully reviewed, there may still be some phonetic and other typographical errors. These errors are purely grammatical due to imperfections in the software program and should not be construed in any way to compromise the substance of the patient's medical care during this visit.
[2024-09-14] MEDS: ACETAMINOPHEN 325 MG TABLET 650 MG PO (17:15)
[2024-09-15] VITALS (9 sets, daily range): BP systolic 99–126; BP diastolic 55–78; PULSE 58–77; RESP 16–18; TEMP 36.2–36.6; O2SAT 97–99; BMI 13.0
[2024-09-15 05:52] LABS: Basophils % (Auto) 0 % (0-2.5); Eosinophils % (Auto) 0 % (0-10); Hematocrit 26.5 % (41.0-53.0); Immature Granulocytes % (Auto) 1 % (0-0); Immature Granulocytes Auto 0.14 Thou/mm3 (0.00-0.00); Lymphocytes # (Auto) 1.3 Thou/mm3 (1.0-4.8); Lymphocytes % (Auto) 7 % (10-50); Mean Corpuscular HGB Conc 30.9 g/dl (31.0-37.0); Mean Corpuscular Hemoglobin 23.4 pg (25.0-35.0); Mean Corpuscular Volume 76 fL (80-100); Monocytes # (Auto) 0.9 Thou/mm3 (0.0-0.8); Monocytes % (Auto) 5 % (0-12); Neutrophils # (Auto) 16.4 Thou/mm3 (1.8-7.7); Neutrophils % (Auto) 87 % (37-80); Nucleated Red Blood Cell % 0 /100 WBC (0); Platelet Count 350 Thou/mm3 (140-440); RDW Standard Deviation 65.1 fL (35.1-43.9); White Blood Count 18.8 Thou/mm3 (3.8-10.6)
[2024-09-15 05:58] LABS: Hemoglobin 8.2 g/dL (13.5-16.0)
[2024-09-15 06:33] LABS: Alanine Aminotransferase < 7 U/L (10-49); Albumin, Serum 3.2 gm/dL (3.4-4.8); Albumin/Globulin Ratio 1.6 (1.2-2.2); Alkaline Phosphatase 76 U/L (46-116); Anion Gap 9 (7-16); BUN/Creatinine Ratio 30 Ratio (12-20); Bilirubin,Total 0.4 mg/dL (0.3-1.2); Blood Urea Nitrogen 24 mg/dL (9-23); Calcium 8.8 mg/dL (8.3-10.6); Calcium (Corrected) 9.4 mg/dL (8.5-10.1); Carbon Dioxide 24.9 mMol/L (20.0-31.0); Chloride 101 mMol/L (98-107); Creatinine (Component) 0.8 mg/dL (0.6-1.3); Estimated Creatinine Clearance 75.7 mL/min (>60); Glucose 176 mg/dL (74-106); Osmolality,Calculated 278 (275-295); Phosphorous 3.2 mg/dL (2.4-5.1); Potassium 3.9 mMol/L (3.4-5.1); Sodium 135 mMol/L (136-145); Total Protein 5.2 gm/dL (5.7-8.2); eGFR > 60 See Note
[2024-09-15 06:51] LABS: Aspartate Amino Transferase < 8 U/L (0-34)
[2024-09-15] MEDS: SODIUM CHLORIDE 1 GM TABLET PO ×3 (08:16→17:55)
[2024-09-15] MEDS: LOSARTAN POTASSIUM 25 MG TABLET 50 MG PO (08:16)
[2024-09-15] MEDS: PANTOPRAZOLE 40 MG TABLET PO (08:17)
[2024-09-15] MEDS: NICOTINE PATCH 21 MG/24 HR PATCH.TD24 TOP (08:17)
[2024-09-15] MEDS: dexAMETHasone 4 MG TABLET PO ×2 (08:17→20:38)
--- NOTE | 2024-09-15 09:13 | PC.SS ---
Addendum entered by Allegra Earzo EXERCISE EQUIPMENT SPECIALIST 09/15/24 17:23: Late entry: met at bed side with patient and family along with medical team to notify the family on current status. Family is aware that we are waiting to hear from insurance if able to give an authorization for the patient to d/c to acute rehab/snf. Other options discussed home health. Family is aware. Currently, the medical aides teacher at [employer] [facility] to review and make that determination. social services coordinator to follow up with [employer] tomorrow morning to gather a response from them. Addendum entered by Allegra Erazo EXERCISE EQUIPMENT SPECIALIST 09/15/24 15:56: SS follow up: spoke with Romana who is aligned with [employer] [facility], informs she will present case to her medical aides teacher to determine if they will give authorization for the patient for rehab vs home health services. Addendum entered by Allegra Erazo EXERCISE EQUIPMENT SPECIALIST 09/15/24 10:58: SS follow up: notified patient's family, discussed d/c options. Informed the insurance will still need to give authorization. Family to discuss and respond with d/c disposition. Addendum entered by JON Dick 09/15/24 10:52: SS update: [facility] has declined to accept the patient. Addendum entered by Allegra Erazo EXERCISE EQUIPMENT SPECIALIST 09/15/24 10:50: SS follow up: Attempted contact with Socorro with admission at [phone] with [facility]. She was unavailable and voicemail was provided. Original Note: SS follow up: Attempted contact with Socorro with admission at [phone] with [facility]. She was unavailable and voicemail was provided.
--- NOTE | 2024-09-15 11:29 | PC.NURSE ---
Md Frey made aware that patient is refusing the administration of insulin, no new orders at this time.
--- NOTE | 2024-09-15 15:20 | ESPR_ITS ---
Documentation for date of: 09/15/24 Subjective Subjective Interval history: Patient was seen and examined at the bedside. He is hard of hearing and reported that he is concerned that his family has not seen him this morning. No other active concerns. No acute overnight events were reported. Blood pressure remained stable. Labs showed uptrending white count likely due to steroids. Hemoglobin stable at 8.2. Chemistry panel was unremarkable. Kidney functions remained stable. Blood glucose was 176. Currently, we contacted the family regarding SNF placement however patient's sister Alexandria has been refusing to take him to SNF as they wanted to take him locally somewhere however patient's insurance only got acceptance from [employer] [employer]. Social workers are working currently with insurance for placement locally otherwise we will meet up with the family and discuss plan for disposition today. Exam Vital Signs Temp Pulse Resp BP Pulse Ox O2 Del Method 97.4 F 70 17 126/62 99 Room Air 09/15/24 12:00 09/15/24 12:00 09/15/24 12:00 09/15/24 12:00 09/15/24 12:00 09/15/24 12:00 Narrative Exam GENERAL: A&Ox3 . Awake, Not in acute distress. Hard of hearing. NEURO: no focal neurological deficits HEENT: Atraumatic, Normocephalic. mucous membranes moist. Eyes open, symmetrical, & clear, incision side on head is clean with bandage HEART: Normal Heart Sounds LUNGS: Clear to auscultation with no wheezing or crackles. ABDOMEN: soft, non-distended, non-tender, bowel sounds heard, no guarding or rebound tenderness SKIN: No Rash or ecchymoses EXTREMITIES: No edema, tenderness, able to move all 4 extremities, pedal pulses palpated Objective Labs 09/16/24 04:52 09/16/24 04:52 Labs: Laboratory Results - last 24 hr 09/15/24 04:33 WBC 18.8 H RBC 3.50 L Hgb 8.2 L Hct 26.5 L MCV 76 L MCH 23.4 L MCHC 30.9 L RDW Std Deviation 65.1 H Plt Count 350 Neut % (Auto) 87 H Lymph % (Auto) 7 L [place] % (Auto) 5 Eos % (Auto) 0 Baso % (Auto) 0 Neut # (Auto) 16.4 H Lymph # (Auto) 1.3 [place] # (Auto) 0.9 H Eos # (Auto) 0.0 Baso # (Auto) 0.0 Immature Gran # (Auto) 0.14 H Absolute Nucleated RBC 0.00 Immature Gran % 1 H Nucleated RBC % 0 Sodium 135 L Potassium 3.9 Chloride 101 Carbon Dioxide 24.9 Anion Gap 9 BUN 24 H Creatinine 0.8 Estim Creat Clear Calc 75.7 eGFR > 60 BUN/Creatinine Ratio 30 H Glucose 176 H Calculated Osmolality 278 Calcium 8.8 Corrected Calcium 9.4 Phosphorus 3.2 Magnesium 2.0 Total Bilirubin 0.4 AST < 8 ALT < 7 L Alkaline Phosphatase 76 Total Protein 5.2 L Albumin 3.2 L Globulin 2.0 L Albumin/Globulin Ratio 1.6 Quality Measures Quality Measures VTE prophylaxis Advance care planning discussed with:: other Assessment & Plan Assessment Current Active Medications: Generic Name Dose Route Start Last Admin Trade Name Freq PRN Reason Stop Dose Admin Acetaminophen 650 mg 09/12/24 15:21 09/14/24 17:15 Acetaminophen 325 Mg Tablet PO 10/12/24 15:20 650 mg Q6H PRN Administration Fever >100.4 or pain Protocol Dexamethasone 4 mg 09/15/24 09:00 09/15/24 08:17 Dexamethasone 4 Mg Tablet PO 09/18/24 08:59 4 mg Q12H ANTONI Administration Dextrose 25 ml 09/13/24 12:11 Dextrose 50%-Water Inj 50 Ml Syringe IV 10/13/24 12:10 Q15MIN PRN BG 50-70 responsive npo pt Dextrose 50 ml 09/13/24 12:11 Dextrose 50%-Water Inj 50 Ml Syringe IV 10/13/24 12:10 Q15MIN PRN BG <50 OR BG <70 & pt unresponsive Glucagon 1 mg 09/13/24 12:11 Glucagon Inj 1 Mg Vial IM Q15MIN PRN BG <70, and no IV access Insulin Human Lispro 0 unit 09/13/24 17:00 09/15/24 11:20 Insulin Lispro (Admelog) 1 Unit/0.01 Ml Unit SC 10/13/24 16:59 Not Given ACHS ANTONI Protocol Losartan Potassium 50 mg 09/12/24 14:00 09/15/24 08:16 Losartan Potassium 25 Mg Tablet PO 10/12/24 13:59 50 mg QDAY ANTONI Administration Nicotine 21 mg 09/13/24 09:00 09/15/24 08:17 Nicotine Patch 21 Mg/24 Hr Patch.Td24 TOP 10/13/24 08:59 21 mg QDAY ANTONI Administration Ondansetron HCl 4 mg 09/12/24 15:21 Ondansetron Inj 2 Mg/Ml Inj 2 Ml IV 10/12/24 15:20 Q6H PRN NAUSEA OR VOMITING Protocol Pantoprazole Sodium 40 mg 09/12/24 14:00 09/15/24 08:17 Pantoprazole 40 Mg Tablet PO 10/12/24 13:59 40 mg QDAY ANTONI Administration Sennosides 1 tab 09/12/24 15:21 09/14/24 11:42 Senna Tablet PO 10/12/24 15:20 1 tab QDAY PRN Administration constipation Protocol Sodium Chloride 1 gm 09/12/24 17:30 09/15/24 12:39 Sodium Chloride 1 Gm Tablet PO 10/12/24 17:29 1 gm TIDWM ANTONI Administration Plan Mr. melchor is a 73 year old male with past medical history significant for bilateral hearing loss, A-fib rate controlled without any medications and anticoagulations presented to [facility] on 09/02/24 after presoncopal episode in the setting acute blood loss anemia. 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 Pt is transfered back from [facility] after neurosurgical intervention. #Esophageal adenocarcinoma, undifferentiated #brain masses #Liver masses -EGD with path reported is evident of esophageal adenocarcinoma -CT of head is event of multiple brain masses with midline shift, pt was transfered to [facility]. -Pt is s/p right occipital and right frontal craniotomy for tumor resection by Dr. Shore on 09/08 -CT abdomen with contrast at [facility] done- showed multiple liver masses, liver triphase CT confirms metastatic liver masses. As well as multiple abnormal lymph nodes throughout retroperitoneum consistent with lymph node metastases. Plan: -Currently waiting discussion with patient's sister regarding disposition to SNF versus home -maintain SBP <160 -avoid hyponatremia (goal 135-145) -decadron taper over a week -pt may showered 48 hrs post op -Incentives spirometry ordered -consult to radio-onc -Upon discharge, Pt will need to follow up with Dr. Shore at [facility] 4 weeks post op -A-fib anticoagulation to be held for 1 week post op, DVT prophylaxis is ok to start #Acute blood loss anemia #upper GI bleed -EGD showing esophageal masses Plan: -Protonix 40mg daily -monitor daily CBC, transfuse as needed to keep Hgb > 7 #Atrial fibrillation, rate controlled -Seen on EKG, HR 84. Currently does not take any medications. Remains in rate control. -[id number] 2 indicate 2-5% CVA risk annually. -HAS-BLED to indicate 4.1% risk of bleed. Plan: -Holding anticoagulation due to acute GI bleed with symptomatic anemia and 1 week post op #Type II diabetes- new diagnosis -A1c 6.7 on 08/19/24, No home glycemic control agents, no previous diagnosis of diabetes. Plan: -INSULIN sliding scale with hypoglycemia protocol -Accu-Cheks #Tobacco use disorder -Pt is an active smoker and has 60 packs-year smoking history -nicotine patch ordered #Possible COPD on imaging -Patient had a low-dose CT scan performed as screening for lung cancer due to long history of smoking. -CT scan showed imaging findings potentially concerning for COPD. -Patient denies shortness of breath, cough, wheeze. Lung sounds clear to auscultation bilaterally. Plan: -Follow-up outpatient Health Maintenance Disposition: [facility]. Currently awaiting discussion with patient's sister in regards to patient's disposition. DVT Prophylaxis: none in the setting of recent brain surgery GI Prophylaxis: Pantoprozol-40 PO Qday Diet: dysphagia 1 pureed Lines: Peripheral lines Code status: DNR Patient was seen and discussed with attending physician, Dr. Kristy Easley MD, PGY 2 Attending Provider Attestation/Addendum I have examined the patient, reviewed labs and imaging findings, discussed the case with the resident(s), and reviewed entered orders. I agree with the plan of care as outlined in this note, with these additional summaries/recommendations: Patient seen at bedside. No acute overnight events. Patient is very hard of hearing and conversation was limited as patient appeared to become frustrated. Patient is currently pending placement before he can be safely discharged. We will continue Decadron taper for cerebral edema and status post right occipital and right frontal craniotomy for tumor resection. Patient will need to follow- up with neurosurgery Dr. Shore at [facility] in 4 weeks once discharged. Per neurology is safe to resume anticoagulation postop 1 week. Patient has atrial fibrillation and currently rate controlled without medications. We will resume anticoagulation when able. Continue salt tablets for cerebral edema. Continue losartan for blood pressure management. Continue insulin sliding scale for new onset diabetes mellitus type 2. technical services coordinator working on placement. Repeat hematology and chemistry panel in AM. Dr. Kristy MD
--- NOTE | 2024-09-15 20:39 | PC.NURSE ---
Pt refused 2100 dose of insulin. Pt stated insulin makes his sugar go up.
[2024-09-16] VITALS (9 sets, daily range): BP systolic 106–126; BP diastolic 57–75; PULSE 65–82; RESP 16–23; TEMP 36.1–37.2; O2SAT 95–98; BMI 21.2
[2024-09-16 06:20] LABS: Basophils % (Auto) 0 % (0-2.5); Eosinophils % (Auto) 0 % (0-10); Hematocrit 26.2 % (41.0-53.0); Hemoglobin 8.1 g/dL (13.5-16.0); Immature Granulocytes % (Auto) 1 % (0-0); Immature Granulocytes Auto 0.15 Thou/mm3 (0.00-0.00); Lymphocytes # (Auto) 1.8 Thou/mm3 (1.0-4.8); Lymphocytes % (Auto) 9 % (10-50); Mean Corpuscular HGB Conc 30.9 g/dl (31.0-37.0); Mean Corpuscular Hemoglobin 23.6 pg (25.0-35.0); Mean Corpuscular Volume 76 fL (80-100); Monocytes # (Auto) 1.6 Thou/mm3 (0.0-0.8); Monocytes % (Auto) 7 % (0-12); Neutrophils # (Auto) 17.7 Thou/mm3 (1.8-7.7); Neutrophils % (Auto) 83 % (37-80); Nucleated Red Blood Cell % 0 /100 WBC (0); Platelet Count 410 Thou/mm3 (140-440); RDW Standard Deviation 66.5 fL (35.1-43.9); Red Blood Count 3.43 Miln/mm3 (4.50-5.90); White Blood Count 21.3 Thou/mm3 (3.8-10.6)
[2024-09-16 07:16] LABS: Alanine Aminotransferase < 7 U/L (10-49); Albumin/Globulin Ratio 1.5 (1.2-2.2); Alkaline Phosphatase 75 U/L (46-116); Anion Gap 8 (7-16); Aspartate Amino Transferase < 8 U/L (0-34); BUN/Creatinine Ratio 30 Ratio (12-20); Bilirubin,Total 0.4 mg/dL (0.3-1.2); Blood Urea Nitrogen 24 mg/dL (9-23); Calcium 8.7 mg/dL (8.3-10.6); Calcium (Corrected) 9.5 mg/dL (8.5-10.1); Carbon Dioxide 25.8 mMol/L (20.0-31.0); Chloride 101 mMol/L (98-107); Creatinine (Component) 0.8 mg/dL (0.6-1.3); Estimated Creatinine Clearance 75.7 mL/min (>60); Glucose 157 mg/dL (74-106); Osmolality,Calculated 277 (275-295); Phosphorous 3.1 mg/dL (2.4-5.1); Potassium 3.8 mMol/L (3.4-5.1); Sodium 135 mMol/L (136-145); eGFR > 60 See Note
[2024-09-16] MEDS: PANTOPRAZOLE 40 MG TABLET PO (08:02)
[2024-09-16] MEDS: NICOTINE PATCH 21 MG/24 HR PATCH.TD24 TOP (08:02)
[2024-09-16] MEDS: LOSARTAN POTASSIUM 25 MG TABLET 50 MG PO (08:03)
[2024-09-16] MEDS: SODIUM CHLORIDE 1 GM TABLET PO ×2 (08:03→17:52)
--- NOTE | 2024-09-16 09:05 | PC.SS ---
Addendum entered by Dorothea Mendoza 09/16/24 09:05: no answer, vm left Original Note: - attempted to contact Romana with [employer] [phone]
--- NOTE | 2024-09-16 09:15 | PC.SS ---
Addendum entered by Dorothea Mendoza 09/16/24 13:32: SS contacted pt sister Alexandria, in regards to choice for facility. Per Alexandria, Ankit is going to tour the facilities today after work an they will SS know what they decide. SS informed Alexandria due to pt requiring auth we would like to ensure they are aware by the end of the day as we are headed into the weekend. Alexandria expressed frustration, stating why are you being so pushy, we are trying to find him a place to go. SS expressed understanding and informed her we are just trying to make this a smooth transition and due to the pt being medically clear we do not want to run into issues with auth not being granted due to waiting to long. SS explained SS meets with Team at 2pm and will give her an update when done Original Note: SS spoke to Romana with [facility], Dr. Hammer granted part A services for SNF. SS contacted pt sister Alexandria, to provide gher with update. SS gave options for SNF Accepted: [facility], [facility], [facility], [facility] and Considering: [facility]. Per Alexandria, she we will speak to Christopher in let SS know their choice.
[2024-09-16] MEDS: dexAMETHasone 1 MG TABLET 2 MG PO ×2 (10:39→20:17)
[2024-09-16] MEDS: SENNA TABLET 1 TAB PO ×2 (10:44→17:52)
--- NOTE | 2024-09-16 14:56 | PC.SS ---
SS spoke to pt sister, Alexandria in regards to pt being medically cleared. Per Alexandria they have not made a decision. SS provided Alexandria with IMM via phone. SS informed Alexandria if they wish they can appeal the DC as the pt is medically cleared. Per [place] Ankit is touring [facility] and they will call back let us know.
--- NOTE | 2024-09-16 15:29 | PC.SS ---
Addendum entered by Eva Laura 09/16/24 15:57: SS spoke to Hazel from [employer] who is aware [facility] has accepted. SS has scheduled transportation with Merlene from [facility] phone#[phone] for 6;30pm to [facility]. SS has sent [facility] through file exchange. Original Note: SS recieved call from patient's son, Ankit who is requesting [facility], [facility]. SS has spoken to Jocelyne from [facility] and they will accept pt. SS has informed Ankit [employer] does not cover transportation to SNF. Beth states he was unaware and is unable to pay privately for transport. SS attempted to call [employer] for insurance authorization but was only able to leave voicemail with contact information.
--- NOTE | 2024-09-16 16:12 | PD.RESDS ---
Planned Discharge Date 09/16/24 DS: Providers Provider Date of admission: 09/12/24 12:24 Primary care physician: Physician No Primary/Family Admitting Provider: Efraín Garcia DO Attending Provider on Admission: Lewis Wagner MD Consults: 09/12/24 13:39 Referral Registered Dietitian Routine Comment: 09/12/24 15:26 Referral Physical Therapy Routine Comment: Physician Instructions: Attending Provider on DC: Lewis Wagner MD Discharging Provider: Lewis Wagner MD DS: Diagnosis Problem List Completed Was Problem List Reviewed/Reconciled?: Yes Hospital Course Hospital Course Hospital course: Summary: This s a 73 year old male with past medical history significant for bilateral hearing loss, A-fib rate controlled without any medications and anticoagulations presented to [facility] on 09/02/24 after presoncopal episode in the setting acute blood loss anemia. Pt underwent EGD which showed malignant esophageal tumor in the lower third of esophagus, pathology report was evident of well differentiated invasive adenocarcinoma. On 09/06/24 rapid response was called due to pt's altered mental status and facial asymmetry subsequently stroke alert was called CT head showed Multiple tumor masses in the right cerebral hemisphere, Right frontal hyperdense pneumonitis 18 mm with prominent surrounding edema, Right occipital lobe tumor mass 4.5 cm with surrounding edema, Suspicious for soft tissue tumor mass right basal ganglia 3 cm, Severe mass effect, shift of the frontal horns to the left 10 mm Significant edema in the temporal lobe. Stat neurosurgery transfer was initiated, Pt was transfered to [facility] on 09/06/24. Pt underwent neurosurgical intervention on 09/08/25 and is transfered back from [facility] on 09/12/24. Patient was transferred back to our facility after right frontal craniotomy for tumor resection by Dr. Shore on 09/08. CT abdomen with contrast was done at [facility] which showed multiple liver masses, liver triphasic CT confirmed metastatic liver masses. Additionally, multiple abdominal lymph nodes throughout retroperitoneum consistent with lymph node metastatic. Patient was restarted on Decadron taper over a week, incentive spirometer was given. PT evaluated the patient and recommended SNF for acute rehab. Patient would need to follow-up with Dr. Shore at [facility] 4 weeks postoperatively. GI specialist recommended to restart Eliquis after a week postoperatively. Protonix was continued for GI bleed. Patient is discharged to [facility] nursing facility. He was medically stable at the time of discharge. DC instructions Take dexamethasone 2 mg q12h for next 3 days Take losartan 50 mg once daily and hold if blood pressure drops below 90/60 Take Protonix 40 mg once daily Take salt tablets 1 g 3 times daily Take metformin 500 mg twice daily daily Eliquis was held for a week and to be restarted at SNF tomorrow on 09/18/24 Upon discharge, Pt will need to follow up with Dr. Shore at [facility] 4 weeks post op Follow-up with PCP as outpatient within 2 weeks In case of emergency, call 911 or come back to the ED #Problem list: #Esophageal adenocarcinoma, undifferentiated #brain masses #S/p right frontal craniotomy for brain mass resection #Liver masses #Acute blood loss anemia #upper GI bleed due to esophageal adenocarcinoma #Atrial fibrillation, rate controlled #Type II diabetes- new diagnosis #Tobacco use disorder # COPD Patient was seen and discussed with attending physician, Dr. Kristy Easley MD, PGY 2 Time Spent with Patient Time attestation: Total time spent providing and/or coordinating discharge services: Exam Vital Signs Temp Pulse Resp BP Pulse Ox O2 Del Method 98.1 F 76 16 126/66 98 Room Air 09/16/24 16:00 09/16/24 16:00 09/16/24 16:00 09/16/24 16:00 09/16/24 16:00 09/16/24 16:00 Narrative Exam GENERAL: A&Ox3 . Awake, Not in acute distress. Hard of hearing. NEURO: no focal neurological deficits HEENT: Atraumatic, Normocephalic. mucous membranes moist. Eyes open, symmetrical, & clear, incision side on head is clean with bandage HEART: Normal Heart Sounds LUNGS: Clear to auscultation with no wheezing or crackles. ABDOMEN: soft, non-distended, non-tender, bowel sounds heard, no guarding or rebound tenderness SKIN: No Rash or ecchymoses EXTREMITIES: No edema, tenderness, able to move all 4 extremities, pedal pulses palpated Discharge Plan Plan Patient Disposition: Xfer Skilled Nsg Fac (SNF) Care Plan Goals: Take dexamethasone 2 mg q12h for next 3 days Take losartan 50 mg once daily and hold if blood pressure drops below 90/60 Take Protonix 40 mg once daily Take salt tablets 1 g 3 times daily Take metformin 500 mg twice daily daily Held Eliquis for a week and can restart it tomorrow on 09/18/24 at [facility] Upon discharge, Pt will need to follow up with Dr. Shore at [facility] 4 weeks post op Follow-up with PCP as outpatient within 2 weeks In case of emergency, call 911 or come back to the ED Prescriptions/Referrals Prescriptions/Med Rec: New losartan 50 mg tablet 50 mg PO QDAY Qty: 90 0RF pantoprazole 40 mg tablet,delayed release (DR/EC) 40 mg PO QDAY Qty: 90 0RF sodium chloride 1,000 mg Tablet,Soluble 1,000 mg PO TIDWM Qty: 90 0RF polyethylene glycol 3350 [Miralax] 17 gram powder in packet 17 g PO QDAY Qty: 30 0RF sennosides [senna] 8.6 mg tablet 8.6 mg PO QDAY PRN (Reason: constipation) Qty: 60 0RF Eliquis 5 mg tablet 5 mg PO BID Qty: 30 0RF Rx Instructions: Start the medication on 09/17/24 Continued simethicone 80 mg Tablet,Chewable 80 mg PO QID PRN (Reason: Gas) Qty: 30 0RF metformin 500 mg tablet 500 mg PO BID Qty: 60 0RF (DME) blood-glucose meter Kit See Rx Instructions .Route Qty: 1 0RF Rx Instructions: As directed to check blood sugar daily (DME) Blood Glucose Test Strip See Rx Instructions .Route Qty: 50 2RF Rx Instructions: As directed to check blood sugar daily (DME) Comfort Touch Ult Thin Lancets 31 gauge misc See Rx Instructions .Route Qty: 100 2RF Rx Instructions: As directed to check blood sugar daily nicotine 21 mg/24 hr Patch 24 Hour 21 mg top QDAY Qty: 14 0RF Discontinued pantoprazole [Protonix] 40 mg tablet,delayed release (DR/EC) 40 mg PO BID Qty: 60 0RF Referrals: No Primary/Family,Physician [Primary Care Provider] - Patient/Caregiver Discharge Instructions Print Language: Slovak Stand Alone Forms: Jodie Award Info., Patient Portal Info Letter Discharge Order Discharge Orders: Discharge (Routine); Ordered 09/16/24 Ordered By: Lisandra Humphreys Quality Discharge Quality Measures VTE prophylaxis Attestestation MD Attestation I have examined the patient, reviewed labs and imaging findings, discussed the case with the resident(s), and reviewed entered orders. I agree with the plan of care as outlined in this note. Dr. Kristy MD
--- NOTE | 2024-09-16 16:29 | PC.SS ---
SS has confirmed transport time for 6:45pm to [place] with Fatou from [facility].
--- NOTE | 2024-09-16 16:34 | PC.SS ---
SS attempted to contact Jimmy 2 x but was unsuccessful. SS has spoken to [place] patient's dtr who is aware of transportation time of 6:45 to [facility]. SS has confirmed with Hazel from [facility] they are providing authorization to [facility].
[2024-09-16] MEDS: POLYETHYLENE GLYCOL 17 GM PACKET PO (17:52)
[2024-09-16] MEDS: GLYCERIN, ADULT 1 EA SUPP 1 EACH PR (17:54)
--- NOTE | 2024-09-16 18:38 | PC.NURSE ---
Md been notified thaT pt. didnoit have a bowel moment and cannot send a pt. without A BOWEL MOVEMENT TO snf. pER md WILL HOLD PT. ONE ONE NIGHT UNTIL HE HAD A BOWEL MOMENT.
--- NOTE | 2024-09-16 18:57 | PC.NURSE ---
CALLED [facility] AND LEFT MESSAGE TO CANCEL TRANSPORTATION
[2024-09-16] MEDS: ACETAMINOPHEN 325 MG TABLET 650 MG PO (20:17)
[2024-09-16] MEDS: INSULIN LISPRO (AdmeLOG) 1 UNIT/0.01 ML UNIT SC (20:31)
--- NOTE | 2024-09-16 23:14 | PC.NURSE ---
notified Dr. Jacome of patient having pain in his lower back and abdomen 5/10 pain and requesting for some tylenol, patient given tylenol at 2017 this evening, per MD will look into patient's chart.
[2024-09-16] MEDS: HYDROcodone/APAP 5/325 TABLET 1 TAB PO (23:21)
[2024-09-17] VITALS (7 sets, daily range): BP systolic 100–110; BP diastolic 60–78; PULSE 70–82; RESP 17–23; TEMP 36.1–36.3; O2SAT 97–98
[2024-09-17 06:04] LABS: Basophils % (Auto) 0 % (0-2.5); Eosinophils # (Auto) 0.1 Thou/mm3 (0.0-0.5); Eosinophils % (Auto) 1 % (0-10); Hematocrit 27.1 % (41.0-53.0); Immature Granulocytes % (Auto) 1 % (0-0); Immature Granulocytes Auto 0.14 Thou/mm3 (0.00-0.00); Lymphocytes # (Auto) 1.5 Thou/mm3 (1.0-4.8); Lymphocytes % (Auto) 8 % (10-50); Mean Corpuscular Hemoglobin 23.4 pg (25.0-35.0); Mean Corpuscular Volume 76 fL (80-100); Monocytes # (Auto) 1.3 Thou/mm3 (0.0-0.8); Monocytes % (Auto) 7 % (0-12); Neutrophils # (Auto) 15.5 Thou/mm3 (1.8-7.7); Neutrophils % (Auto) 84 % (37-80); Nucleated Red Blood Cell % 0 /100 WBC (0); Platelet Count 384 Thou/mm3 (140-440); RDW Standard Deviation 64.6 fL (35.1-43.9); Red Blood Count 3.59 Miln/mm3 (4.50-5.90); White Blood Count 18.5 Thou/mm3 (3.8-10.6)
[2024-09-17 06:13] LABS: Hemoglobin 8.4 g/dL (13.5-16.0)
[2024-09-17 06:53] LABS: Alanine Aminotransferase 8 U/L (10-49); Albumin, Serum 3.2 gm/dL (3.4-4.8); Albumin/Globulin Ratio 1.7 (1.2-2.2); Alkaline Phosphatase 77 U/L (46-116); Anion Gap 8 (7-16); Aspartate Amino Transferase < 10 U/L (0-34); BUN/Creatinine Ratio 34 Ratio (12-20); Bilirubin,Total 0.3 mg/dL (0.3-1.2); Blood Urea Nitrogen 27 mg/dL (9-23); Calcium 8.7 mg/dL (8.3-10.6); Calcium (Corrected) 9.3 mg/dL (8.5-10.1); Chloride 101 mMol/L (98-107); Creatinine (Component) 0.8 mg/dL (0.6-1.3); Estimated Creatinine Clearance 75.7 mL/min (>60); Globulin 1.9 gm/dL (2.3-3.5); Glucose 169 mg/dL (74-106); Osmolality,Calculated 279 (275-295); Phosphorous 3.2 mg/dL (2.4-5.1); Potassium 4.2 mMol/L (3.4-5.1); Sodium 135 mMol/L (136-145); Total Protein 5.1 gm/dL (5.7-8.2); eGFR > 60 See Note
--- NOTE | 2024-09-17 08:31 | PC.SS ---
SS spoke to Dr. Easley in regards to pt failed DC, per Dr. Easley pt had not had a BM in which transport was cancelled with [facility]. Per Dr. Easley pt has had a BM and cleared for DC to [facility]. SS called [facility] and set up for transport SS spoke to Joan. SS pending ETA. RNWei made aware
[2024-09-17] MEDS: SODIUM CHLORIDE 1 GM TABLET PO (08:45)
[2024-09-17] MEDS: NICOTINE PATCH 21 MG/24 HR PATCH.TD24 TOP (08:45)
[2024-09-17] MEDS: PANTOPRAZOLE 40 MG TABLET PO (08:45)
[2024-09-17] MEDS: dexAMETHasone 1 MG TABLET 2 MG PO (08:49)
--- NOTE | 2024-09-17 08:55 | ESDS_ITS ---
<Statement entered by Ck Tellez MD - 09/17/24 18:18> I have examined the patient, reviewed labs and imaging findings, discussed the case with the resident(s), and reviewed entered orders. I agree with the plan of care as outlined in this note. Ck Tellez MD Addendum Discharge Addendum Date of report being addended: 09/17/24 Narrative: Patient was discharged yesterday on 09/16/2024 however he denied having a bowel movement from last 4 days and was given MiraLAX and senna/bowel regimen after which he reported later at night therefore he stayed 1 more night. This morning, patient was seen and examined at the bedside. He was afebrile and vitals were stable. Labs were showing leukocytosis likely due to steroids, hemoglobin was stable. Patient is medically stable to be discharged to SNF. Recommended to restart Eliquis 5 mg 2 times daily tomorrow morning at SNF. Patient was seen and discussed with attending physician, Dr. Geoff Easley MD, PGY 2
--- NOTE | 2024-09-17 13:28 | PC.NURSE ---
RN called [facility] to give report. Report given to Marjorie. ETA for transportation is [id number].
--- NOTE | 2024-09-17 14:36 | PC.SS ---
SS set up transport with [facility], ETA [id number]. Ankit made aware. Packet on chart. Pt DC to [facility]. Mary at [facility] also updated.
== END 2024-09-17 17:47 | disposition skilled nursing facility (03) | DRG 375 ==
PROVIDERS: Student in an Organized Health Care Education/Training Program; Admitting Provider Student in an Organized Health Care Education/Training Program; Visit Provider Student in an Organized Health Care Education/Training Program
DX: C15.9 Malignant neoplasm of esophagus, unspecified (principal); C77.9 Secondary and unspecified malignant neoplasm of lymph node, unspecified; K92.2 Gastrointestinal hemorrhage, unspecified; D62 Acute posthemorrhagic anemia; C79.31 Secondary malignant neoplasm of brain; E11.9 Type 2 diabetes mellitus without complications; D72.829 Elevated white blood cell count, unspecified; H91.93 Unspecified hearing loss, bilateral; J44.9 Chronic obstructive pulmonary disease, unspecified; I48.91 Unspecified atrial fibrillation; F17.200 Nicotine dependence, unspecified, uncomplicated; R16.0 Hepatomegaly, not elsewhere classified; Z66 Do not resuscitate; T38.0X5A Adverse effect of glucocorticoids and synthetic analogues, initial encounter; Z98.890 Other specified postprocedural states
CPT/HCPCS: 36415; 80053; 83735; 84100; 85025; 85610; 85730; 87081; 94664; 97162; J1815; J8540; A9270

== ENCOUNTER 2024-09-21 15:31 | Inpatient (IN) | payer OTHER, MEDICARE, SELFPAY ==
[2024-09-21] VITALS (15 sets, daily range): BP systolic 90–120; BP diastolic 50–78; PULSE 70–84; RESP 14–20; TEMP 36.4–37.2; O2SAT 95–100; BMI 22.7
--- NOTE | 2024-09-21 15:49 | PC.NURSE ---
Patient is alert and oriented, hard of hearing, patient does not want an IV placed or refusing blood work. Is agreeable to do CT scan. Patient pending MD laura.
--- NOTE | 2024-09-21 16:34 | PD.EDADULT ---
ED General RME/HPI General Chief complaint: General Adult/Misc Complain Stated complaint: CRITICAL LABWORK Time Seen by Provider: 09/21/24 16:29 Arrival date/time: 09/21/24 15:31 RME / HPI RME / HPI narrative: 73-year-old male patient with recent diagnosis of distal esophagus adenocarcinoma, with mets to the brain, status post craniectomy, excision of the tumor, that was done 13 days ago, and after 3 days in [facility] patient was brought back to us for further management. Patient was transferred to SNF 5 days ago. While in the facility, patient was noted to have black tarry stool, and hypotensive and anemic. On my initial evaluation patient was noted to have blood pressure of 80 systolic. Patient is denying any abdominal pain. Denies any headache denies any complaints except for generalized body weakness. Patient is not taking any blood thinner. Related Data Previous Rx's ?Medication ?Instructions ?Recorded simethicone 80 mg chewable tablet 80 mg PO QID PRN Gas #30 tabs 09/05/24 blood sugar diagnostic (Blood #50 ea 09/06/24 Glucose Test strips) blood-glucose meter #1 ea 09/06/24 lancets 31 gauge (Comfort Touch #100 ea 09/06/24 Ultra Thin Lancets) metformin 500 mg tablet 500 mg PO BID #60 tabs 09/06/24 losartan 50 mg tablet 50 mg PO QDAY #90 tabs 09/13/24 nicotine 21 mg/24 hr daily 21 mg top QDAY #14 ea 09/13/24 transdermal patch pantoprazole 40 mg tablet,delayed 40 mg PO QDAY #90 tabs 09/13/24 release sodium chloride 1,000 mg soluble 1,000 mg PO TIDWM #90 tabs 09/13/24 tablet apixaban 5 mg tablet (Eliquis) 5 mg PO BID #30 tabs 09/17/24 polyethylene glycol 3350 17 gram 17 g PO QDAY #30 ea 09/17/24 oral powder packet (Miralax) sennosides 8.6 mg tablet (senna) 8.6 mg PO QDAY PRN constipation 09/17/24 #60 tabs Allergies Allergy/AdvReac Type Severity Reaction Status Date / Time No Known Allergies Allergy Verified 09/02/24 20:46 Review of Systems Review of Systems Narrative Review of Systems: Review of system reviewed and within normal limits except mentioned in HPI ED Exam Narrative Physical exam: VITAL SIGNS: Reviewed. GENERAL APPEARANCE: Alert and interactive, follows commands, no acute distress, HEAD AND FACE: Non-traumatic. ENT: PERRL, pale conjunctiva, eyelid no trauma, Mucous membrane moist. NECK: Supple, nontender, no nuchal rigidity. CHEST: No tenderness, no crepitus, no paradoxical movement, no retractions. LUNGS: Clear, well ventilated, symmetric, no rales, no wheezing, no ronchi, no stridor, good breath sounds bilaterally. HEART: Regular rate, regular rhythm, no murmur, no gallops. ABDOMEN: Soft, positive bowel sounds, nondistended, no guarding, nontender, no rebound, no masses, RECTAL: Deferred. GENITAL: Deferred. NEUROLOGICAL: Gross motor function intact sensory function intact, Appropriate for age. MUSCULOSKELETAL: low back nontender, full range of motion. EXTREMITIES: Nontender, full range of motion. SKIN: Color pale, dry, no rash, no lacerations, no abrasions, no contusions. LYMPHATICS: Deferred. Course Quality Measures none Orders Category Date Time Status Patient Condition Routine Admission 09/21/24 21:[address] in Observation Status Routine Admission 09/21/24 21:27 Active Bedrest NOW Care 09/21/24 21:28 Active Bedside Blood Glucose AC Care 09/21/24 21:32 Active COVID-19 Screening Questionnaire NOW Care 09/21/24 19:43 Active Decision to Admit X1 Care 09/21/24 19:43 Completed Notify provider NEEDED Care 09/21/24 21:20 Active Nurse Swallow Screen X1 Care 09/21/24 21:32 Active Obtain weight X1 Care 09/21/24 21:27 Active Occult Blood,Stool (Nursing) ONCE Care 09/21/24 16:33 Active Sequential Compression Device QSHIFT Care 09/21/24 21:32 Active Transfuse,blood/blood products ONCE Care 09/21/24 16:33 Active Vital Signs, Non-Routine Q4H Care 09/21/24 21:30 Ordered Consult to Gastroenterology Stat Cons 09/21/24 18:45 Ordered CBC AM DRAW Lab 09/22/24 05:00 Ordered CBC AM DRAW Lab 09/23/24 05:00 Ordered CBC AM DRAW Lab 09/24/24 05:00 Ordered CBC Stat Lab 09/21/24 17:35 Completed Comprehensive Metabolic Panel AM DRAW Lab 09/22/24 05:00 Ordered Comprehensive Metabolic Panel AM DRAW Lab 09/23/24 05:00 Ordered Comprehensive Metabolic Panel AM DRAW Lab 09/24/24 05:00 Ordered Comprehensive Metabolic Panel Stat Lab 09/21/24 17:35 Completed Iron Panel Routine Lab 09/22/24 05:00 Ordered Magnesium AM DRAW Lab 09/22/24 05:00 Ordered Magnesium AM DRAW Lab 09/23/24 05:00 Ordered Magnesium AM DRAW Lab 09/24/24 05:00 Ordered Partial Thromboplastin Time AM DRAW Lab 09/22/24 05:00 Ordered Path Review Blood Smear Routine Lab 09/22/24 05:00 Ordered Phosphorous AM DRAW Lab 09/22/24 05:00 Ordered Phosphorous AM DRAW Lab 09/23/24 05:00 Ordered Phosphorous AM DRAW Lab 09/24/24 05:00 Ordered Prothrombin Time with INR AM DRAW Lab 09/22/24 05:00 Ordered Prothrombin Time with INR Stat Lab 09/21/24 17:35 Completed Red Blood Cells Stat Lab 09/21/24 17:35 Results Reticulocyte Count Routine Lab 09/22/24 05:00 Ordered Type and Screen Stat Lab 09/21/24 17:35 Results Urinalysis Stat Lab 09/21/24 16:33 Ordered Dextrose 50% Syr [D50w Syringe Abboject] Med 09/21/24 21:32 Active 25 ml IV Q15MIN PRN Dextrose 50% Syr [D50w Syringe Abboject] Med 09/21/24 21:32 Active 50 ml IV Q15MIN PRN Glucagon Inj Med 09/21/24 21:32 Active 1 mg IM Q15MIN PRN INSULIN LISPRO (AdmeLOG) [HumaLOG] Med 09/22/24 07:30 Active See Protocol SC AC Ondansetron Inj [Zofran Inj] Med 09/21/24 21:27 Active 4 mg IV Q6H PRN Pantoprazole Inj [Protonix Inj] Med 09/22/24 09:00 Active 40 mg IVP Q12HR Pantoprazole Inj [Protonix Inj] Med 09/21/24 17:30 Discontinued 80 mg IV X1 ONE Sodium Chloride 0.9% 1000 ml [Ns] 1,000 ml Med 09/21/24 17:29 Discontinued IV 999 mls/hr Code Status Routine Oth 09/21/24 21:20 Ordered Vital Signs Vital signs: Vital Signs Temperature 97.5 F 09/21/24 15:40 Pulse Rate 70 09/21/24 15:40 Respiratory Rate 20 09/21/24 15:40 Blood Pressure 103/66 09/21/24 15:40 Pulse Oximetry (%) 100 09/21/24 15:40 Oxygen Delivery Method Nasal Cannula 09/21/24 15:40 Oxygen Flow Rate 3 09/21/24 15:40 [facility] Patient data External records reviewed:: None Clinical information provided by:: none Social determinants that could affect healthcare access:: none Patient has the following chronic illnesses:: Adenocarcinoma of the esophagus, status post craniectomy for brain mets, upper GI bleed, anemia How is presenting disease/condition affected by chronic disease/condition?: exacerbated by Evaluation data The following diagnostics were reviewed and interpreted by me:: lab results Lab and/or radiology exams considered but not ordered:: None Interpretation Summary: See results in [facility] Medications Medications considered but not ordered:: None Medication administrations:: Medication Administration History Dextrose (Dextrose 50%-Water Inj 50 Ml Syringe) 25 ml IV Q15MIN PRN PRN Reason: BG 50-70 responsive npo pt Stop: 10/21/24 21:31 Dextrose (Dextrose 50%-Water Inj 50 Ml Syringe) 50 ml IV Q15MIN PRN PRN Reason: BG <50 OR BG <70 & pt unresponsive Stop: 10/21/24 21:31 Glucagon (Glucagon Inj 1 Mg Vial) 1 mg IM Q15MIN PRN PRN Reason: BG <70, and no IV access Insulin Human Lispro (Insulin Lispro (Admelog) 1 Unit/0.01 Ml Unit) 0 unit SC AC ANTONI; Protocol Stop: 10/22/24 07:29 Ondansetron HCl (Ondansetron Inj 2 Mg/Ml Inj 2 Ml) 4 mg IV Q6H PRN; Protocol PRN Reason: NAUSEA OR VOMITING Stop: 10/21/24 21:26 Pantoprazole Sodium (Pantoprazole Inj 40 Mg Vial) 40 mg IVP Q12HR ANTONI Stop: 10/22/24 08:59 Discontinued Medications Sodium Chloride (Ns) 1,000 mls @ 999 mls/hr IV .Q1H1M ONE Stop: 09/21/24 18:29 Last Infusion: 09/21/24 19:22 Dose: Infused Documented By: Admin: 09/21/24 17:30 Dose: 999 mls/hr Documented By: NICOLAS Comments: no scanner available Pantoprazole Sodium (Pantoprazole Inj 40 Mg Vial) 80 mg IV X1 ONE Stop: 09/21/24 17:31 Last Admin: 09/21/24 17:36 Dose: 80 mg Documented By: NICOLAS IV Protonix, IV fluids for hydration and 2 units packed RBC Consultations Consultation(s) initiated? (list below): No Diagnosis Differential Diagnosis ED Complaint MDM: Upper GI bleed, anemia, history of adenocarcinoma of the esophagus Most likely diagnosis given after review of the tests above:: Upper GI bleed, anemia Admission Indicated Admission indicated?: indicated Explain why admission is indicated or not indicated:: Patient is to be admitted for further management Admission Request Was there a request for admission?: No Disposition Plan Disposition Plan: Admit Medical Decision Making MDM Narrative MDM Narrative: 73-year-old male patient was brought in from group home for evaluation regarding hypotension and anemia. Patient is hard of hearing, is hard to communicate, told me that was shipped here because of low blood pressure and anemia. Patient is denying any vomiting blood or blood in the stool. Patient is not having any abdominal pain no chest pain no headache no other complaints noted. Patient is taking Eliquis. History of tumor with mets to the brain. History of diabetes mellitus. Rectal exam showed black tarry stool. Patient's hemoglobin was noted to be 6.3 hematocrit of 20.6. Leukocytosis of 18.8. Patient received 2 units of packed RBC. Was also given 1 L of IV fluids. Consulted Dr. Rapp, family support specialist, who advised me to keep the patient for further management. Differential Diagnosis Differential Diagnosis: Upper GI bleed, anemia, history of adenocarcinoma of the esophagus Lab Data 09/21/24 17:35 09/21/24 17:35 Labs: Lab Results 09/21/24 Range/Units 17:35 WBC 18.8 H (3.8-10.6) Thou/mm3 RBC 2.71 L (4.50-5.90) Miln/mm3 Hgb 6.3 L* D (13.5-16.0) g/dL Hct 20.6 L* (41.0-53.0) % MCV 76 L (80-100) fL MCH 23.2 L (25.0-35.0) pg MCHC 30.6 L (31.0-37.0) g/dl RDW Std Deviation 64.7 H (35.1-43.9) fL Plt Count 311 D (140-440) Thou/mm3 Neut % (Auto) 81 H (37-80) % Lymph % (Auto) 11 (10-50) % Scurry % (Auto) 6 (0-12) % Eos % (Auto) 0 (0-10) % Baso % (Auto) 0 (0-2.5) % Neut # (Auto) 15.3 H (1.8-7.7) Thou/mm3 Lymph # (Auto) 2.1 (1.0-4.8) Thou/mm3 Scurry # (Auto) 1.2 H (0.0-0.8) Thou/mm3 Eos # (Auto) 0.0 (0.0-0.5) Thou/mm3 Baso # (Auto) 0.0 (0.0-0.2) Thou/mm3 Immature Gran # (Auto) 0.21 H (0.00-0.00) Thou/mm3 Absolute Nucleated RBC 0.00 (0.00-0.00) Thou/mm3 Immature Gran % 1 H (0-0) % Nucleated RBC % 0 (0) /100 WBC PT 11.5 (9.0-12.2) Seconds INR 1.1 (0.9-1.3) Sodium 136 (136-145) mMol/L Potassium 4.5 (3.4-5.1) mMol/L Chloride 104 (98-107) mMol/L Carbon Dioxide 21.3 (20.0-31.0) mMol/L Anion Gap 11 (7-16) BUN 49 H (9-23) mg/dL Creatinine 0.8 (0.6-1.3) mg/dL Estim Creat Clear Calc 76.5 (>60) mL/min eGFR > 60 (60 - ) See Note BUN/Creatinine Ratio 61 H (12-20) Ratio Glucose 146 H (74-106) mg/dL Calculated Osmolality 287 (275-295) Calcium 9.2 (8.3-10.6) mg/dL Corrected Calcium 10.0 (8.5-10.1) mg/dL Total Bilirubin 0.2 L (0.3-1.2) mg/dL AST 11 (0-34) U/L ALT 8 L (10-49) U/L Alkaline Phosphatase 71 (46-116) U/L Total Protein 4.9 L (5.7-8.2) gm/dL Albumin 3.0 L (3.4-4.8) gm/dL Globulin 1.9 L (2.3-3.5) gm/dL Albumin/Globulin Ratio 1.6 (1.2-2.2) Blood Type O Positive Antibody Screen NEGATIVE Crossmatch See Detail Blood Bank Wristband ID Yes Discharge Plan Plan Patient Disposition: Admit Acute Care w/in Hospital Prescriptions/Referrals Prescriptions/Med Rec: No Action simethicone 80 mg Tablet,Chewable 80 mg PO QID PRN (Reason: Gas) Qty: 30 0RF metformin 500 mg tablet 500 mg PO BID Qty: 60 0RF (DME) blood-glucose meter Kit See Rx Instructions .Route Qty: 1 0RF Rx Instructions: As directed to check blood sugar daily (DME) Blood Glucose Test Strip See Rx Instructions .Route Qty: 50 2RF Rx Instructions: As directed to check blood sugar daily (DME) Comfort Touch Ult Thin Lancets 31 gauge misc See Rx Instructions .Route Qty: 100 2RF Rx Instructions: As directed to check blood sugar daily losartan 50 mg tablet 50 mg PO QDAY Qty: 90 0RF pantoprazole 40 mg tablet,delayed release (DR/EC) 40 mg PO QDAY Qty: 90 0RF sodium chloride 1,000 mg Tablet,Soluble 1,000 mg PO TIDWM Qty: 90 0RF nicotine 21 mg/24 hr Patch 24 Hour 21 mg top QDAY Qty: 14 0RF polyethylene glycol 3350 [Miralax] 17 gram powder in packet 17 g PO QDAY Qty: 30 0RF sennosides [senna] 8.6 mg tablet 8.6 mg PO QDAY PRN (Reason: constipation) Qty: 60 0RF Eliquis 5 mg tablet 5 mg PO BID Qty: 30 0RF Rx Instructions: Start the medication on 09/17/24 Referrals: Magno Hammer MD [Primary Care Provider] - In 1 week Problem List Clinical Impression: Anemia, Acute upper GI bleed Patient/Caregiver Discharge Instructions Print Language: Tristanian Stand Alone Forms: Jodie Award Info., Patient Portal Info Letter
--- NOTE | 2024-09-21 16:51 | PC.NURSE ---
pt refusing any and all care, iv, blood transfusion, warned of all risk including up to .
--- NOTE | 2024-09-21 16:52 | PC.NURSE ---
son in room talking to pt
--- NOTE | 2024-09-21 17:24 | PC.NURSE ---
pt agreed to blood son signed consent pt is very hard hearing
--- NOTE | 2024-09-21 17:25 | PC.NURSE ---
pt bib [facility] from [facility] for hypotension, and low hgb. pt refused all tx in route here
[2024-09-21] MEDS: SODIUM CHLORIDE 0.9% 1000 ML 1,000 ML 999 ML IV (17:30)
[2024-09-21] MEDS: PANTOPRAZOLE INJ 40 MG VIAL 80 MG IV (17:36)
[2024-09-21 18:18] LABS: Basophils % (Auto) 0 % (0-2.5); Eosinophils % (Auto) 0 % (0-10); Hematocrit 20.6 % (41.0-53.0); Immature Granulocytes % (Auto) 1 % (0-0); Immature Granulocytes Auto 0.21 Thou/mm3 (0.00-0.00); Lymphocytes # (Auto) 2.1 Thou/mm3 (1.0-4.8); Lymphocytes % (Auto) 11 % (10-50); Mean Corpuscular HGB Conc 30.6 g/dl (31.0-37.0); Mean Corpuscular Hemoglobin 23.2 pg (25.0-35.0); Mean Corpuscular Volume 76 fL (80-100); Monocytes # (Auto) 1.2 Thou/mm3 (0.0-0.8); Monocytes % (Auto) 6 % (0-12); Neutrophils # (Auto) 15.3 Thou/mm3 (1.8-7.7); Neutrophils % (Auto) 81 % (37-80); Nucleated Red Blood Cell % 0 /100 WBC (0); Platelet Count 311 Thou/mm3 (140-440); RDW Standard Deviation 64.7 fL (35.1-43.9); Red Blood Count 2.71 Miln/mm3 (4.50-5.90); White Blood Count 18.8 Thou/mm3 (3.8-10.6)
[2024-09-21 18:35] LABS: Hemoglobin 6.3 g/dL (13.5-16.0)
[2024-09-21 18:38] LABS: Alanine Aminotransferase 8 U/L (10-49); Albumin/Globulin Ratio 1.6 (1.2-2.2); Alkaline Phosphatase 71 U/L (46-116); Anion Gap 11 (7-16); Aspartate Amino Transferase 11 U/L (0-34); BUN/Creatinine Ratio 61 Ratio (12-20); Bilirubin,Total 0.2 mg/dL (0.3-1.2); Blood Urea Nitrogen 49 mg/dL (9-23); Calcium 9.2 mg/dL (8.3-10.6); Carbon Dioxide 21.3 mMol/L (20.0-31.0); Chloride 104 mMol/L (98-107); Creatinine (Component) 0.8 mg/dL (0.6-1.3); Estimated Creatinine Clearance 76.5 mL/min (>60); Globulin 1.9 gm/dL (2.3-3.5); Glucose 146 mg/dL (74-106); INR 1.1 (0.9-1.3); Osmolality,Calculated 287 (275-295); Potassium 4.5 mMol/L (3.4-5.1); Prothrombin Time 11.5 Seconds (9.0-12.2); Sodium 136 mMol/L (136-145); Total Protein 4.9 gm/dL (5.7-8.2); eGFR > 60 See Note
--- NOTE | 2024-09-21 18:42 | PC.NURSE ---
nurse from [facility] called stating that medical fee clerk wants a head ct. i advised i will like provider know
--- NOTE | 2024-09-21 22:29 | PD.IMCONS ---
HPI Data of Consult Primary Care Provider: Magon Hammer MD Consult Narrative Reason for consult: Melena H/H 6.3/20.6 History of present illness: 72 years old male with history of stage IV adenocarcinoma of the esophagus diagnosed on previous admission who had developed altered mental status imaging studies showed edema in the frontal and the occipital lobe was transferred to [facility] where he had a craniotomy resection of the mets which was definitely metastatic adenocarcinoma to the brain Patient presented with melanotic stools and a hemoglobin of 6.3 g and hematocrit of 20.6 and subsequently admitted after discussion with the physician assistant branch operations manager for blood transfusion and further management I also recommended a consultation with Dr. Sandy or radiation oncologist cc:: cc: Review of Systems Review of Systems Systems Reviewed: All systems reviewed, normal except as documented Past Medical History Surgical History OTHER SURGICAL HX: As in the history of present illness Meds Home Medications and Allergies Allergies Allergy/AdvReac Type Severity Reaction Status Date / Time No Known Allergies Allergy Verified 09/02/24 20:46 Exam Vital Signs Temp Pulse Resp BP Pulse Ox O2 Del Method O2 Flow Rate 98.7 F 75 18 101/57 L 97 Room Air 3 09/21/24 22:15 09/21/24 22:15 09/21/24 22:15 09/21/24 22:15 09/21/24 22:15 09/21/24 22:15 09/21/24 15:40 Constitutional Comments: Chronically ill-appearing Routine Respiratory Exam Comments: Normal to auscultation Routine Abdominal Exam Comments: Soft nontender Results Labs 09/22/24 03:17 09/22/24 03:17 Labs: Short CBC 09/21/24 Range/Units 17:35 WBC 18.8 H (3.8-10.6) Thou/mm3 Hgb 6.3 L* D (13.5-16.0) g/dL Hct 20.6 L* (41.0-53.0) % Plt Count 311 D (140-440) Thou/mm3 BMP 09/21/24 17:35 Sodium 136 Potassium 4.5 Chloride 104 Carbon Dioxide 21.3 BUN 49 H Creatinine 0.8 Glucose 146 H Calcium 9.2 Liver Function 09/21/24 Range/Units 17:35 Total Bilirubin 0.2 L (0.3-1.2) mg/dL AST 11 (0-34) U/L ALT 8 L (10-49) U/L Alkaline Phosphatase 71 (46-116) U/L Albumin 3.0 L (3.4-4.8) gm/dL Assessment and Plan Additional Assessment & Plan Additional Plan: # 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 Sandy or radiation oncologist to consult Prognosis extremely poor Should consider hospice and end-of-life care thank you very much for the opportunity to participate in the care of this patient
[2024-09-22] VITALS (10 sets, daily range): BP systolic 104–231; BP diastolic 51–99; PULSE 67–81; RESP 14–20; TEMP 36.6–37.2; O2SAT 95–100; BMI 22.4
[2024-09-22 01:23] LABS: OBS Developer Lot # 1-24 551749; OBS Performed By ABRCR; OBS QC OK? Yes; Occult Blood, Stool Positive (Negative)
--- NOTE | 2024-09-22 02:45 | ESHP_ITS ---
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 Emergency room physician Dr. Capellan consulted for electric appliance installer who recommended admission for EGD. Plan to hold Eliquis and admit the patient to telemetry .I reviewed above note and agree with findings and plans. I have also personally examined the patient with medicine team and went over assessment and plan with medical team including financial services internship and resident physician. Documentation for date of: 09/22/24 HPI History of Present Illness History of present illness: HPI is limited as patient is hard of hearing and poor historian Gordon is a 73 y/o male with PMHx of distal esophagus adenocarcinoma, with mets to the brain, status post craniectomy, excision of the tumor, that was done 13 days ago at [facility], afib on Eliquis who comes in for an evaluation of dark tarry stools. Patient has noted that he was at his halfway facility and had a couple bouts of dark tarry stools. He does feel a bit weak and lethargic, however does not endorse any chest pain, shortness of breath, confusion, nausea vomiting diarrhea. He does confirm that he was recently discharged from [facility] for craniotomy as he had metastases of his esophageal cancer to his brain. He denies any syncope. Denies any recent travel or sick contacts. No other complaints at this time. ED course: Patient came in to the ED with a temperature of 97.5, heart rate 70, respiratory rate 20, blood pressure 100/66, saturating 100% on 3 L nasal cannula. His blood pressure began to dip and patient also developed tachycardia. He was worked up was found to have a hemoglobin of 6.3, white blood cell count 19, BUN/creatinine of 49 and 0.8 respectively, potassium 4.5, bicarb 21, sodium 136, T. bili of 0.2. He was given 1 L normal saline, 2 packed PRBCs and Protonix 80 mg x 1. GI was consulted who recommended admission for observation for acute blood loss anemia. Medicine was consulted and patient admitted to floors. Past medical history: As above Surgical history: Status postcraniotomy Medicines: Losartan 50 mg, metformin 500 mg twice daily, nicotine patch, Protonix 40 mg, MiraLAX, senna, salt tabs 1 g, simethicone, Dulcolax, Eliquis 5 mg twice daily Allergies: No known allergies Family history: Denies family history of medical problems Social history: Confirms smoking history, however has quit. Has never been a heavy drinker. Denies any illicit IV or oral drug use Review of Systems Review of Systems Narrative Review of Systems: Constitutional: No fever, chills, + fatigue, + weakness, + weight loss HEENT: No eye pain, vision loss, ear pain, hearing loss, dysphagia, Cardiovascular: No chest pain, palpitations, edema, pain with walking Respiratory: No cough, shortness of breath, wheezing GI: No NVD, abdominal pain, constipation, blood in stool, loss of appetite, heartburn Extremities: No presence of pitting edema MSK: No back pain, joint pain, joint swelling Neuro: No dizziness, numbness, weakness, headaches, seizures, tremors Psych: No anxiety, depression Exam Vital Signs Temp Pulse Resp BP Pulse Ox O2 Del Method O2 Flow Rate 98.8 F 70 19 114/51 L 95 Room Air 3 09/22/24 01:33 09/22/24 01:33 09/22/24 01:33 09/22/24 01:33 09/22/24 01:33 09/22/24 01:33 09/21/24 15:40 Narrative Exam General: AAOx3, NAD, frail elderly male, appears to be older than he is, has rock, extremely hard of hearing HEENT: Moist mucous membranes, pale conjunctiva bilaterally, EOMI, PERRLA, poor dentition, craniotomy scar and sutures present over frontal bone Cardiovascular: Ejection systolic murmur, radial pulses +2 bilat Pulmonary: CTAB bilat no cough, no wheezing GI: No tenderness to light or deep palpitation, no guarding, rigidity, rebound tenderness or distension Extremities: No presence of trace or pitting edema in lower extremities bilaterally, dorsalis pedis pulses +2 bilaterally, cap refill less than 3 seconds Neuro: AAOx3, no focal motor or sensory deficits in the UE or LE bilat Results: Labs 09/21/24 17:35 09/21/24 17:35 Labs: Short CBC 09/21/24 Range/Units 17:35 WBC 18.8 H (3.8-10.6) Thou/mm3 Hgb 6.3 L* D (13.5-16.0) g/dL Hct 20.6 L* (41.0-53.0) % Plt Count 311 D (140-440) Thou/mm3 BMP 09/21/24 17:35 Sodium 136 Potassium 4.5 Chloride 104 Carbon Dioxide 21.3 BUN 49 H Creatinine 0.8 Glucose 146 H Calcium 9.2 Liver Function 09/21/24 Range/Units 17:35 Total Bilirubin 0.2 L (0.3-1.2) mg/dL AST 11 (0-34) U/L ALT 8 L (10-49) U/L Alkaline Phosphatase 71 (46-116) U/L Albumin 3.0 L (3.4-4.8) gm/dL Quality Measures Quality Measures none Advance care planning discussed with:: patient Medications Home Medications and Allergies Allergies Allergy/AdvReac Type Severity Reaction Status Date / Time No Known Allergies Allergy Verified 09/02/24 20:46 Visit Medications Dextrose (Dextrose 50%-Water Inj 50 Ml Syringe) 25 ml IV Q15MIN PRN PRN Reason: BG 50-70 responsive npo pt Stop: 10/21/24 21:31 Dextrose (Dextrose 50%-Water Inj 50 Ml Syringe) 50 ml IV Q15MIN PRN PRN Reason: BG <50 OR BG <70 & pt unresponsive Stop: 10/21/24 21:31 Glucagon (Glucagon Inj 1 Mg Vial) 1 mg IM Q15MIN PRN PRN Reason: BG <70, and no IV access Insulin Human Lispro (Insulin Lispro (Admelog) 1 Unit/0.01 Ml Unit) 0 unit SC AC ANTONI; Protocol Stop: 10/22/24 07:29 Ondansetron HCl (Ondansetron Inj 2 Mg/Ml Inj 2 Ml) 4 mg IV Q6H PRN; Protocol PRN Reason: NAUSEA OR VOMITING Stop: 10/21/24 21:26 Pantoprazole Sodium (Pantoprazole Inj 40 Mg Vial) 40 mg IVP Q12HR ANTONI Stop: 10/22/24 08:59 Discontinued Medications Sodium Chloride (Ns) 1,000 mls @ 999 mls/hr IV .Q1H1M ONE Stop: 09/21/24 18:29 Last Infusion: 09/21/24 19:22 Dose: Infused Pantoprazole Sodium (Pantoprazole Inj 40 Mg Vial) 80 mg IV X1 ONE Stop: 09/21/24 17:31 Last Admin: 09/21/24 17:36 Dose: 80 mg Assessment & Plan Plan Assessment Gordon is a 73 y/o male with PMHx of distal esophageal adenocarcinoma, with mets to the brain, status post craniectomy, excision of the tumor, that was done 13 days ago at [facility], A- fib on Eliquis who is admitted for upper GI bleed and acute on chronic blood loss anemia. #Upper GI bleed secondary to #Distal invasive esophageal adenocarcinoma, well-differentiated #Acute on chronic blood loss anemia #Symptomatic anemia Spoke with Dr. Rapp who recommends admission for observation, at this point we do know the site of bleeding which is from the esophageal mass and there is no need for another EGD at this time Pathology results from esophageal mass in late August 2024 shows distal invasive esophageal adenocarcinoma that is well-differentiated Black tarry stools Supposed to resume Eliquis a couple of days ago as he has a history of A-fib Patient at this point further intervention from a oncology standpoint to minimize risk of further bleeds and GI recommends this Hemoglobin 6.3, MCV 76 on admission Patient began to become hypotensive and tachycardic, will need blood transfusion Plan: ? Trend CBC ? Iron studies panel ? Peripheral blood smear ? Reticulocyte count ? Transfusion protocol hemoglobin below 7 ? Holding Eliquis ? Avoiding any NSAIDs ? SCDs ? Protonix 40 mg IV twice daily ? Oncology consult #History of hypertension #Chronic A-fib, rate controlled [id number]: 3 points HAS-BLED: 3 points, high risk of bleeding Rate: Rate controlled AC: Uses Eliquis Plan: ? Telemetry ? Keep magnesium and potassium above 2 and 4 speculate avoid any cardiac arrhythmias ? Holding Eliquis in setting of GI bleed, will continue with SCDs ? Holding home blood pressure medicines in setting of hypotension #Kep-yqltbjq-rlhnzgxky type II diabetes mellitus A1c of 6.7 Plan: ? Sliding scale insulin ? Hypoglycemic protocol in place ? Blood sugar checks with meals #Former smoker Chronic, this is a risk factor to his diagnosis of esophageal cancer Plan: ? Nicotine patch as needed #Health Maintenance Disposition: Telemetry DVT prophylaxis: SCDs GI prophylaxis: Protonix 40 mg IV twice daily Diet: Cardiac, pending nurse swallow eval CODE STATUS: DNR Patient seen and care discussed with my attending physician, Dr. Marisol Haile, PGY-1
[2024-09-22 03:30] LABS: Basophils % (Auto) 0 % (0-2.5); Eosinophils # (Auto) 0.2 Thou/mm3 (0.0-0.5); Eosinophils % (Auto) 1 % (0-10); Hematocrit 27.2 % (41.0-53.0); Hemoglobin 8.9 g/dL (13.5-16.0); Immature Granulocytes % (Auto) 1 % (0-0); Immature Granulocytes Auto 0.12 Thou/mm3 (0.00-0.00); Immature Reticulocyte Fraction 14.6 % (2.3-13.4); Lymphocytes # (Auto) 2.3 Thou/mm3 (1.0-4.8); Lymphocytes % (Auto) 13 % (10-50); Mean Corpuscular HGB Conc 32.7 g/dl (31.0-37.0); Mean Corpuscular Hemoglobin 25.5 pg (25.0-35.0); Mean Corpuscular Volume 78 fL (80-100); Monocytes # (Auto) 1.4 Thou/mm3 (0.0-0.8); Monocytes % (Auto) 8 % (0-12); Neutrophils # (Auto) 13.8 Thou/mm3 (1.8-7.7); Neutrophils % (Auto) 77 % (37-80); Nucleated Red Blood Cell % 0 /100 WBC (0); Platelet Count 288 Thou/mm3 (140-440); RDW Standard Deviation 61.1 fL (35.1-43.9); Red Blood Count 3.49 Miln/mm3 (4.50-5.90); Reticulocyte % (Auto) 1.3 % (0.5-1.5); Reticulocyte Absolute Auto 44.7 Biln/L (25.0-75.0); Reticulocyte Hgb Content 25.8 pg (28.0-35.0); White Blood Count 17.9 Thou/mm3 (3.8-10.6)
[2024-09-22 03:34] LABS: Collection Type, Urine Clean Catch; Squamous Epithelial Cell,Urine 0 /hpf (0-5)
[2024-09-22 03:37] LABS: Bilirubin,Urine Negative (Negative); Blood,Urine Negative (Negative); Clarity,Urine Clear (Clear/Hazy); Color,Urine Lt-Yellow (Lt Yel-Yel); Glucose, Urine Negative (Negative); Ketones,Urine Negative (Negative); Leukocyte Esterase,Urine Negative (Negative); Nitrite,Urine Negative (Negative); Protein,Urine Negative (Neg - Trace); RBC,Urine < 1 /hpf (0-3); Urobilinogen,Urine Negative mg/dL (0.0-1.0); WBC,Urine < 1 /hpf (0-5)
[2024-09-22 03:42] LABS: Partial Thromboplastin Time 26.8 Seconds (22.0-36.0); Prothrombin Time 11.3 Seconds (9.0-12.2)
[2024-09-22 03:44] LABS: Path Review Blood Smear Sent to Pathologist
[2024-09-22 03:59] LABS: Alanine Aminotransferase 8 U/L (10-49); Albumin/Globulin Ratio 1.7 (1.2-2.2); Alkaline Phosphatase 74 U/L (46-116); Anion Gap 6 (7-16); Aspartate Amino Transferase < 10 U/L (0-34); BUN/Creatinine Ratio 46 Ratio (12-20); Bilirubin,Total 0.5 mg/dL (0.3-1.2); Blood Urea Nitrogen 37 mg/dL (9-23); Calcium 8.5 mg/dL (8.3-10.6); Calcium (Corrected) 9.3 mg/dL (8.5-10.1); Carbon Dioxide 24.5 mMol/L (20.0-31.0); Chloride 105 mMol/L (98-107); Creatinine (Component) 0.8 mg/dL (0.6-1.3); Estimated Creatinine Clearance 76.5 mL/min (>60); Globulin 1.8 gm/dL (2.3-3.5); Glucose 119 mg/dL (74-106); Magnesium 1.8 mg/dL (1.6-2.6); Osmolality,Calculated 279 (275-295); Phosphorous 3.5 mg/dL (2.4-5.1); Potassium 4.2 mMol/L (3.4-5.1); Sodium 135 mMol/L (136-145); Total Protein 4.8 gm/dL (5.7-8.2); eGFR > 60 See Note
[2024-09-22 04:05] LABS: Iron 20 mcg/dL (65-175); Percent Iron Saturation 7 % (20-55); Total Iron Binding Capacity 261 mcg/dL (250-425); Unsaturated Iron Binding 241 (225-295)
--- NOTE | 2024-09-22 08:12 | ESCONSULT_ITS ---
HPI Data of Consult Requesting Physician: Stacia Damon MD Primary Care Provider: Magno Hammer MD Consult Narrative Reason for consult: Stage IV esophageal cancer History of present illness: 73-year-old gentleman diagnosed to have distal esophageal CA with mets to the brain. Endoscopy performed by Dr. Rapp revealed distal esophageal mass revealing invasive adenocarcinoma and brain MRI 09/06/2024 revealed marked edema in right frontal and posterior right parietal occipital lobe suggestive of brain mets. Patient was transferred to [facility] and had craniotomy and resection revealing the mets. Patient was then transferred back to [place] and staying at [facility]. Was admitted with GI bleeding hemoglobin 6.3 and hypotension upon ER visit yesterday improved to 8.9 with 2 units packed red blood cell. Patient who had been prescribed Eliquis for A-fib is now being held. Patient now referred for oncological consultation. Patient is currently residing at [facility], and any form of cancer therapy either radiation or chemo may be problematic due to funding limitations of SNF patients. Family also informed about likely poor prognosis, and hospice is being considered following discharge. cc:: cc: Stacia Damon MD Past Medical History Surgical History OTHER SURGICAL HX: Recent craniotomy for brain mets [facility] Past Medical History Comments PMH COMMENT: Esophageal CA with brain mets; recent craniotomy at [facility].; Hypertension A-fib treated with Eliquis latter now being held, [id number] type 2 diabetes mellitus Meds Home Medications and Allergies Allergies Allergy/AdvReac Type Severity Reaction Status Date / Time No Known Allergies Allergy Verified 09/02/24 20:46 Exam Vital Signs Temp Pulse Resp BP Pulse Ox O2 Del Method O2 Flow Rate 98.8 F 69 19 133/66 H 100 Room Air 3 09/22/24 06:09 09/22/24 06:09 09/22/24 06:09 09/22/24 06:09 09/22/24 06:09 09/22/24 06:09 09/21/24 15:40 Narrative Exam Appearing tired but comfortable at ER this a.m. eating breakfast. Results Labs 09/22/24 03:17 09/22/24 03:17 Labs: Short CBC 09/21/24 09/22/24 Range/Units 17:35 03:17 WBC 18.8 H 17.9 H (3.8-10.6) Thou/mm3 Hgb 6.3 L* D 8.9 L D (13.5-16.0) g/dL Hct 20.6 L* 27.2 L (41.0-53.0) % Plt Count 311 D 288 (140-440) Thou/mm3 BMP 09/21/24 09/22/24 17:35 03:17 Sodium 136 135 L Potassium 4.5 4.2 Chloride 104 105 Carbon Dioxide 21.3 24.5 BUN 49 H 37 H Creatinine 0.8 0.8 Glucose 146 H 119 H Calcium 9.2 8.5 Liver Function 09/21/24 09/22/24 Range/Units 17:35 03:17 Total Bilirubin 0.2 L 0.5 (0.3-1.2) mg/dL AST 11 < 10 (0-34) U/L ALT 8 L 8 L (10-49) U/L Alkaline Phosphatase 71 74 (46-116) U/L Albumin 3.0 L 3.0 L (3.4-4.8) gm/dL Urine 09/22/24 Range/Units 03:23 Urine Color Lt-Yellow (Lt Yel-Yel) Urine Clarity Clear (Clear/Hazy) Urine pH 6.0 (5.0-7.0) Ur Specific [place] 1.020 (1.001-1.035) Urine Protein Negative (Neg - Trace) Urine Glucose (UA) Negative (Negative) Assessment and Plan Additional Assessment & Plan Additional Plan: 1. Stage IV distal esophageal CA adenocarcinoma with brain mets. 2. Recent surgery partially removing brain mets [facility] 3. Admitted with hypotension GI bleeding, Eliquis for A-fib now being held. 4. Obviously faces guarded condition, prognosis discussed with family. Will follow.
[2024-09-22] MEDS: PANTOPRAZOLE INJ 40 MG VIAL IVP ×2 (10:34→20:00)
[2024-09-22] MEDS: LIDOCAINE 5% 1 PATCH TOP (15:38)
[2024-09-22] MEDS: POLYETHYLENE GLYCOL 17 GM PACKET PO (16:11)
[2024-09-22] MEDS: LOSARTAN POTASSIUM 25 MG TABLET 50 MG PO (16:11)
--- NOTE | 2024-09-22 17:22 | PD.RESEVENT ---
Documentation for date of: 09/22/24 Event Note Event Note: Patient's family (son Ankit, sister Alexandria)
[2024-09-22] MEDS: SODIUM CHLORIDE 1 GM TABLET PO (17:53)
--- NOTE | 2024-09-22 19:36 | ESPR_ITS ---
<Statement entered by Obey Easley MD - 09/22/24 21:27> Patient was seen and examined at the bedside. Patient is admitted for GI bleed. He was recently discharged to SNF for acute rehab after workup for GI bleed due to esophageal adenocarcinoma metastatic to brain and was managed in [place] for removal of metastatic brain lesion. Patient received 1 unit of PRBC. Goals of care discussion was performed with the son and sister Alexandria in terms of patient's poor prognosis. Family wants to prefer patient's own decision making and they want him to decide on his disposition. Patient's home medications were reconciled. All labs and orders were reviewed. I saw and examined the patient, and I agree with current management stated by Dr Tk MD,PGY1. Plan of care was discussed with the attending physician and resident physician. Disclaimer: Despite multiple revisions, due to the dictation software being used, the document bellow may not be free of grammatical errors including phonetic/typographic errors. However, this does not deter from our commitment to providing health care in the patient's best interest in mind. Dr. Loretta MD, PGY 2 Documentation for date of: 09/22/24 Subjective Subjective Interval history: Pt is an overnight admit, who was recently recently discharged to rehab. Pt is seen and examined at bedside, pt receive 1 unit of pRBC and post transfusion hemoglobin is 8.9. Pt denies SOB, dizziness, he states he is mild to moderate epigastric pain all the time. Pt also is complaining of tailbone pain and is requesting lidocaine patch as it helped him during his last admission. Vitals and the remainder of labs are stable. Pt is also requesting to be allowed to get in and out of bed to use the toilet and walk down the herman as he was doing at SNF. Physical therapy evaluation is ordered. Discussion is held with the pts son and sis Alexandria regarding treatment plan and progression of his metastatic disease as he is not a candidate for radiation or chemo therapy, Pt is admitted for acute GI bleed however with his history of a- fib of eliquis if discontinued it puts him at high risk for stroke. Pts family is aware of the risks and benefits and would like to think and discuss amongst each other and would like to hold a goals of care discussion at a later time. Family's preference is also that Mr. Martinez is evaluated for decision making capacity and would prefer if the pt himself can decide on his disposition. Exam Vital Signs Temp Pulse Resp BP Pulse Ox O2 Del Method O2 Flow Rate 98.3 F 78 18 146/88 H 98 Nasal Cannula 3 09/22/24 13:11 09/22/24 16:11 09/22/24 13:11 09/22/24 16:11 09/22/24 13:11 09/22/24 13:11 09/21/24 15:40 Narrative Exam GENERAL: A&Ox3 . Awake, hard of hearing elderly male, Not in acute distress NEURO: no focal neurological deficits HEENT: Atraumatic, Normocephalic. mucous membranes moist. Eyes open, symmetrical, & clear, bandage over upper side of forehead HEART: Normal Heart Sounds LUNGS: Clear to auscultation with no wheezing or crackles. ABDOMEN: soft, non-distended, non-tender, bowel sounds heard, no guarding or rebound tenderness SKIN: No Rash or ecchymoses EXTREMITIES: No edema, tenderness, able to move all 4 extremities, pedal pulses palpated Objective Labs 09/23/24 04:28 09/23/24 04:28 Labs: Laboratory Results - last 24 hr 09/21/24 09/21/24 09/22/24 17:35 19:00 03:17 WBC 17.9 H RBC 3.49 L Hgb 8.9 L D Hct 27.2 L MCV 78 L MCH 25.5 MCHC 32.7 RDW Std Deviation 61.1 H Plt Count 288 Neut % (Auto) 77 Lymph % (Auto) 13 [place] % (Auto) 8 Eos % (Auto) 1 Baso % (Auto) 0 Neut # (Auto) 13.8 H Lymph # (Auto) 2.3 [place] # (Auto) 1.4 H Eos # (Auto) 0.2 Baso # (Auto) 0.0 Immature Gran # (Auto) 0.12 H Absolute Nucleated RBC 0.00 Immature Gran % 1 H Nucleated RBC % 0 Smear Path Review Sent to Pathologist Cancelled Retic Count (auto) 1.3 Absolute Retic 44.7 Immature Retic Fraction 14.6 H Retic Hgb Content CHr 25.8 L PT 11.3 INR 1.0 APTT 26.8 Sodium 135 L Potassium 4.2 Chloride 105 Carbon Dioxide 24.5 Anion Gap 6 L BUN 37 H Creatinine 0.8 Estim Creat Clear Calc 76.5 eGFR > 60 BUN/Creatinine Ratio 46 H Glucose 119 H Calculated Osmolality 279 Calcium 8.5 Corrected Calcium 9.3 Phosphorus 3.5 Magnesium 1.8 Iron 20 L TIBC 261 Iron Saturation 7 L Unsat Iron Binding 241 Total Bilirubin 0.5 AST < 10 ALT 8 L Alkaline Phosphatase 74 Total Protein 4.8 L Albumin 3.0 L Globulin 1.8 L Albumin/Globulin Ratio 1.7 Ur Collection Type Urine Color Urine Clarity Urine pH Ur Specific [place] Urine Protein Urine Glucose (UA) Urine Ketones Urine Blood Urine Nitrite Urine Bilirubin Urine Urobilinogen (Auto) Ur Leukocyte Esterase Urine RBC Urine WBC Ur Squamous Epith Cells Urine Bacteria Stool Occult Blood Positive A Blood Type O Positive Antibody Screen NEGATIVE Crossmatch See Detail Blood Bank Wristband ID Yes 09/22/24 03:23 WBC RBC Hgb Hct MCV MCH MCHC RDW Std Deviation Plt Count Neut % (Auto) Lymph % (Auto) [place] % (Auto) Eos % (Auto) Baso % (Auto) Neut # (Auto) Lymph # (Auto) [place] # (Auto) Eos # (Auto) Baso # (Auto) Immature Gran # (Auto) Absolute Nucleated RBC Immature Gran % Nucleated RBC % Smear Path Review Retic Count (auto) Absolute Retic Immature Retic Fraction Retic Hgb Content CHr PT INR APTT Sodium Potassium Chloride Carbon Dioxide Anion Gap BUN Creatinine Estim Creat Clear Calc eGFR BUN/Creatinine Ratio Glucose Calculated Osmolality Calcium Corrected Calcium Phosphorus Magnesium Iron TIBC Iron Saturation Unsat Iron Binding Total Bilirubin AST ALT Alkaline Phosphatase Total Protein Albumin Globulin Albumin/Globulin Ratio Ur Collection Type Clean Catch Urine Color Lt-Yellow Urine Clarity Clear Urine pH 6.0 Ur Specific [place] 1.020 Urine Protein Negative Urine Glucose (UA) Negative Urine Ketones Negative Urine Blood Negative Urine Nitrite Negative Urine Bilirubin Negative Urine Urobilinogen (Auto) Negative Ur Leukocyte Esterase Negative Urine RBC < 1 Urine WBC < 1 Ur Squamous Epith Cells 0 Urine Bacteria None Stool Occult Blood Blood Type Antibody Screen Crossmatch Blood Bank Wristband ID Quality Measures Quality Measures none Advance care planning discussed with:: child Assessment & Plan Assessment Current Active Medications: Generic Name Dose Route Start Last Admin Trade Name Freq PRN Reason Stop Dose Admin Dextrose 25 ml 09/21/24 21:32 Dextrose 50%-Water Inj 50 Ml Syringe IV 10/21/24 21:31 Q15MIN PRN BG 50-70 responsive npo pt Dextrose 50 ml 09/21/24 21:32 Dextrose 50%-Water Inj 50 Ml Syringe IV 10/21/24 21:31 Q15MIN PRN BG <50 OR BG <70 & pt unresponsive Glucagon 1 mg 09/21/24 21:32 Glucagon Inj 1 Mg Vial IM Q15MIN PRN BG <70, and no IV access Insulin Human Lispro 0 unit 09/22/24 07:30 09/22/24 17:15 Insulin Lispro (Admelog) 1 Unit/0.01 Ml Unit SC 10/22/24 07:29 Not Given AC ANTONI Protocol Lidocaine 1 patch 09/22/24 15:00 09/22/24 15:38 Lidocaine 5% 1 Patch TOP 10/22/24 14:59 1 patch UD PRN Administration LOCALIZED PAIN Losartan Potassium 50 mg 09/22/24 15:45 09/22/24 16:11 Losartan Potassium 25 Mg Tablet PO 10/22/24 15:44 50 mg QDAY ANTONI Administration Nicotine 14 mg 09/22/24 03:05 Nicotine Patch 14 Mg/24 Hr Patch.Td24 TOP 10/22/24 03:04 X1 PRN Nicotine Cravings Ondansetron HCl 4 mg 09/21/24 21:27 Ondansetron Inj 2 Mg/Ml Inj 2 Ml IV 10/21/24 21:26 Q6H PRN NAUSEA OR VOMITING Protocol Pantoprazole Sodium 40 mg 09/22/24 09:00 09/22/24 10:34 Pantoprazole Inj 40 Mg Vial IVP 10/22/24 08:59 40 mg Q12HR ANTONI Administration Polyethylene Glycol 17 gm 09/22/24 03:10 Polyethylene Glycol 17 Gm Packet PO 10/22/24 03:09 X1 PRN CONSTIPATION Protocol Polyethylene Glycol 17 gm 09/22/24 15:45 09/22/24 16:11 Polyethylene Glycol 17 Gm Packet PO 10/22/24 15:44 17 gm QDAY ANTONI Administration Sennosides 1 tab 09/22/24 03:10 Senna Tablet PO 10/22/24 03:09 X1 PRN CONSTIPATION Protocol Simethicone 80 mg 09/22/24 15:40 Simethicone 80 Mg Chew PO 10/22/24 15:39 QID PRN Gas Sodium Chloride 1 gm 09/22/24 17:30 09/22/24 17:53 Sodium Chloride 1 Gm Tablet PO 10/22/24 17:29 1 gm TIDWM ANTONI Administration Plan Mr. Martinez is a 73 y/o male with PMHx of distal esophageal adenocarcinoma, with mets to the brain, liver and stomach, Pt is status post craniotomy, excision of the tumor, that was done 13 days ago at [facility], A- fib on Eliquis who is admitted for upper GI bleed and acute on chronic blood loss anemia. #Upper GI bleed secondary to #Distal invasive esophageal adenocarcinoma, well-differentiated #Acute on chronic blood loss anemia #Symptomatic anemia Spoke with Dr. Rapp who recommends admission for observation, at this point we do know the site of bleeding which is from the esophageal mass and there is no need for another EGD at this time Pathology results from esophageal mass in late August 2024 shows distal invasive esophageal adenocarcinoma that is well-differentiated Black tarry stools Supposed to resume Eliquis a couple of days ago as he has a history of A-fib Patient at this point further intervention from a oncology standpoint to minimize risk of further bleeds and GI recommends this hemoglobin 6.3, MCV 76 on admission Patient began to become hypotensive and tachycardic, will need blood transfusion Plan: -Trend CBC -Iron studies panel -Peripheral blood smear -Reticulocyte count -Transfusion protocol hemoglobin below 7 -Holding Eliquis -Avoiding any NSAIDs -SCDs -Protonix 40 mg IV twice daily -s/p 1 unit pRBCs -Oncology consult #History of hypertension #Chronic A-fib, rate controlled [id number]: 3 points HAS-BLED: 3 points, high risk of bleeding Rate: Rate controlled AC: Uses Eliquis Plan: -Telemetry -Keep magnesium and potassium above 2 and 4 speculate avoid any cardiac arrhythmias -Holding Eliquis in setting of GI bleed, will continue with SCDs -Holding home blood pressure medicines in setting of hypotension #Sfd-iqlkytj-csqtfbqog type II diabetes mellitus A1c of 6.7 Plan: -Sliding scale insulin -Hypoglycemic protocol in place -Blood sugar checks with meals #Former smoker Chronic, this is a risk factor to his diagnosis of esophageal cancer Plan: -Nicotine patch as needed #Health Maintenance Disposition: Telemetry DVT prophylaxis: SCDs GI prophylaxis: Protonix 40 mg IV twice daily Diet: Cardiac CODE STATUS: DNR Assessment and plan discussed with my senior resident Dr. Easley & attending physician Dr. Radha Frey (PGY-1)- Internal medicine resident Attending Provider Attestation/Addendum I have discussed and was present for the essential components of the history, physical examination, diagnosis, and treatment plan with the resident. I agree with the patient's care as documented by the resident and amended herein by me. Jonas Garcia, DO. Although this document has been carefully reviewed, there may still be some phonetic and other typographical errors. These errors are purely grammatical due to imperfections in the software program and should not be construed in any way to compromise the substance of the patient's medical care during this visit.
[2024-09-22] MEDS: SIMETHICONE 80 MG CHEW PO (19:55)
--- NOTE | 2024-09-22 22:58 | PD.IMPROG ---
Documentation for date of: 09/22/24 Subjective Subjective Interval history: Hemoglobin up to 8.3 g after blood transfusion Dr. Sandy's note appreciated Exam Vital Signs Temp Pulse Resp BP Pulse Ox O2 Del Method O2 Flow Rate 97.9 F 69 17 104/57 L 100 Nasal Cannula 3 09/22/24 20:00 09/22/24 20:00 09/22/24 20:00 09/22/24 20:00 09/22/24 20:00 09/22/24 20:00 09/21/24 15:40 Objective Labs 09/22/24 03:17 09/22/24 03:17 Labs: Laboratory Results - last 24 hr 09/21/24 09/21/24 09/22/24 17:35 19:00 03:17 WBC 17.9 H RBC 3.49 L Hgb 8.9 L D Hct 27.2 L MCV 78 L MCH 25.5 MCHC 32.7 RDW Std Deviation 61.1 H Plt Count 288 Neut % (Auto) 77 Lymph % (Auto) 13 [place] % (Auto) 8 Eos % (Auto) 1 Baso % (Auto) 0 Neut # (Auto) 13.8 H Lymph # (Auto) 2.3 [place] # (Auto) 1.4 H Eos # (Auto) 0.2 Baso # (Auto) 0.0 Immature Gran # (Auto) 0.12 H Absolute Nucleated RBC 0.00 Immature Gran % 1 H Nucleated RBC % 0 Smear Path Review Sent to Pathologist Cancelled Retic Count (auto) 1.3 Absolute Retic 44.7 Immature Retic Fraction 14.6 H Retic Hgb Content CHr 25.8 L PT 11.3 INR 1.0 APTT 26.8 Sodium 135 L Potassium 4.2 Chloride 105 Carbon Dioxide 24.5 Anion Gap 6 L BUN 37 H Creatinine 0.8 Estim Creat Clear Calc 76.5 eGFR > 60 BUN/Creatinine Ratio 46 H Glucose 119 H Calculated Osmolality 279 Calcium 8.5 Corrected Calcium 9.3 Phosphorus 3.5 Magnesium 1.8 Iron 20 L TIBC 261 Iron Saturation 7 L Unsat Iron Binding 241 Total Bilirubin 0.5 AST < 10 ALT 8 L Alkaline Phosphatase 74 Total Protein 4.8 L Albumin 3.0 L Globulin 1.8 L Albumin/Globulin Ratio 1.7 Ur Collection Type Urine Color Urine Clarity Urine pH Ur Specific [place] Urine Protein Urine Glucose (UA) Urine Ketones Urine Blood Urine Nitrite Urine Bilirubin Urine Urobilinogen (Auto) Ur Leukocyte Esterase Urine RBC Urine WBC Ur Squamous Epith Cells Urine Bacteria Stool Occult Blood Positive A Blood Type O Positive Antibody Screen NEGATIVE Crossmatch See Detail Blood Bank Wristband ID Yes 09/22/24 03:23 WBC RBC Hgb Hct MCV MCH MCHC RDW Std Deviation Plt Count Neut % (Auto) Lymph % (Auto) [place] % (Auto) Eos % (Auto) Baso % (Auto) Neut # (Auto) Lymph # (Auto) [place] # (Auto) Eos # (Auto) Baso # (Auto) Immature Gran # (Auto) Absolute Nucleated RBC Immature Gran % Nucleated RBC % Smear Path Review Retic Count (auto) Absolute Retic Immature Retic Fraction Retic Hgb Content CHr PT INR APTT Sodium Potassium Chloride Carbon Dioxide Anion Gap BUN Creatinine Estim Creat Clear Calc eGFR BUN/Creatinine Ratio Glucose Calculated Osmolality Calcium Corrected Calcium Phosphorus Magnesium Iron TIBC Iron Saturation Unsat Iron Binding Total Bilirubin AST ALT Alkaline Phosphatase Total Protein Albumin Globulin Albumin/Globulin Ratio Ur Collection Type Clean Catch Urine Color Lt-Yellow Urine Clarity Clear Urine pH 6.0 Ur Specific [place] 1.020 Urine Protein Negative Urine Glucose (UA) Negative Urine Ketones Negative Urine Blood Negative Urine Nitrite Negative Urine Bilirubin Negative Urine Urobilinogen (Auto) Negative Ur Leukocyte Esterase Negative Urine RBC < 1 Urine WBC < 1 Ur Squamous Epith Cells 0 Urine Bacteria None Stool Occult Blood Blood Type Antibody Screen Crossmatch Blood Bank Wristband ID Impressions Impression: # Melena with acute posthemorrhagic anemia secondary to bleeding most likely from the adenocarcinoma of the distal esophagus This carcinoma is stage IV widely metastatic Recommend supportive care with recommendations for hospice no plans to do any invasive GI work Assessment & Plan A&P Narrative # 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 Sandy or radiation oncologist to consult Prognosis extremely poor Should consider hospice and end-of-life care thank you very much for the opportunity to participate in the care of this patient Time Spent With Patient Time: Total time spent is greater than 50% in coordination of care (as documented) at patient's floor/unit and/or counseling patient:
[2024-09-23] VITALS: BP 95/54; PULSE 66; PULSE 70; RESP 18; TEMP 36.9; O2SAT 98
[2024-09-23 04:00] VITALS: BP 114/60; PULSE 69; RESP 16; TEMP 36.8; O2SAT 98
[2024-09-23 06:09] LABS: Basophils % (Auto) 0 % (0-2.5); Eosinophils # (Auto) 0.2 Thou/mm3 (0.0-0.5); Eosinophils % (Auto) 1 % (0-10); Hematocrit 24.3 % (41.0-53.0); Immature Granulocytes % (Auto) 1 % (0-0); Immature Granulocytes Auto 0.09 Thou/mm3 (0.00-0.00); Lymphocytes # (Auto) 1.6 Thou/mm3 (1.0-4.8); Lymphocytes % (Auto) 10 % (10-50); Mean Corpuscular HGB Conc 32.9 g/dl (31.0-37.0); Mean Corpuscular Hemoglobin 25.6 pg (25.0-35.0); Mean Corpuscular Volume 78 fL (80-100); Monocytes # (Auto) 1.5 Thou/mm3 (0.0-0.8); Monocytes % (Auto) 9 % (0-12); Neutrophils # (Auto) 13.2 Thou/mm3 (1.8-7.7); Neutrophils % (Auto) 79 % (37-80); Nucleated Red Blood Cell % 0 /100 WBC (0); Platelet Count 295 Thou/mm3 (140-440); RDW Standard Deviation 60.7 fL (35.1-43.9); Red Blood Count 3.12 Miln/mm3 (4.50-5.90); White Blood Count 16.6 Thou/mm3 (3.8-10.6)
[2024-09-23 06:34] LABS: Alanine Aminotransferase < 7 U/L (10-49); Albumin, Serum 2.8 gm/dL (3.4-4.8); Albumin/Globulin Ratio 1.6 (1.2-2.2); Alkaline Phosphatase 74 U/L (46-116); Anion Gap 9 (7-16); Aspartate Amino Transferase 11 U/L (0-34); BUN/Creatinine Ratio 31 Ratio (12-20); Bilirubin,Total 0.4 mg/dL (0.3-1.2); Blood Urea Nitrogen 22 mg/dL (9-23); Calcium 8.3 mg/dL (8.3-10.6); Calcium (Corrected) 9.3 mg/dL (8.5-10.1); Chloride 103 mMol/L (98-107); Creatinine (Component) 0.7 mg/dL (0.6-1.3); Estimated Creatinine Clearance 86.3 mL/min (>60); Globulin 1.7 gm/dL (2.3-3.5); Glucose 137 mg/dL (74-106); Magnesium 1.6 mg/dL (1.6-2.6); Osmolality,Calculated 277 (275-295); Phosphorous 3.1 mg/dL (2.4-5.1); Potassium 3.8 mMol/L (3.4-5.1); Sodium 136 mMol/L (136-145); Total Protein 4.5 gm/dL (5.7-8.2); eGFR > 60 See Note
[2024-09-23 08:00] VITALS: BP 114/73; PULSE 76; PULSE 90; RESP 16; TEMP 36.2; O2SAT 93
--- NOTE | 2024-09-23 08:13 | PC.SS ---
Patient Gordon Martinez is 73 year old male admitted for Acute on chronic Blood loss Anemia. contacted patient's son Ankit Martinez and he reports patient resides at [facility]. Patient's son reported himself and his aunt Alexandria Contreras are medical decision makers. Patient need assistance completing ADL's. patient's health has declined and is not able to ambulate properly any more . Patient PCP is Dr. Arias at [facility]'s office. Patient is at [facility] getting [facility]. At time of discharge patient will return back to [facility] D/c plan: [facility] Next of kin: Son, Ankit Martinez, [phone] sister, Alexandria
[2024-09-23] MEDS: SODIUM CHLORIDE 1 GM TABLET PO (08:30)
[2024-09-23] MEDS: POLYETHYLENE GLYCOL 17 GM PACKET PO (09:00)
[2024-09-23] MEDS: POTASSIUM CHLORIDE 10% 20 MEQ/15 ML UDC PO (09:00)
--- NOTE | 2024-09-23 09:21 | PC.SS ---
SS follow up note;
[2024-09-23 09:30] VITALS: BP 114/73; PULSE 90
[2024-09-23] MEDS: LOSARTAN POTASSIUM 25 MG TABLET 50 MG PO (09:30)
--- NOTE | 2024-09-23 11:50 | PC.SS ---
SS follow up note; SS set up transportation for patient through [facility] services for 2:30PM. SS updated rafa from [facility] and patient's son, Jimmy.
[2024-09-23 12:00] VITALS: BP 127/65; PULSE 65; RESP 18; TEMP 36.2; O2SAT 98
--- NOTE | 2024-09-23 14:56 | PC.NURSE ---
Pt has stated all morning that he did not want to be here, he wanted to go back to [place], he hates that he is being poked so often and stated that the hospital is a pill pushing hospital. Dr Garcia and his team had a long meeting with the patient and it was determined that the patient is not only DNR but really want comfort measures as oppose to returning to the hospital. There was a POLST in the chart that stated comfort only however the doctor at the facility had not signed it, therefore making it invalid. Along with the patient's son and myself as a witness, Audra and his team filled out a new POLST, explaining to the patient and confirming his desires. The new POLST is on record with us and has been sent to the facility. It was also explained to the facility and written on the discharge papers that if the pt is to decline or experience blood loss again, the facility is to start comfort measures and inform the family immediately. When I explained this to Marjorie (the nurse receiving report at [facility]) she stated ok, but we will do a new POLST when he gets here. Pt was happy at discharge and not currently showing any signs of distrss
--- NOTE | 2024-09-23 16:33 | PC.PT ---
Patient was approached for PT eval at 14:45 but was being transferred to a gurney for transport back to SNF. Patient's sister and son thanked PT for showing up to perform the eval but patient was already discharging back to the facility.
--- NOTE | 2024-09-23 20:48 | PD.RESDS ---
Planned Discharge Date 09/23/24 DS: Providers Provider Date of admission: 09/22/24 15:24 Primary care physician: Magno Hammer MD Admitting Provider: Stacia Damon MD Attending Provider on Admission: Efraín Garcia DO Consults: 09/21/24 18:45 Consult to Gastroenterology Stat Comment: Hypotension, upper GI bleed anemia Consulting Provider: Zoya Rapp 09/22/24 02:58 Consult to Oncology Routine Comment: Esophageal cancer Consulting Provider: Gómez Sandy 09/22/24 15:01 Referral Physical Therapy Routine Comment: Physician Instructions: Attending Provider on DC: Efraín Garcia DO Discharging Provider: Efraín Garcia DO DS: Diagnosis Problem List Completed Was Problem List Reviewed/Reconciled?: Yes Hospital Course Hospital Course Hospital course: This s a 73 year old male with past medical history significant for bilateral hearing loss, A-fib rate controlled without any medications and anticoagulation was recently discharged on 09/17/2024 after management of GI bleed. [[During previous admission, EGD was performed which showed malignant esophageal tumor in the lower third of esophagus, pathology report was evident of well differentiated invasive adenocarcinoma. On 09/06/24 rapid response was called due to pt's altered mental status and facial asymmetry subsequently stroke alert was called CT head showed Multiple tumor masses in the right cerebral hemisphere, Right frontal hyperdense pneumonitis 18 mm with prominent surrounding edema, Right occipital lobe tumor mass 4.5 cm with surrounding edema, Suspicious for soft tissue tumor mass right basal ganglia 3 cm, Severe mass effect, shift of the frontal horns to the left 10 mm Significant edema in the temporal lobe. Stat neurosurgery transfer was initiated, Pt was transfered to [facility] on 09/06/24. Pt underwent neurosurgical intervention on 09/08/25 and was transfered back from [facility] on 09/12/24. Patient was transferred back to our facility after right frontal craniotomy for tumor resection by Dr. Shore on 09/08. CT abdomen with contrast was done at [facility] which showed multiple liver masses, liver triphasic CT confirmed metastatic liver masses. Additionally, multiple abdominal lymph nodes throughout retroperitoneum consistent with lymph node metastatic. Patient was restarted on Decadron taper over a week, incentive spirometer was given. PT recommended SNF for acute rehab. He was informed to follow-up with Dr. Shore at [facility] 4 weeks postoperatively. GI specialist recommended to continue Eliquis and Protonix upon discharge.]] During this admission on 09/23, he presented again due to melena and found to have symptomatic anemia secondary to upper GI bleed. GI specialist was consulted.GI specialist did not plan to do invasive procedures. Eliquis was stopped and, 1 unit PRBC was transfused and Protonix was started. Goals of care discussion was performed with patient and patient's son Christopher in the presence of RN and social workers. Patient patient was alert and oriented x 3 is only hard of hearing and took the decision that he does not want to come back to the hospital in case he declines any further moving forward and wants to be DNR/DNI with comfort focused treatment. Further, patient's son was agreeable and POLST form was signed by patient. SNF was updated that patient has decided to be comfort focused and if he declines further he wishes to be made comfortable and does not wants to return back to the ED. client services administrator, attending physician and RN were present during that conversation. Patient is discharged back to facility with new POLST form DNR/DNI comfort focused treatment only. #Problem list: #Acute on chronic blood loss anemia #Upper GI bleed likely due to #Distal invasive esophageal adenocarcinoma, undifferentiated #Metastatic to brain #S/p right frontal craniotomy for brain mass resection #Liver masses #Chronic atrial fibrillation, rate controlled #Type II diabetes- new diagnosis #Tobacco use disorder # COPD Disposition: Patient is discharged back to rehab facility with new POLST form DNR/DNI with comfort focused treatment. Assessment and plan discussed with my attending physician Dr. Radha Frey (PGY-1)- Internal medicine resident Time Spent with Patient Time attestation: Total time spent providing and/or coordinating discharge services: Exam Vital Signs Temp Pulse Resp BP Pulse Ox O2 Del Method O2 Flow Rate 97.2 F 65 18 127/65 98 Room Air 3 09/23/24 12:09/23/24 12:09/23/24 12:09/23/24 12:09/23/24 12:09/23/24 12:09/21/24 15:40 Narrative Exam GENERAL: A&Ox3 . Awake, hard of hearing elderly male, Not in acute distress NEURO: no focal neurological deficits HEENT: Atraumatic, Normocephalic. mucous membranes moist. Eyes open, symmetrical, & clear, bandage over upper side of forehead HEART: Normal Heart Sounds LUNGS: Clear to auscultation with no wheezing or crackles. ABDOMEN: soft, non-distended, non-tender, bowel sounds heard, no guarding or rebound tenderness SKIN: No Rash or ecchymoses EXTREMITIES: No edema, tenderness, able to move all 4 extremities, pedal pulses palpated Discharge Plan Plan Patient Disposition: Xfer Skilled Nsg Fac (SNF) Care Plan Goals: ? Continue taking losartan 50 mg once daily and hold if blood pressure drops below 90/60 ? Continue taking salt tablets 1 g 3 times daily with meals ? Take all medication as prescribed ? Patient is going to be discharged with new POLST form DNR/DNI with comfort focused management. If in case patient declines or bleed patient can be started on comfort care measures at the facility with notification to the family. We stopped Eliquis given risk of re-bleeding. Patient will be discharged back to SNF. Prescriptions/Referrals Prescriptions/Med Rec: Continued simethicone 80 mg Tablet,Chewable 80 mg PO QID PRN (Reason: Gas) Qty: 30 0RF metformin 500 mg tablet 500 mg PO BID Qty: 60 0RF (DME) blood-glucose meter Kit See Rx Instructions .Route Qty: 1 0RF Rx Instructions: As directed to check blood sugar daily (DME) Blood Glucose Test Strip See Rx Instructions .Route Qty: 50 2RF Rx Instructions: As directed to check blood sugar daily (DME) Comfort Touch Ult Thin Lancets 31 gauge misc See Rx Instructions .Route Qty: 100 2RF Rx Instructions: As directed to check blood sugar daily losartan 50 mg tablet 50 mg PO QDAY Qty: 90 0RF pantoprazole 40 mg tablet,delayed release (DR/EC) 40 mg PO QDAY Qty: 90 0RF sodium chloride 1,000 mg Tablet,Soluble 1,000 mg PO TIDWM Qty: 90 0RF nicotine 21 mg/24 hr Patch 24 Hour 21 mg top QDAY Qty: 14 0RF polyethylene glycol 3350 [Miralax] 17 gram powder in packet 17 g PO QDAY Qty: 30 0RF sennosides [senna] 8.6 mg tablet 8.6 mg PO QDAY PRN (Reason: constipation) Qty: 60 0RF Discontinued Eliquis 5 mg tablet 5 mg PO BID Qty: 30 0RF Rx Instructions: Start the medication on 09/17/24 Referrals: Magno Hammer MD [Primary Care Provider] - Patient/Caregiver Discharge Instructions Print Language: Greek Stand Alone Forms: [facility]odie Award Info., Patient Portal Info Letter Discharge Order Discharge Orders: Discharge (Routine); Ordered 09/23/24 Ordered By: Obey Easley Quality Discharge Quality Measures VTE prophylaxis (SCD) MD Attestestation MD Attestation I have discussed and was present for the essential components of the discharge history, physical examination, diagnosis, and discharge treatment plan with the resident. I agree with the patient's discharge care as documented by the resident and amended herein by me. Jonas Garcia, DO. Unfortunately due to the poor prognosis with the patient's metastatic esophageal adenocarcinoma, patient will return to SNF on comfort measures focus. POLST form has been revised, the prognosis has been explained to the patient and his son and they understand. Although this document has been carefully reviewed, there may still be some phonetic and other typographical errors. These errors are purely grammatical due to imperfections in the software program and should not be construed in any way to compromise the substance of the patient's medical care during this visit.
== END 2024-09-23 14:45 | disposition skilled nursing facility (03) | DRG 375 ==
LOC: SERX 22:26 → SERHOLD 22:38 → S3SX 09-22 13:50
PROVIDERS: Nurse Practitioner Family; Admitting Provider Internal Medicine; Emergency Provider Family Medicine; PCP Family Medicine; Visit Provider Student in an Organized Health Care Education/Training Program
DX: C15.5 Malignant neoplasm of lower third of esophagus (principal); C77.9 Secondary and unspecified malignant neoplasm of lymph node, unspecified; K92.1 Melena; C79.31 Secondary malignant neoplasm of brain; D62 Acute posthemorrhagic anemia; I48.20 Chronic atrial fibrillation, unspecified; H91.93 Unspecified hearing loss, bilateral; I95.9 Hypotension, unspecified; E11.9 Type 2 diabetes mellitus without complications; R16.0 Hepatomegaly, not elsewhere classified; J44.9 Chronic obstructive pulmonary disease, unspecified; I10 Essential (primary) hypertension; R00.0 Tachycardia, unspecified; Z87.891 Personal history of nicotine dependence; Z66 Do not resuscitate; Z79.01 Long term (current) use of anticoagulants; Z79.899 Other long term (current) drug therapy
CPT/HCPCS: 36415; 36430; 80053; 81001; 82270; 83540; 83550; 83735; 84100; 85014; 85018; 85025; 85046; 85610; 85730; 86850; 86900; 86901; 86923; 87081; 96361; 96374; 96376; 99285; G0378; J2470; J3490; J7030; P9016; A9270